=== PATIENT | male | born 1930 | race Caucasian/White ===

== ENCOUNTER 2018-10-10 15:16 | Inpatient (IN) | payer MEDICARE, OTHER ==
[~2018-10-10] VITALS: Ht 185.4 cm; Wt 83.7 kg
[~2018-10-10 15:16] MED LIST: ASPIRIN325 MG PO; BAYER CHEWABLE81 MG PO; CENTRUM COMPLE1 EACH PO; FLOMAX0.4 MG PO; GEMFIBROZIL600 MG PO; GLUCOPHAGE500 MG PO; LASIX20 MG PO; LOPRESSOR25 MG PO; METAMUCIL PACKE1 PKT PO; NORCO 5/325 TAB1 TA1 PO; PROAMATINE5 MG PO; VITAMIN B-121000 MC3 NG; VITAMIN D2000 UNIT PO
[2018-10-10 15:43] LABS: APPEARANCE CLEAR (CLEAR); BILIRUBIN NEGATIVE (NEGATIVE); COLOR YELLOW (YELLOW); GLUCOSE NEGATIVE (NEGATIVE); KETONE NEGATIVE (NEGATIVE); NITRITE NEGATIVE (NEGATIVE); PROTEIN NEGATIVE (NEGATIVE); SPECIFIC GRAVITY 1.015 (1.005-1.020); UROBILINOGEN NORMAL (NORMAL)
[2018-10-10 15:51] LABS: BASOPHILS 0.2 % (0-2); EOSINOPHILS 0.2 % (0-7); HEMATOCRIT 42.3 % (42.0-54.0); HEMOGLOBIN 14.4 g/dL (13.5-17.5); IMMATURE GRANULOCYTES 0.2 % (0-5); MCV 88.1 fL (80.0-100.0); MEAN PLATELET VOLUME 11.1 fL (7.4-10.4); MONOCYTES 7.7 % (2-11); NEUTROPHILS 86.7 % (40-80); PLATELET COUNT 318 10x3/uL (130-400); RDW 13.4 % (11.5-14.5); WBC 12.5 10x3/uL (4.8-10.8)
[2018-10-10 16:14] LABS: ALBUMIN 3.8 g/dL (3.4-5.0); ALKALINE PHOSPHATASE 59 U/L (46-116); ALT (SGPT) 25 U/L (10-68); BILIRUBIN - TOTAL 0.57 mg/dL (0.2-1.3); CALC OSMOLALITY 284 mosm/kg (275-300); CALCIUM 9.9 mg/dL (8.5-10.1); CARBON DIOXIDE 29.3 mmol/L (21.0-32.0); CHLORIDE - SERUM 101 mmol/L (98-107); CREATININE - SERUM 1.1 mg/dL (0.6-1.3); POTASSIUM - SERUM 4.8 mmol/L (3.5-5.1); PROTEIN - SERUM 7.2 g/dL (6.4-8.2); SODIUM 137 mmol/L (136-145); UREA NITROGEN 20 mg/dL (7-18); eGFR NON AFRICAN AMERICAN 67 mL/min (90-120)
[2018-10-10 16:16] LABS: GLUCOSE 247 mg/dL (74-106)
[2018-10-10 16:22] LABS: TROPONIN-I < 0.017 ng/mL (0.000-0.060)
[2018-10-10 16:30] LABS: AMYLASE - SERUM 1202 U/L (25-115); LIPASE 8647 U/L (73-393)
--- NOTE | 2018-10-10 18:25 | NUR ---
PER CT IV TO RIGHT WRIST POSSIBLE INFILTRATE DURING CT. SWELLING NOTED TO AREA. SWELLING NOTED AREA PRIOR TO CT DUE TO IV START ATTEMPT. PT NOT VOICING COMPLAINTS AT THIS TIME. IV RESITED DUE TO POSSIBLE INFILTRATE.
--- NOTE | 2018-10-10 18:38 | NUR ---
IV SALINE LOCK IN THE RIGHT WRIST WAS REMOVED DUE TO POSSIBLE INFILTRATE.
[2018-10-10 18:57] VITALS: BP 156/83
[2018-10-10 19:00] VITALS: BP 136/76
[2018-10-10 19:30] VITALS: BP 147/74
--- NOTE | 2018-10-10 19:42 | NUR ---
FSBS 137
--- NOTE | 2018-10-10 19:50 | NUR ---
ADVISED VIOLA WHITE OF FSBS 137. CANCELLED ORDER FOR INSULIN.
[2018-10-10 20:30] VITALS: BP 140/70
--- NOTE | 2018-10-10 21:28 | NUR ---
HPT TRANSPORTED TO THE FLOOR AT THIS TIME.
[2018-10-10 22:14] VITALS: BP 104/53; BMI 22.4
[2018-10-11] VITALS: BP 104/53
[2018-10-11 04:13] VITALS: BP 148/74
--- NOTE | 2018-10-11 07:07 | NUR ---
PT AWAKE AND ORIENTED, LYING IN BED ON BACK. PT STATES THAT THE MORPHINE REALLY ISN'T HELPING, PT HAS REACHED HIS MAX LIMIT ON HIS MORPHINE PUMP. NO OTHER COMPLAINTS/CONCERNS/COMMENTS AT THIS TIMIE, ALL QUESTIONS ANSWERED TOT HE BEST OF MY ABILITY. CL IN REACH, SRX2.
[2018-10-11 09:12] VITALS: BP 146/88
[2018-10-11 11:00] VITALS: BP 142/87
--- NOTE | 2018-10-11 11:06 | NUR ---
PT IS VERY FRUSTRATED HE HASN'T SEEN A DR YET. I EXPLAINED TO THE PT THAT DR. BORJAS SEE'S [facility] AND TYPICALLY ROUNDS LATER IN THE DAY, BUT THAT RICKI TERESA HAD ALREADY LOOKED AT HIS CHART AND PUT IN ORDERS, SO WE WERE DOING THINGS FOR HIM. D/C PTS RIVET TAPPING MACHINE OPERATOR PUMP, AND ADMINISTERED DILAUDID PER ORDER. PT HAS NO OTHER COMPLAINTS AT THIS TIME, BUT IS STILL MARKEDLY UNHAPPY AND FEELING IF NOTHING IS BEING DONE. CL IN REACH, SRX2.
--- NOTE | 2018-10-11 11:22 | NUR ---
WAISTED 5MG MORHPHINE FROM COIN MACHINE SUPERVISOR PUMP IN [place]. PT SAID THE DILAUDID FEELS LIKE IT WORKS A LITTLE BETTER, UNDERSTANDS HE CAN ONLY HAVE IT PRN. CL IN REACH, SRX2.
[2018-10-11 11:54] LABS: BASOPHILS 0.1 % (0-2); EOSINOPHILS 0 % (0-7); HEMATOCRIT 41.6 % (42.0-54.0); HEMOGLOBIN 14.3 g/dL (13.5-17.5); IMMATURE GRANULOCYTES 0.3 % (0-5); LYMPHOCYTES 2.8 % (15-50); MCH 30.3 pg (26.0-34.0); MCHC 34.4 g/dL (31.0-37.0); MCV 88.1 fL (80.0-100.0); MEAN PLATELET VOLUME 10.9 fL (7.4-10.4); MONOCYTES 10.1 % (2-11); NEUTROPHILS 86.7 % (40-80); PLATELET COUNT 330 10x3/uL (130-400); RBC 4.72 10x6/uL (4.20-6.10); RDW 13.7 % (11.5-14.5)
[2018-10-11 11:58] LABS: WBC 18.5 10x3/uL (4.8-10.8)
[2018-10-11 12:13] LABS: ALBUMIN 3.4 g/dL (3.4-5.0); BILIRUBIN - TOTAL 0.85 mg/dL (0.2-1.3); CARBON DIOXIDE 28.2 mmol/L (21.0-32.0); CREATININE - SERUM 1.1 mg/dL (0.6-1.3); POTASSIUM - SERUM 4.2 mmol/L (3.5-5.1); PROTEIN - SERUM 7.1 g/dL (6.4-8.2)
[2018-10-11 12:23] LABS: APTT 32.9 SECONDS (22.8-39.4); INR 1.11 (0.85-1.17); PROTIME 13.8 SECONDS (11.6-15.0)
[2018-10-11 14:21] VITALS: BMI 22.4
--- NOTE | 2018-10-11 14:50 | NUR ---
I have reviewed this patient and I concur with the Shift Assessment completed by the Licensed Practical Nurse today this shift.
[2018-10-11 15:00] VITALS: BP 139/86
--- NOTE | 2018-10-11 16:22 | NUR ---
PT AWAKE AND ORIENTED. NO COMPLAINTS, UNDERSTANDS PLAN OF CARE. AT BEDSIDE, THEY ARE BOTH CONCERNED BUT STATE UNDERSTANDING TO WHAT ALL IS GOING ON. PT IS WEARING SCDS FOR BLOOD CLOT PREVENTION .
[2018-10-11 16:43] VITALS: Ht 185.4 cm; Wt 83.7 kg
--- NOTE | 2018-10-11 16:54 | MORECARE ---
CASE MANAGEMENT DISCHARGE SUMMARY PATIENT: TYLER GIBBS UNIT: [id number] ADM DATE: 10/10/18 AGE: 88 : [birth year] SEX: M ROOM/BED: D.2102 AUTHOR: ROLLY,DOC PHYSICIAN: REFERRING PHYSICIAN: CÉSAR BORJAS MD DATE OF SERVICE: 10/11/18 Discharge Plan Patient Name: TYLER GIBBS Facility: [facility]:[place] : 1930 Planned Disposition: Home Anticipated Discharge Date: Discharge Date: Expected LOS: Initial Reviewer: [email or web address] Initial Review Date: 10/11/2018 Generated: 10/11/18 5:53 pm Comments DCP- Discharge Planning Updated by [email or web address]: Jose D Summers on 10/11/18 3:[address] Patient Name: TYLER GIBBS Admission Status: ER Accout number: [id number] Admission Date: 10-10-2018 : 1930 Admission Diagnosis: Attending: CÉSAR BORJAS Current LOS: 1 Anticipated DC Date: Planned Disposition: Home Primary Insurance: MEDICARE A & B Discharge Planning Comments: CM MET WITH PT AND SPOUSE IN ROOM TO DISCUSS DISCHARGE PLANNING AND NEEDS. TYLER GIBBS provided verbal consent to discuss current and ongoing needs with/in the presence of: SPOUSE, JYOTI. PT REPORTS LIVING AT HOME INDEPENDENTLY WITH HIS SPOUSE. PT HAS CPAP FROM [facility]. PT HAS NO OUTSIDE SERVICES ASSISTING IN THE HOME. CM DISCUSSED AVAILABILITY OF HOME HEALTH, REHAB SERVICES AND MEDICAL EQUIPMENT. PT DENIES DISCHARGE NEEDS, REPORTS HIS WILL PICK HIM UP FOR DISCHARGE HOME. PT PLANS TO DISCHARGE HOME WITH SPOUSE, HAS NO ANTICIPATED DISCHARGE NEEDS. SPOUSE TO TRANSPORT HOME AT DISCHARGE. CM TO FOLLOW AND ASSIST IF NEEDED. Pharmacovigilance Specialist: Jose D Summers DCPIA - Discharge Planning Initial Assessment Updated by [id number]: Jose D Summers on 10/11/18 4:51 pm * Is the patient Alert and Oriented? Yes * How many steps to enter\exit or inside your home? 0-O / 12-I * PCP [facility], [facility]NA[facility] [place] * Pharmacy [facility] * Preadmission Environment Home with Family * ADLs Independent * Equipment CPAP * Other Equipment [facility] - MEDICAL EQUIPMENT PROVIDER * List name and contact numbers for known caregivers / representatives who currently or will assist patient after discharge: JYOTI RIVER GIBBS, * Verbal permission to speak to the caregivers and representatives has been obtained from the patient. Yes * Community resources currently utilized None * Please name any agencies selected above. NONE * Additional services required to return to the preadmission environment? No * Can the patient safely return to the preadmission environment? Yes * Has this patient been hospitalized within the prior 30 days at any hospital? No Patient Name: TYLER GIBBS Page [id number] at 1654 All edits/amendments must be made on the electronic document DICTATION DATE: 10/11/181652 RIPRAP PLACING SUPERVISOR: FAMILIA 10/11/181652 RPT#: [id number] DC DATE: STATUS: ADM IN [facility] [address] [place] [address] END OF REPORT
--- NOTE | 2018-10-11 19:00 | NUR ---
PATIENT SITTING UP IN BED. NO COMPLAINTS AT THIS TIME. NO DISTRESS NOTED.. FAMILY AT BEDSIDE.
[2018-10-11 20:00] VITALS: BP 138/70
[2018-10-12 00:18] VITALS: BP 154/95
--- NOTE | 2018-10-12 02:00 | NUR ---
PATIENT LYAING IN BED. EYES CLOSED, CHEST RISING AND FALLING. NO DISTRESS NOTED.
[2018-10-12 04:00] VITALS: BP 185/99
[2018-10-12 06:04] LABS: BASOPHILS 0.1 % (0-2); EOSINOPHILS 0 % (0-7); HEMATOCRIT 42.2 % (42.0-54.0); HEMOGLOBIN 14.2 g/dL (13.5-17.5); IMMATURE GRANULOCYTES 0.4 % (0-5); LYMPHOCYTES 2.9 % (15-50); MCH 29.8 pg (26.0-34.0); MCHC 33.6 g/dL (31.0-37.0); MCV 88.7 fL (80.0-100.0); MEAN PLATELET VOLUME 11.6 fL (7.4-10.4); MONOCYTES 9.6 % (2-11); PLATELET COUNT 308 10x3/uL (130-400); RBC 4.76 10x6/uL (4.20-6.10); RDW 13.9 % (11.5-14.5); WBC 19.3 10x3/uL (4.8-10.8)
--- NOTE | 2018-10-12 06:11 | NUR ---
PATIENT LAYING IN BED. PATIENT HAS NO COMPLAINTS AT THIS TIME. NO DISTRESS NOTED.
[2018-10-12 06:45] LABS: ALBUMIN 3.1 g/dL (3.4-5.0); ANION GAP 13.7 mmol/L (8-16); BILIRUBIN - TOTAL 0.78 mg/dL (0.2-1.3); CALCIUM 8.6 mg/dL (8.5-10.1); CARBON DIOXIDE 27.5 mmol/L (21.0-32.0); CREATININE - SERUM 1.3 mg/dL (0.6-1.3); POTASSIUM - SERUM 4.2 mmol/L (3.5-5.1); PROTEIN - SERUM 6.2 g/dL (6.4-8.2)
--- NOTE | 2018-10-12 06:53 | NUR ---
INANA ROUNDING, WHITE BOARD UPDATED. PATIENT IS AWAKE AND RESTING IN THE BED. YELLOW GOWN ON, BED ALARM ON, CALL LIGHT IN REACH. PATIENT REPORTS PAIN AT 6/10 IN THE UPPER CHEST AREA. HE ALSO REPORTS LAST BM WAS THURSDAY MORNING.
--- NOTE | 2018-10-12 07:00 | NUR ---
PATIENT LAYING IN BED. NO COMPLAINTS AT THIS TIME. NO DISTRESS NOTED.
[2018-10-12 08:00] VITALS: BP 148/13
--- NOTE | 2018-10-12 09:10 | NUR ---
THE PATIENT HAS REMOVED THE IV TO THE RIGHT AC AREA WHILE HE WAS SLEEPING. CATH TIP INTACT.
[2018-10-12 12:00] VITALS: BP 144/84
[2018-10-12 15:45] VITALS: BP 154/78
[2018-10-12 20:00] VITALS: BP 163/80
[2018-10-13] VITALS (14 sets, daily range): BP systolic 131–175; BP diastolic 72–93
--- NOTE | 2018-10-13 02:00 | NUR ---
PATIENT GIVEN SHOWER. PATIENT BACK IN BED WITH BED ALARM ON. NO COMPLAINTS AT THIS TIME. NO DISTRESS NOTED.
--- NOTE | 2018-10-13 06:58 | NUR ---
INITIAL ROUNDING, BEDSIDE REPORT, PATIENT AWAKE AND RESTING IN BED, REPORTING PAIN OF 7/10 IN ABD. CONSENTS SIGNED AT THIS TIME. CALL LIGHT IN REACH
[2018-10-13 08:19] LABS: BASOPHILS 0.1 % (0-2); EOSINOPHILS 0.1 % (0-7); HEMATOCRIT 36.6 % (42.0-54.0); HEMOGLOBIN 12.3 g/dL (13.5-17.5); IMMATURE GRANULOCYTES 0.4 % (0-5); MCH 29.5 pg (26.0-34.0); MCHC 33.6 g/dL (31.0-37.0); MCV 87.8 fL (80.0-100.0); MONOCYTES 12.6 % (2-11); NEUTROPHILS 81.8 % (40-80); PLATELET COUNT 259 10x3/uL (130-400); RBC 4.17 10x6/uL (4.20-6.10); RDW 13.7 % (11.5-14.5); WBC 15.7 10x3/uL (4.8-10.8)
[2018-10-13 08:32] LABS: ALBUMIN 2.5 g/dL (3.4-5.0); ANION GAP 9.7 mmol/L (8-16); BILIRUBIN - TOTAL 0.7 mg/dL (0.2-1.3); CALCIUM 8.6 mg/dL (8.5-10.1); CARBON DIOXIDE 29.3 mmol/L (21.0-32.0); CREATININE - SERUM 1.1 mg/dL (0.6-1.3); PROTEIN - SERUM 6.3 g/dL (6.4-8.2)
--- NOTE | 2018-10-13 09:07 | NUR ---
GUSTAVO FROM SURG CALLED TO VERIFY THE CONSENTS BEING SIGNED AND ON THE CHART, ALL COMPLETE AND ON CHART. GUSTAVO CONFIRMED THERE IS NO PROP ORDERES AND STATED "ILL TAKE CARE OF THAT DOWN HERE, WE ARE ON THE WAY TO COME GET HIM" PATIENT INFORMED AND THE SPOUSE CALLED [phone] AND NOTIFIED. SHE WAS A BIT CONFUSED STATING "I JUST CALLED AND THEY SAID IT WOULD BED 1 PM"
--- NOTE | 2018-10-13 11:31 | NUR ---
RECVD REPORT FROM LORI IN [facility]. PATIENT DENIES PAIN AFTER .5 DILAUDID. ON O2 2LPM NC.
--- NOTE | 2018-10-13 15:07 | NUR ---
PATIENT COMPLAINING OF PAIN AND BELCHING. INSTRUCTED THE PATIENT AND SPOUSE THE BELCHING IS NORMAL AND A GOOD THING, INSTRUCTED ON POST PROCEDURE, BOTH STATE UNDERSTANDING.
--- NOTE | 2018-10-13 15:21 | NUR ---
CALLED DR BORJAS INQUIRING ABOUT DIET, CLEAR AND ADVANCE TOLERATED
--- NOTE | 2018-10-13 19:00 | NUR ---
PATIENT SITTING UP TO SIDE OF BED. AT BEDSIDE. PATIENT HAS NO COMPLAINTS AT THIS TIME. NO DISTRESS NOTED.
--- NOTE | 2018-10-14 02:18 | NUR ---
PATIENT'S IV PULLED OUT WHILE SLEEPING. IV TIP INTACT. NEW IV TO RIGHT FOREARM X1 ATTEMPT.
[2018-10-14 04:00] VITALS: BP 170/82
[2018-10-14 04:30] LABS: BASOPHILS 0 % (0-2); EOSINOPHILS 0.1 % (0-7); HEMATOCRIT 34.1 % (42.0-54.0); HEMOGLOBIN 11.5 g/dL (13.5-17.5); IMMATURE GRANULOCYTES 0.4 % (0-5); LYMPHOCYTES 3.9 % (15-50); MCH 29.3 pg (26.0-34.0); MCHC 33.7 g/dL (31.0-37.0); MCV 86.8 fL (80.0-100.0); MONOCYTES 15.2 % (2-11); NEUTROPHILS 80.4 % (40-80); RBC 3.93 10x6/uL (4.20-6.10); RDW 13.5 % (11.5-14.5); WBC 14.2 10x3/uL (4.8-10.8)
[2018-10-14 04:33] LABS: PLATELET COUNT 319 10x3/uL (130-400)
[2018-10-14 04:56] LABS: ALBUMIN 2.4 g/dL (3.4-5.0); ALKALINE PHOSPHATASE 48 U/L (46-116); ALT (SGPT) 31 U/L (10-68); BILIRUBIN - TOTAL 0.89 mg/dL (0.2-1.3); CALC OSMOLALITY 279 mosm/kg (275-300); CALCIUM 8.1 mg/dL (8.5-10.1); CARBON DIOXIDE 26.3 mmol/L (21.0-32.0); CHLORIDE - SERUM 102 mmol/L (98-107); CREATININE - SERUM 0.9 mg/dL (0.6-1.3); GLUCOSE 213 mg/dL (74-106); LIPASE 128 U/L (73-393); POTASSIUM - SERUM 3.9 mmol/L (3.5-5.1); PROTEIN - SERUM 6.3 g/dL (6.4-8.2); SODIUM 136 mmol/L (136-145); UREA NITROGEN 18 mg/dL (7-18); eGFR NON AFRICAN AMERICAN 84 mL/min (90-120)
--- NOTE | 2018-10-14 08:10 | NUR ---
INITIAL ROUNDING, BEDSIDE REPORT. WHITE BOARD UPDATED. PATIENTS IV TO THE RIGHT LOWER ARM IS INFILTRATED, ARM SWOLLEN/TIGHT. FLUIDS STOPPED AT THIS TIME. CALL LIGHT IN REACH. PATIENT DENIES BM LAST NIGHT. SPOUSE AT BEDSIDE.
[2018-10-14 08:22] VITALS: BP 185/92
[2018-10-14 13:22] VITALS: BP 168/94
--- NOTE | 2018-10-14 16:55 | MORECARE ---
CASE MANAGEMENT DISCHARGE SUMMARY PATIENT: TYLER GIBBS UNIT: [id number] ADM DATE: 10/10/18 AGE: 88 : [birth year] SEX: M ROOM/BED: D.2102 AUTHOR: ROLLY,DOC PHYSICIAN: REFERRING PHYSICIAN: CÉSAR BORJAS MD DATE OF SERVICE: 10/14/18 Discharge Plan Patient Name: TYLER GIBBS Facility: [facility]:[place] : 1930 Planned Disposition: Home with Home Health Anticipated Discharge Date: 10/14/18 Discharge Date: Expected LOS: 4 Initial Reviewer: [email or web address] Initial Review Date: 10/11/2018 Generated: 10/14/18 5:55 pm DCP- Discharge Planning Updated by [email or web address]: Jose D Summers on 10/11/18 3:[address] Patient Name: TYLER GIBBS Admission Status: ER Accout number: [id number] Admission Date: 10-10-2018 : 1930 Admission Diagnosis: Attending: CÉSAR BORJAS Current LOS: 1 Anticipated DC Date: Planned Disposition: Home Primary Insurance: MEDICARE A & B Discharge Planning Comments: CM MET WITH PT AND SPOUSE IN ROOM TO DISCUSS DISCHARGE PLANNING AND NEEDS. TYLER GIBBS provided verbal consent to discuss current and ongoing needs with/in the presence of: SPOUSE, JYOTI. PT REPORTS LIVING AT HOME INDEPENDENTLY WITH HIS SPOUSE. PT HAS CPAP FROM [facility]. PT HAS NO OUTSIDE SERVICES ASSISTING IN THE HOME. CM DISCUSSED AVAILABILITY OF HOME HEALTH, REHAB SERVICES AND MEDICAL EQUIPMENT. PT DENIES DISCHARGE NEEDS, REPORTS HIS WILL PICK HIM UP FOR DISCHARGE HOME. PT PLANS TO DISCHARGE HOME WITH SPOUSE, HAS NO ANTICIPATED DISCHARGE NEEDS. SPOUSE TO TRANSPORT HOME AT DISCHARGE. CM TO FOLLOW AND ASSIST IF NEEDED. Beauty Counselor: Jose D Summers DCPIA - Discharge Planning Initial Assessment Updated by [email or web address]: Jose D Summers on 10/11/18 4:51 pm * Is the patient Alert and Oriented? Yes * How many steps to enter\exit or inside your home? 0-O / 12-I * PCP [facility], [place] * [facility] * Preadmission Environment Home with Family * ADLs Independent * Equipment CPAP * Other Equipment [facility] - MEDICAL EQUIPMENT PROVIDER * List name and contact numbers for known caregivers / representatives who currently or will assist patient after discharge: JYOTI GIBBSRIVER, * Verbal permission to speak to the caregivers and representatives has been obtained from the patient. Yes * Community resources currently utilized None * Please name any agencies selected above. NONE * Additional services required to return to the preadmission environment? No * Can the patient safely return to the preadmission environment? Yes * Has this patient been hospitalized within the prior 30 days at any hospital? No External Providers External Provider: [facility] Next Contact Date: 10/15/2018 Service Request Date: Service Type: Resolution: Reviewer: Comments: Coverage Notice Reviewer: [email or web address] - Jose D Summers Notice Issued Date-Time: 10/14/2018 11:25 Notice Type: IM Discharge Notice Notice Delivered To: Patient Relationship to Patient: Chinese Teacher Name: Delivery Method: HAND - Hand Delivered Latesha Days: Prior Verbal Notification: Recipient Understood Notice: Yes Recipient Signature: Yes Med Rec Note Co-signed by Attending: Coverage Notice Comment: Last DP export: 10/11/18 3:54 p Patient Name: TYLER GIBBS Page 16756 at 1655 All edits/amendments must be made on the electronic document DICTATION DATE: 10/14/181654 AUDIO VISUAL COLLECTIONS COORDINATOR: FAMILIA 10/14/181654 RPT#: [id number] DC DATE: STATUS: ADM IN [facility] [address] [place] [address] END OF REPORT
--- NOTE | 2018-10-14 17:03 | MORECARE ---
CASE MANAGEMENT DISCHARGE SUMMARY PATIENT: TYLER GIBBS UNIT: [id number] ADM DATE: 10/10/18 AGE: 88 : [birth year] SEX: M ROOM/BED: D.2102 AUTHOR: ROLLY,DOC PHYSICIAN: REFERRING PHYSICIAN: CÉSAR BORJAS MD DATE OF SERVICE: 10/14/18 Discharge Plan Patient Name: TYLER GIBBS Facility: [facility]:[place] : 1930 Planned Disposition: Home with Home Health Anticipated Discharge Date: 10/14/18 Discharge Date: Expected LOS: 4 Initial Reviewer: [email or web address] Initial Review Date: 10/11/2018 Generated: 10/14/18 6:03 pm DCP- Discharge Planning Updated by [email or web address]: Jose D Summers on 10/11/18 3:[address] Patient Name: TYLER GIBBS Admission Status: ER Accout number: [id number] Admission Date: 10-10-2018 : 1930 Admission Diagnosis: Attending: CÉSAR BORJAS Current LOS: 1 Anticipated DC Date: Planned Disposition: Home Primary Insurance: MEDICARE A & B Discharge Planning Comments: CM MET WITH PT AND SPOUSE IN ROOM TO DISCUSS DISCHARGE PLANNING AND NEEDS. TYLER GIBBS provided verbal consent to discuss current and ongoing needs with/in the presence of: SPOUSE, JYOTI. PT REPORTS LIVING AT HOME INDEPENDENTLY WITH HIS SPOUSE. PT HAS CPAP FROM [facility]. PT HAS NO OUTSIDE SERVICES ASSISTING IN THE HOME. CM DISCUSSED AVAILABILITY OF HOME HEALTH, REHAB SERVICES AND MEDICAL EQUIPMENT. PT DENIES DISCHARGE NEEDS, REPORTS HIS WILL PICK HIM UP FOR DISCHARGE HOME. PT PLANS TO DISCHARGE HOME WITH SPOUSE, HAS NO ANTICIPATED DISCHARGE NEEDS. SPOUSE TO TRANSPORT HOME AT DISCHARGE. CM TO FOLLOW AND ASSIST IF NEEDED. Livestock Auctioneer: Jose D Summers DCPIA - Discharge Planning Initial Assessment Updated by [email or web address]: Jose D Summers on 10/11/18 4:51 pm * Is the patient Alert and Oriented? Yes * How many steps to enter\exit or inside your home? 0-O / 12-I * PCP [facility], [place] * [facility] * Preadmission Environment Home with Family * ADLs Independent * Equipment CPAP * Other Equipment [facility] - MEDICAL EQUIPMENT PROVIDER * List name and contact numbers for known caregivers / representatives who currently or will assist patient after discharge: RIVER MON[place], * Verbal permission to speak to the caregivers and representatives has been obtained from the patient. Yes * Community resources currently utilized None * Please name any agencies selected above. NONE * Additional services required to return to the preadmission environment? No * Can the patient safely return to the preadmission environment? Yes * Has this patient been hospitalized within the prior 30 days at any hospital? No Coverage Notice Reviewer: JULIET Summers Notice Issued Date-Time: 10/14/2018 11:25 Notice Type: IM Discharge Notice Notice Delivered To: Patient Relationship to Patient: Application Systems Administrator Name: Delivery Method: HAND - Hand Delivered Latesha Days: Prior Verbal Notification: Recipient Understood Notice: Yes Recipient Signature: Yes Med Rec Note Co-signed by Attending: Coverage Notice Comment: Reviewer: JULIET Summers Notice Issued Date-Time: 10/14/2018 11:25 Notice Type: IM Discharge Notice Notice Delivered To: Family Member Relationship to Patient: Spouse Application Systems Administrator Name: JYOTI Delivery Method: HAND - Hand Delivered Latesha Days: Prior Verbal Notification: Recipient Understood Notice: Yes Recipient Signature: Yes Med Rec Note Co-signed by Attending: Coverage Notice Comment: Reviewer: JULIET Summers Notice Issued Date-Time: 10/14/2018 11:25 Notice Type: Patient Choice Letter Notice Delivered To: Family Member Relationship to Patient: Spouse Application Systems Administrator Name: JYOTI Delivery Method: HAND - Hand Delivered Latesha Days: Prior Verbal Notification: Recipient Understood Notice: Yes Recipient Signature: Yes Med Rec Note Co-signed by Attending: Coverage Notice Comment: [facility] Last DP export: 10/14/18 3:55 p Patient Name: TYLER GIBBS Page [id number] at 1703 All edits/amendments must be made on the electronic document DICTATION DATE: 10/14/181702 SUPERVISOR FOOD CHECKERS AND CASHIERS: FAMILIA 10/14/181702 RPT#: [id number] DC DATE: STATUS: ADM IN [facility] [address] [place] [address] END OF REPORT
--- NOTE | 2018-10-14 17:13 | MORECARE ---
CASE MANAGEMENT DISCHARGE SUMMARY PATIENT: TYLER GIBBS UNIT: [id number] ADM DATE: 10/10/18 AGE: 88 : [birth year] SEX: M ROOM/BED: D.2102 AUTHOR: ROLLY,DOC PHYSICIAN: REFERRING PHYSICIAN: CÉSAR BORJAS MD DATE OF SERVICE: 10/14/18 Discharge Plan Patient Name: TYLER GIBBS Facility: [facility]:[place] : 1930 Planned Disposition: Home with Home Health Anticipated Discharge Date: 10/14/18 Discharge Date: Expected LOS: 4 Initial Reviewer: [email or web address] Initial Review Date: 10/11/2018 Generated: 10/14/18 6:12 pm Comments DCP- Discharge Planning Updated by [email or web address]: Jose D Summers on 10/14/18 4:[address] Patient Name: TYLER GIBBS Encounter No: [id number] : 1930 Primary Insurance: MEDICARE A & B Anticipated DC Date: 10-14-2018 Planned Disposition: Home with Home Health External Planned Provider: [facility] DCP follow-up note: CM RECEIVED REQUEST TO MEET WITH PT AND SPOUSE IN ROOM TO DISCUSS DISCHARGE PLANNING. PT'S SPOUSE IS CONCERNED THAT PT MAY DISCHARGE HOME TODAY AND SHE HAS THINGS TO DO TODAY AND WOULD LIKE PT TO STAY IN THE HOSPITAL ONE MORE NIGHT. CM DISCUSSED WHEN PT IS MEDICALLY STABLE FOR DISCHARGE PT WILL BE DISCHARGED. PT'S SPOUSE WANTS CM TO ENSURE THAT THE DOCTOR DOES NOT DISCHARGE PT TODAY. CM EXPLAINED CM'S ROLE. CM OFFERED TO ASSIST WITH REHAB PLACEMENT OR OTHER OUT OF HOME PLACMENT. PT AND SPOUSE DECLINED. PT STATES HE WILL BE GOING HOME. PT'S SPOUSE STATES SHE WILL BE HERE AT 5PM BUT WILL NOT BE READY TO TAKE PT HOME UNTIL TOMORROW. PT'S SPOUSE REQUESTED HOME HEALTH WITH [facility]. CHOICE LETTER SIGNED. IMPORTANT MESSAGE FROM MEDICARE PROVIDED AND EXPLAINED. CM OBTAINED HOME HEALTH ORDER. CM CALLED [facility] [phone],. SPOKE TO NISSA WHO ACCEPTED REFERRAL FOR ADMIT ON THURSDAY. CM FAXED REFERRAL TO [facility] AT [phone]. FOR DISCHARGE HOME WITH HOME HEALTH, NOTIFY [facility] AT [phone], FAX DISCHARGE INFORMATION TO [facility] AT [phone]. Jose D Summers,. CASE MANAGEMENT DCP- Discharge Planning Updated by [email or web address]: Jose D Summers on 10/11/18 3:[address] Patient Name: TYLER GIBBS Admission Status: ER Accout number: [id number] Admission Date: 10-10-2018 : 1930 Admission Diagnosis: Attending: CÉSAR BORJAS Current LOS: 1 Anticipated DC Date: Planned Disposition: Home Primary Insurance: MEDICARE A & B Discharge Planning Comments: CM MET WITH PT AND SPOUSE IN ROOM TO DISCUSS DISCHARGE PLANNING AND NEEDS. TYLER GIBBS provided verbal consent to discuss current and ongoing needs with/in the presence of: SPOUSE, JYOTI. PT REPORTS LIVING AT HOME INDEPENDENTLY WITH HIS SPOUSE. PT HAS CPAP FROM [facility]. PT HAS NO OUTSIDE SERVICES ASSISTING IN THE HOME. CM DISCUSSED AVAILABILITY OF HOME HEALTH, REHAB SERVICES AND MEDICAL EQUIPMENT. PT DENIES DISCHARGE NEEDS, REPORTS HIS WILL PICK HIM UP FOR DISCHARGE HOME. PT PLANS TO DISCHARGE HOME WITH SPOUSE, HAS NO ANTICIPATED DISCHARGE NEEDS. SPOUSE TO TRANSPORT HOME AT DISCHARGE. CM TO FOLLOW AND ASSIST IF NEEDED. Human Resources Services Specialist: Jose D Summers DCPIA - Discharge Planning Initial Assessment Updated by [email or web address]: Jose D Summers on 10/11/18 4:51 pm * Is the patient Alert and Oriented? Yes * How many steps to enter\exit or inside your home? 0-O / 12-I * PCP [facility], [place]I [place] * [facility] * Preadmission Environment Home with Family * ADLs Independent * Equipment CPAP * Other Equipment [facility] - MEDICAL EQUIPMENT PROVIDER * List name and contact numbers for known caregivers / representatives who currently or will assist patient after discharge: JYOTI WINKLERRIVER MCDONALD, * Verbal permission to speak to the caregivers and representatives has been obtained from the patient. Yes * Community resources currently utilized None * Please name any agencies selected above. NONE * Additional services required to return to the preadmission environment? No * Can the patient safely return to the preadmission environment? Yes * Has this patient been hospitalized within the prior 30 days at any hospital? No Coverage Notice Reviewer: [id number] - Jose D Summers Notice Issued Date-Time: 10/14/2018 11:25 Notice Type: IM Discharge Notice Notice Delivered To: Patient Relationship to Patient: Senior Group Manager Name: Delivery Method: HAND - Hand Delivered Latesha Days: Prior Verbal Notification: Recipient Understood Notice: Yes Recipient Signature: Yes Med Rec Note Co-signed by Attending: Coverage Notice Comment: Reviewer: JULIET Summers Notice Issued Date-Time: 10/14/2018 11:25 Notice Type: IM Discharge Notice Notice Delivered To: Family Member Relationship to Patient: Spouse Senior Group Manager Name: JYOTI Delivery Method: HAND - Hand Delivered Latesha Days: Prior Verbal Notification: Recipient Understood Notice: Yes Recipient Signature: Yes Med Rec Note Co-signed by Attending: Coverage Notice Comment: Reviewer: JULIET Summers Notice Issued Date-Time: 10/14/2018 11:25 Notice Type: Patient Choice Letter Notice Delivered To: Family Member Relationship to Patient: Spouse Senior Group Manager Name: JYOTI Delivery Method: HAND - Hand Delivered Latesha Days: Prior Verbal Notification: Recipient Understood Notice: Yes Recipient Signature: Yes Med Rec Note Co-signed by Attending: Coverage Notice Comment: [facility] Last DP export: 10/14/18 4:03 p Patient Name: TYLER GIBBS Page 14667 at 1713 All edits/amendments must be made on the electronic document DICTATION DATE: 10/14/181711 TREAD BOOKER: FAMILIA 10/14/181711 RPT#: [id number] DC DATE: STATUS: ADM IN [facility] [address] [place] [address] END OF REPORT
[2018-10-14 17:31] VITALS: BP 164/83
[2018-10-14 20:00] VITALS: BP 172/95
--- NOTE | 2018-10-14 20:17 | NUR ---
ASSISTED THE PATIENT WITH A SHOWER AND LINEN CHANGE. PATIENT HAD LARGE SOFT BM IN BED.
[2018-10-15] VITALS: BP 148/67
[2018-10-15 04:48] LABS: BASOPHILS 0.1 % (0-2); EOSINOPHILS 0.3 % (0-7); HEMATOCRIT 32.2 % (42.0-54.0); IMMATURE GRANULOCYTES 0.5 % (0-5); LYMPHOCYTES 5.3 % (15-50); MCH 29.5 pg (26.0-34.0); MCHC 34.2 g/dL (31.0-37.0); MCV 86.3 fL (80.0-100.0); MEAN PLATELET VOLUME 10.7 fL (7.4-10.4); MONOCYTES 15.9 % (2-11); NEUTROPHILS 77.9 % (40-80); PLATELET COUNT 282 10x3/uL (130-400); RBC 3.73 10x6/uL (4.20-6.10); RDW 13.3 % (11.5-14.5); WBC 15.2 10x3/uL (4.8-10.8)
[2018-10-15 04:57] LABS: CALC OSMOLALITY 282 mosm/kg (275-300); CALCIUM 8.2 mg/dL (8.5-10.1); CARBON DIOXIDE 26.9 mmol/L (21.0-32.0); CHLORIDE - SERUM 103 mmol/L (98-107); CREATININE - SERUM 0.9 mg/dL (0.6-1.3); POTASSIUM - SERUM 3.5 mmol/L (3.5-5.1); SODIUM 138 mmol/L (136-145); UREA NITROGEN 21 mg/dL (7-18); eGFR NON AFRICAN AMERICAN 84 mL/min (90-120)
[2018-10-15 04:59] LABS: GLUCOSE 162 mg/dL (74-106)
--- NOTE | 2018-10-15 05:41 | NUR ---
I have reviewed this patient and I concur with the Shift Assessment completed by the Licensed Practical Nurse today this shift.
--- NOTE | 2018-10-15 07:52 | NUR ---
PT LAYING ON LEFT SIDE RESTING WITH EYES CLOSED. RR EVEN AND UNLABORED. NO S/S OF DISTRESS. BED ALARM ON AND IN PLACE. BED LOW CALL LIGHT WITHIN REACH. WILL CONTINUE TO MONITOR.
[2018-10-15 09:49] VITALS: BP 145/67
--- NOTE | 2018-10-15 10:33 | MORECARE ---
CASE MANAGEMENT DISCHARGE SUMMARY PATIENT: TYLER GIBBS UNIT: [id number] ADM DATE: 10/10/18 AGE: 88 : [birth year] SEX: M ROOM/BED: D.2102 AUTHOR: ROLLY,DOC PHYSICIAN: REFERRING PHYSICIAN: CÉSAR BORJAS MD DATE OF SERVICE: 10/15/18 Discharge Plan Patient Name: TYLER GIBBS Facility: [facility]:[place] : 1930 Planned Disposition: Home with Home Health Anticipated Discharge Date: 10/14/18 Discharge Date: Expected LOS: 4 Initial Reviewer: [email or web address] Initial Review Date: 10/11/2018 Generated: 10/15/18 11:33 am Comments DCP- Discharge Planning Updated by [email or web address]: Lisa Ramírez on 10/15/18 9:[address] PATIENT IS SEEN IN [facility] WILL FORWARD DISCHARGE ORDERS FROM [facility] TO [place] WHEN RECEIVED. DCP- Discharge Planning Updated by [id number]: Lisa Ramírez on 10/15/18 9:[address] [facility] HAS RECEIVED A REFERRAL W/ ORDERS FROM [facility] PER [facility] TODAY. PATIENT IS ON THE LIST TO BE SEEN. POSSIBLE DISCHARGE TO HOME TODAY. AWAITI MD ROUNDS. SURGERY HAS CLEARED PATIENT FOR DISCHARGE PER THE 10/14/18 NOTE. DCP- Discharge Planning Updated by [id number]: Jose D Summers on 10/14/18 4:[address] Patient Name: TYLER GIBBS Encounter No: [id number] : 1930 Primary Insurance: MEDICARE A & B Anticipated DC Date: 10-14-2018 Planned Disposition: Home with Home Health External Planned Provider: [facility] DCP follow-up note: CM RECEIVED REQUEST TO MEET WITH PT AND SPOUSE IN ROOM TO DISCUSS DISCHARGE PLANNING. PT'S SPOUSE IS CONCERNED THAT PT MAY DISCHARGE HOME TODAY AND SHE HAS THINGS TO DO TODAY AND WOULD LIKE PT TO STAY IN THE HOSPITAL ONE MORE NIGHT. CM DISCUSSED WHEN PT IS MEDICALLY STABLE FOR DISCHARGE PT WILL BE DISCHARGED. PT'S SPOUSE WANTS CM TO ENSURE THAT THE DOCTOR DOES NOT DISCHARGE PT TODAY. CM EXPLAINED CM'S ROLE. CM OFFERED TO ASSIST WITH REHAB PLACEMENT OR OTHER OUT OF HOME PLACMENT. PT AND SPOUSE DECLINED. PT STATES HE WILL BE GOING HOME. PT'S SPOUSE STATES SHE WILL BE HERE AT 5PM BUT WILL NOT BE READY TO TAKE PT HOME UNTIL TOMORROW. PT'S SPOUSE REQUESTED HOME HEALTH WITH [facility]. CHOICE LETTER SIGNED. IMPORTANT MESSAGE FROM MEDICARE PROVIDED AND EXPLAINED. CM OBTAINED HOME HEALTH ORDER. CM CALLED [facility] [phone],. SPOKE TO NISSA WHO ACCEPTED REFERRAL FOR ADMIT ON THURSDAY. CM FAXED REFERRAL TO [place] AT [phone]. FOR DISCHARGE HOME WITH HOME HEALTH, NOTIFY MIST[facility] AT [phone], FAX DISCHARGE INFORMATION TO [place] AT [phone]. Jose D Summers,. CASE MANAGEMENT DCP- Discharge Planning Updated by [id number]: Jose D Summers on 10/11/18 3:[address] Patient Name: TYLER GIBBS Admission Status: ER Accout number: [id number] Admission Date: 10-10-2018 : 1930 Admission Diagnosis: Attending: CÉSAR BORJAS Current LOS: 1 Anticipated DC Date: Planned Disposition: Home Primary Insurance: MEDICARE A & B Discharge Planning Comments: CM MET WITH PT AND SPOUSE IN ROOM TO DISCUSS DISCHARGE PLANNING AND NEEDS. TYLER GIBBS provided verbal consent to discuss current and ongoing needs with/in the presence of: SPOUSE, JYOTI. PT REPORTS LIVING AT HOME INDEPENDENTLY WITH HIS SPOUSE. PT HAS CPAP FROM [facility]. PT HAS NO OUTSIDE SERVICES ASSISTING IN THE HOME. CM DISCUSSED AVAILABILITY OF HOME HEALTH, REHAB SERVICES AND MEDICAL EQUIPMENT. PT DENIES DISCHARGE NEEDS, REPORTS HIS WILL PICK HIM UP FOR DISCHARGE HOME. PT PLANS TO DISCHARGE HOME WITH SPOUSE, HAS NO ANTICIPATED DISCHARGE NEEDS. SPOUSE TO TRANSPORT HOME AT DISCHARGE. CM TO FOLLOW AND ASSIST IF NEEDED. Care Team Coordinator Scheduler: Jose D Summers DCPIA - Discharge Planning Initial Assessment Updated by [id number]: Jose D Summers on 10/11/18 4:51 pm * Is the patient Alert and Oriented? Yes * How many steps to enter\exit or inside your home? 0-O / 12-I * PCP [facility], RICKI SEVILLA * Pharmacy [facility] * Preadmission Environment Home with Family * ADLs Independent * Equipment CPAP * Other Equipment [facility] - MEDICAL EQUIPMENT PROVIDER * List name and contact numbers for known caregivers / representatives who currently or will assist patient after discharge: [facility] [place], * Verbal permission to speak to the caregivers and representatives has been obtained from the patient. Yes * Community resources currently utilized None * Please name any agencies selected above. NONE * Additional services required to return to the preadmission environment? No * Can the patient safely return to the preadmission environment? Yes * Has this patient been hospitalized within the prior 30 days at any hospital? No Coverage Notice Reviewer: JULIET Summers Notice Issued Date-Time: 10/14/2018 11:25 Notice Type: IM Discharge Notice Notice Delivered To: Patient Relationship to Patient: Manager International Name: Delivery Method: HAND - Hand Delivered Latesha Days: Prior Verbal Notification: Recipient Understood Notice: Yes Recipient Signature: Yes Med Rec Note Co-signed by Attending: Coverage Notice Comment: Reviewer: JULIET Summers Notice Issued Date-Time: 10/14/2018 11:25 Notice Type: IM Discharge Notice Notice Delivered To: Family Member Relationship to Patient: Spouse Manager International Name: JYOTI Delivery Method: HAND - Hand Delivered Latesha Days: Prior Verbal Notification: Recipient Understood Notice: Yes Recipient Signature: Yes Med Rec Note Co-signed by Attending: Coverage Notice Comment: Reviewer: JULIET Summers Notice Issued Date-Time: 10/14/2018 11:25 Notice Type: Patient Choice Letter Notice Delivered To: Family Member Relationship to Patient: Spouse Manager International Name: JYOTI Delivery Method: HAND - Hand Delivered Latesha Days: Prior Verbal Notification: Recipient Understood Notice: Yes Recipient Signature: Yes Med Rec Note Co-signed by Attending: Coverage Notice Comment: [facility] Last DP export: 10/14/18 4:13 p Patient Name: TYLER GIBBS Page [id number] at 1033 All edits/amendments must be made on the electronic document DICTATION DATE: 10/15/18 1033 ROOF MECHANIC: FAMILIA 10/15/18 1033 RPT#: [id number] DC DATE: STATUS: ADM IN [facility] [address] [place] [address] END OF REPORT
[2018-10-15 12:21] VITALS: BP 135/75
--- NOTE | 2018-10-15 14:58 | NUR ---
Nutrition follow-up: Diet: ADA consistent CHO PO intake has been poor; pt constipated and Dulcolax started Pt had BM; PO intake may improve now Labs reviewed RDN following.
--- NOTE | 2018-10-15 15:27 | NUR ---
UP TO BR WITH SAMPLE STEAMER ASSIST. AT BS. IV INFUSING. WILL CONT. TO MONITOR NEEDS.
--- NOTE | 2018-10-15 16:51 | NUR ---
I have reviewed this patient and I concur with the Shift Assessment completed by the Licensed Practical Nurse today this shift.
[2018-10-15 17:31] VITALS: BP 163/84
--- NOTE | 2018-10-15 19:30 | NUR ---
PT NOTED SITTING IN RECLINER IN HIS ROOM VISITING WITH HIS . HE IS ALERT AND ORIENTED X 3. PT STATES HE FEELS DISCOMFORT ALL OVER, BUT HAS NO SPECIFIC COMPLAINTS. PT ASSISTED INTO BED WITH MOD ASSIST PER HIS REQUEST. O2 IS ON @ 2LPM PER NC. NO SOB NOTED. INCISIONS TO ABD ARE CDI AND HEALING WELL. SR'S ARE UP X 2 IN BED. CALL LIGHT AND BEDSIDE TABLE ARE WITHIN EASY REACH.
[2018-10-15 20:00] VITALS: BP 177/90
--- NOTE | 2018-10-15 22:18 | NUR ---
PT IS RESTING QUIETLY IN BED WITH EYES CLOSED. RESPS ARE EVEN AND UNLABORED. NO ACUTE DISTRESS NOTED.
[2018-10-16] VITALS: BP 164/88
--- NOTE | 2018-10-16 01:56 | NUR ---
RESTING IN BED WITH EYES CLOSED.
--- NOTE | 2018-10-16 03:59 | NUR ---
I have reviewed this patient and I concur with the Shift Assessment completed by the Licensed Practical Nurse today this shift.
[2018-10-16 04:30] VITALS: BP 161/74
[2018-10-16 04:44] LABS: BASOPHILS 0.1 % (0-2); EOSINOPHILS 1.9 % (0-7); HEMATOCRIT 31.9 % (42.0-54.0); HEMOGLOBIN 10.9 g/dL (13.5-17.5); IMMATURE GRANULOCYTES 0.9 % (0-5); LYMPHOCYTES 6.8 % (15-50); MCH 29.4 pg (26.0-34.0); MCHC 34.2 g/dL (31.0-37.0); MEAN PLATELET VOLUME 10.9 fL (7.4-10.4); MONOCYTES 20.4 % (2-11); NEUTROPHILS 69.9 % (40-80); PLATELET COUNT 321 10x3/uL (130-400); RBC 3.71 10x6/uL (4.20-6.10); RDW 13.2 % (11.5-14.5); WBC 13.9 10x3/uL (4.8-10.8)
[2018-10-16 04:50] LABS: CARBON DIOXIDE 26.7 mmol/L (21.0-32.0)
[2018-10-16 04:54] LABS: CREATININE - SERUM 1.2 mg/dL (0.6-1.3); POTASSIUM - SERUM 4.7 mmol/L (3.5-5.1)
--- NOTE | 2018-10-16 07:17 | NUR ---
PT ASLEEP LYING ON LEFT SIDE. BREATHS EVEN/REGULAR/UNLABORED, DID NOT WAKE I ENTERED, DID NOT FURTHER DISTURB AT THIS TIME. CL IN REACH, SRX2.
[2018-10-16 08:06] VITALS: BP 183/88
[2018-10-16 12:26] VITALS: BP 118/67
--- NOTE | 2018-10-16 16:13 | NUR ---
PT AND REQUESTED THAT HE HAVE A WALK AROUND THE FLOOR. ASSISTED PT WITH WHEELCAHIR AND HOLDING THE I/V POLE. PT DID WELL, STOPPING FOR SHORT BREAKS FOR ONE [place] TRIBE AROUND MED2. PT IS NOW RESTIN COMFORTABLY IN BED. PT HAS HAD A SHOWER TODAY WITH MINIMAL ASSIST. NO CURRENT COMPLAINTS/CONCERNS/QUESTIONS FROM FAMILY OR PT. CL IN REACH, SRX2, WALKER IN ROOM, AT BEDSIDE.
[2018-10-16 20:00] VITALS: BP 178/86
--- NOTE | 2018-10-16 23:07 | NUR ---
INITIAL ROUNDS COMPLETED AT 191 HRS. PT RESTING WITH EYES CLOSED. RESP EVEN AND REGULAR. ASSESSMENT COMPLETED AT 194 HRS. ALERT AND ORIENTED TO PERSON, PLACE AND TIME. GOMEZ. IV TO LFA WITH D5LR WITH 20 KCLA T 75CC/HR. IV PATENT. LUNGS CTA. ABD DISTENDED WITH ACTIVE BS NOTED. INCISIONS X3 NOTED WITH STERI STRIPS CDI. PM FSBS 201. 4 UNITS REG INSULIN GIVEN SUB-Q TO UPPER L ARM. PM MEDS GIVEN. BP 178/86. APRESOLINE 10MG SIVP GIVEN AT 2130 HRS. AT 2215 H RS. PT STATED HE WAS FEELING SOB. O2 2LNC PLACE. O2 SAT 97% WITH SBP IN 150'S. ASSISTED PT TO CHAIR. PT STATED FELT BETTER AFTER SITTING IN CHAIR FOR A FEW MINUTES. ASSISTED PT BACK TO BED. PT CURRENTLY RESTING WITH EYES CLOSED. RESP EVEN AND REGULAR. SR UP X2, CALL LIGHT WITHIN REACH.
[2018-10-17] VITALS: BP 153/75
--- NOTE | 2018-10-17 00:12 | NUR ---
PT RESTING WITH EYES CLOSED. RESP EVEN AND REGULAR. SR UP X2, CALL LIGHT WITHIN REACH.
--- NOTE | 2018-10-17 02:16 | NUR ---
PT RESTING WITH EYES CLOSED. RESP EVEN AND REGULAR. SR UP X2, CALL LIGHT WITHIN REACH.
--- NOTE | 2018-10-17 04:02 | NUR ---
PT RESTING WITH EYES CLOSED. RESP EVEN AND REGULAR. SR UP X2, CALL LIGHT WITHIN REACH.
[2018-10-17 04:30] VITALS: BP 182/95
[2018-10-17 05:21] LABS: HEMATOCRIT 33.1 % (42.0-54.0); HEMOGLOBIN 11.3 g/dL (13.5-17.5); MCH 29.1 pg (26.0-34.0); MCHC 34.1 g/dL (31.0-37.0); MCV 85.3 fL (80.0-100.0); MEAN PLATELET VOLUME 10.9 fL (7.4-10.4); PLATELET COUNT 364 10x3/uL (130-400); RBC 3.88 10x6/uL (4.20-6.10); RDW 13.5 % (11.5-14.5); WBC 14.4 10x3/uL (4.8-10.8)
[2018-10-17 05:26] LABS: ANION GAP 11.2 mmol/L (8-16); CALCIUM 8.1 mg/dL (8.5-10.1); CARBON DIOXIDE 25.8 mmol/L (21.0-32.0); CREATININE - SERUM 1.3 mg/dL (0.6-1.3)
[2018-10-17 05:43] LABS: EOSINOPHILS 2 % (0-7); LYMPHOCYTES 11 % (15-50); MONOCYTES 6 % (2-11); NEUTROPHILS 71 % (40-80); PLATELET ESTIMATE NORMAL
--- NOTE | 2018-10-17 06:26 | NUR ---
AM BP 182/95. PT REFUSES IV APRESOLINE. AM FSBS 213. 4 UNITS REG INSULIN GIVEN SUB-Q TO UPPER R ARM. NEEDS MET; WILL CONTINUE TO MONITOR.
--- NOTE | 2018-10-17 07:08 | NUR ---
PATIENT LYING ON RIGHT SIDE, RESTING PEACEFULLY. DID NOT WAKE I ENTERED, DID NOT FURTHER DISTURB AT THIS TIME. BREATHS EVEN/REGULAR/UNLABORED. NO S/S OF DISTRESS NOTED AT THIS TIME. NO FAMILY PRESENT. CL IN REACH, SRX2.
--- NOTE | 2018-10-17 10:40 | NUR ---
PT WAS WALKING WITH PHYSTICAL THERAPY WHEN HE STARTED TO HAVE A B.M WHUILE MOVING. PT HAD LARGE AMOUNTS OF STOOL ALL OVER THE FLOOR. CLEANED UP, WALKED BACK TO ROOM, PT HAS HAD A SHOWER AND BEEN CLEANED UP FROM SMITHA ACCIDENT. HOLDING [id number] FOR NOW, PTS (K) IS 5.0. PT STATES HE ISN'T REALLY FEELING WELL, BUT IS NON-SPECIFIC WHEN I ASKED HIM EXACTLY HOW. IS NOT PRESENT AT THIS TIME. CL IN REACH, SRX2.
--- NOTE | 2018-10-17 12:36 | NUR ---
I have reviewed this patient and I concur with the Shift Assessment completed by the Licensed Practical Nurse today this shift.
--- NOTE | 2018-10-17 13:42 | NUR ---
SPOKE WITH PT AND HIS , EXPLAINED WHY HE WOULD LIKELY BE STAYING ANOTHER NIGHT PER MALICK DOMINGUEZ NOTES AT THIS TIME, AND WHY HE WAS GETTING A CHEST XRAY AMOUNG OTHER THINGS. STATED "NO ABSOLUTELY NOT" AND STATED THAT THEY WANTED TO LEAVE AND WOULD NOT BE STAYING ANOTHER NIGHT. SPOKE WITH RICKI TERESA AND SHE STATED TO LET THEM SPEAK WITH DR BORJAS WHEN HE ROUNDED IN A LITTLE BIT. INFORMED THE PT AND HIS , THEY ARE FRUSTRATED BECAUSE THEY BELIEVE DR. BORJAS WILL BE ROUNDING VERY LATE. I INFORMED THE PT THAT WHILE DR BORJAS DOES TYPICALLY ROUND A LITTLE LATER, HE DOES ALLWAYS MAKE TIME TO SEE HIS PATIENTS AND HE WOULD DEFFINITLEY BE SEEING THEM SOMETIME TODAY. PT/ ARE OK FOR NOW, BUT STILL VERY FRUSTRATED.
[2018-10-17 14:17] LABS: ALBUMIN 1.8 g/dL (3.4-5.0); BILIRUBIN - TOTAL 0.44 mg/dL (0.2-1.3); PROTEIN - SERUM 5.6 g/dL (6.4-8.2)
--- NOTE | 2018-10-17 17:46 | NUR ---
PT RESTING PEACEFULLY. AT BEDSIDE. STATED THEYRE TRYING TO CALL DR PIMENTEL, UNSURE WHY. NO COMPLAINTS/CONCERNS/QUESTIONS AT THIS TIME. CL IN REACH, SRX2.
[2018-10-17 18:31] VITALS: BP 172/82
[2018-10-17 20:00] VITALS: BP 151/91
--- NOTE | 2018-10-17 21:28 | NUR ---
INITIAL ROUNDS COMPLETED AT 1910 HRS. PT DENIED ANY DISCOMFORT OR SOB. AT BEDSIDE. ASSESMENT COMPLETED AT 1935HRS. VSS. PT ALERT AND ORIENTED TO PERSON, PLACE AND TIME. GOMEZ. LUNGS DIMINISHED IN BASES BILAT.HEART TONES S1 S2. ABD TENDER WITH ACTIVE BS NOTED. IV TO LFA SL. SPOKE WITH PT AND REGARDING MEANING OR LAB RESULTS AND CXR. BOTH STATED UNDERSTANDING. PM FSBS 168. 2 UNITS REG INSULIN GIVEN SUB-Q TO UPPER R ARM. PT DECLINED PM SNACK. PT CURRENTLY RESTING WITH EYES CLOSED. RESP EVEN AND REGULAR. SR UP X2,CALL LIGHT WITHIN REACH.
[2018-10-18] VITALS: BP 170/82
--- NOTE | 2018-10-18 00:20 | NUR ---
PT AWAKE; DENIES ANY DISCOMFORT. SR UP X2, CALL LIGHT WITHIN REACH.
[2018-10-18 01:43] LABS: APPEARANCE CLEAR (CLEAR); BILIRUBIN NEGATIVE (NEGATIVE); COLOR YELLOW (YELLOW); GLUCOSE 100 mg/dL (NEGATIVE); KETONE NEGATIVE (NEGATIVE); NITRITE NEGATIVE (NEGATIVE); PROTEIN 1+ mg/dL (NEGATIVE); UROBILINOGEN NORMAL (NORMAL)
[2018-10-18 01:46] LABS: BACTERIA FEW /hpf (NONE SEEN); EPITHELIAL CELLS 0-5 /hpf (0-5); RED CELLS - URINE 0-5 /hpf (0-5); WHITE CELLS - URINE 0-5 /hpf (0-5); YEAST <1+ /hpf (NONE SEEN)
--- NOTE | 2018-10-18 02:29 | NUR ---
PT RESTING WITH EYES CLOSED. RESP EVEN AND REGULAR. SR UP X2, CALL LIGHT WITHIN REACH.
--- NOTE | 2018-10-18 03:40 | NUR ---
PT RESTING WITH EYES CLOSED. RESP EVEN AND REGULAR. SR UP X2, CALL LIGHT WITHIN REACH.
[2018-10-18 04:30] VITALS: BP 154/87
--- NOTE | 2018-10-18 06:08 | NUR ---
VSS THROUGHOUT NIGHT. PT DENIED ANY DISCOMFORT. AM SHOWER DONE; BED LINENS CHANGED. AM FSBS 166. 2 UNITS REG INSULIN GIVEN SUB-Q TO UPPER R ARM. NEEDS MET; WILL CONTINUE TO MONITOR.
[2018-10-18 06:45] LABS: BASOPHILS 0.1 % (0-2); EOSINOPHILS 2.7 % (0-7); HEMATOCRIT 34.3 % (42.0-54.0); HEMOGLOBIN 11.6 g/dL (13.5-17.5); IMMATURE GRANULOCYTES 2.5 % (0-5); LYMPHOCYTES 6.9 % (15-50); MCHC 33.8 g/dL (31.0-37.0); MCV 85.8 fL (80.0-100.0); MEAN PLATELET VOLUME 10.8 fL (7.4-10.4); MONOCYTES 13.7 % (2-11); NEUTROPHILS 74.1 % (40-80); PLATELET COUNT 434 10x3/uL (130-400); RDW 13.6 % (11.5-14.5); WBC 15.3 10x3/uL (4.8-10.8)
[2018-10-18 06:50] LABS: ANION GAP 12.7 mmol/L (8-16); CALCIUM 8.3 mg/dL (8.5-10.1); CARBON DIOXIDE 26.8 mmol/L (21.0-32.0); CREATININE - SERUM 1.4 mg/dL (0.6-1.3)
[2018-10-18 06:51] LABS: POTASSIUM - SERUM 3.5 mmol/L (3.5-5.1)
--- NOTE | 2018-10-18 07:13 | NUR ---
REPORT RECIEVED. WILL CONTINUE WITH POC. PT CURRENTLY LYING SEMI FOWLERS. CALL LIGHT W/I REACH. PT IS AAO AND UP WITH ASSIST. AT BEDSIDE. RR EVEN AND UNLABORED ON 2L 02. L.FOR PIV IS SALINE LOCKED. NO S/S OF DISTRESS NOTED. PT DENIES ANY NEEDS AT THIS TIME. WILL CTM.
[2018-10-18 08:55] VITALS: BP 144/67
--- NOTE | 2018-10-18 09:53 | NUR ---
Nutrition follow-up: RDN visited with pt and during breakfast. Pt states he gets very tired will eating and prefers to drink supplements. Pt is trying to drink at least 3 supplements/day. Labs reivewed WT: 185# RDN advised pt to continue to eat as much as possible at meals and then drink a supplement. RDN will order Boost with meals due to pt likes if best. RDN following.
--- NOTE | 2018-10-18 13:44 | NUR ---
I have reviewed this patient and I concur with the Shift Assessment completed by the Licensed Practical Nurse today this shift.
[2018-10-18 18:15] VITALS: BP 142/64
[2018-10-18 20:00] VITALS: BP 155/74
--- NOTE | 2018-10-18 20:12 | NUR ---
EVENING ROUNDS COMPLETED. VSS, AAOX3, NO S/S OF DISTRESS. FOUND PT IN BATHROOM. PT HAD A BM ACCIDENT. PROVIDED PT WITH CLEAN LINEN AND CLEANED PT UP.NOTIFIED PT THAT I AND MY ORIENTEE WILL PERFORM A BLADDER SCAN ON HIM AND PUT IN A ADLER IF NEED BE. PT VOICED UNDERSTANDING.
--- NOTE | 2018-10-18 20:20 | NUR ---
PERFORMED BLADDER SCAN PT HAD 999+ RETENTION. RN, MENG PUT IN ADLER CATH, 16F, WITH LITTLE RESISTANCE. PT TOLERATE WELL. INITIAL OUTPUT IS 1350CCS. CLAMPED AT THIS TIME. RESIDUAL SCANNED AT 450. WATER PROVIDED PER PT REQUEST. WILL UNCLAMP ADLER IN 45MIN TO DRAIN THE REST OF THE URINE. URINE AT THIS TIME APPEARS CONC. PT DENIES ANY FURTHER NEEDS FOR COMFORT CARE. STATES HE FEELS A LOT BETTER IN HIS LOWER ABD. WILL CTM.
--- NOTE | 2018-10-18 22:45 | NUR ---
REASSES OUTPUT. PT HAS ALSO PUT OUT 400CC'S OF BLOODY DRAINAGE. WILL NOTYIFY AIRCRAFT POWERPLANT REPAIRER IF BLOODY DRAINAGE PERSIST. PT IN BED AT THIS TIME. DENIES ANY NEED FOR PAIN.
--- NOTE | 2018-10-19 02:45 | NUR ---
PT STILL HAVING A BLOODY DRAINAGE IN ADLER. CALLED AND NOTIFY RICKI VALENCIA. HE STATES HE STATES IT WAS EXPECTED. HE ALSO STATES TO LEAVE THE ADLER DRAINAING TO GRAVITY, AND PT WILL BE EVEALUATED BY DOCTOR IN AM. PT PAIN AT THIS MINIMAL AMOUNT OF BLOOD AROUND ADLER INSERTION SITE. WILL CTM.
[2018-10-19 04:00] VITALS: BP 140/63
[2018-10-19 05:18] LABS: BASOPHILS 0.2 % (0-2); EOSINOPHILS 4.3 % (0-7); HEMATOCRIT 30.4 % (42.0-54.0); HEMOGLOBIN 10.4 g/dL (13.5-17.5); IMMATURE GRANULOCYTES 1.3 % (0-5); LYMPHOCYTES 4.8 % (15-50); MCH 29.1 pg (26.0-34.0); MCHC 34.2 g/dL (31.0-37.0); MCV 84.9 fL (80.0-100.0); MEAN PLATELET VOLUME 10.3 fL (7.4-10.4); MONOCYTES 9.5 % (2-11); NEUTROPHILS 79.9 % (40-80); PLATELET COUNT 404 10x3/uL (130-400); RBC 3.58 10x6/uL (4.20-6.10); RDW 13.8 % (11.5-14.5); WBC 16.6 10x3/uL (4.8-10.8)
[2018-10-19 05:35] LABS: ANION GAP 12.4 mmol/L (8-16); CALCIUM 7.8 mg/dL (8.5-10.1); CARBON DIOXIDE 27.4 mmol/L (21.0-32.0); CREATININE - SERUM 1.4 mg/dL (0.6-1.3); PHOSPHOROUS 3.1 mg/dL (2.5-4.9); POTASSIUM - SERUM 3.8 mmol/L (3.5-5.1)
--- NOTE | 2018-10-19 07:10 | NUR ---
REPORT RECEIVED FROM DROP WIRE HANGER AND PATIENT CARE ASSUMED. PATIENT IS LAYING IN BED WITH EYES CLOSED AND BREATHING EVENLY.PATIENT AWAKENED EASILY TO VOICE. PATIENT DENIES ANY NEEDS OR PAIN. WILL CONTINUE TO MONITOR. SR UP X 2 BED IN LOW POSITION AND CALL LIGHT IN REACH.
[2018-10-19 08:52] VITALS: BP 144/70
--- NOTE | 2018-10-19 11:10 | NUR ---
ASSESSMENT COMPLETED. AT BS. PATIENT AND ASKING WHEN DR CHADWICK WILL BE IN ROOM. INFORMED THAT SHE WILL BE HERE AND I WILL BE SURE AND LET HER KNOW WHEN SHE ARRIVES. PATIENT AND DENIE ANY OTHER NEEDS. PATIENT IS STABLE AND UNCHANGED. SR UP X 2 BED IN LOW POSITION AND CALL LIGHT IN REACH.
[2018-10-19 13:56] VITALS: BP 136/70
--- NOTE | 2018-10-19 14:00 | NUR ---
PATIENT HAS HAD TWO LOSSE, LIQIUD STOOLS. PATIENT CLEANED, BUTTPASTE APPLIED . PATIENT IS STABLE AND DENIES ANY NEEDS OR PAIN. WILL CONTINUE TO MONTR.
--- NOTE | 2018-10-19 19:49 | NUR ---
EVENING ROUNDS COMPLETED. PT WAS LAYING IN BED. AAOX4. PT DENIES ANY PAIN AT THIS TIME. TEACHING ON I/S COMPLETE. ASSISTED PT TO CHAIR, CL IN REACH. NO FURTHER NEEDS VOICED AT THIS TIME. WILL CTM.
[2018-10-19 20:00] VITALS: BP 148/65
--- NOTE | 2018-10-20 00:30 | NUR ---
ENTERED PT ROOM. PT COMPLAINING OF INDIGESTION, AND BELCHING. PT WAS GRASPING AT CHEST. PERFORMED EKG, NORMAL SINUS. PT BEGAN COMPLAINING OF PHLEM AND BEGAN TO COUGH. HANDED PT TISSUE AND PT COUGHED UP BRIGHT RED COLORED PHLEM. BP 130/64, HR 74, O2 SAT 96%. CALLED RICKI VALENCIA, ORDERED A PRO BNP, AND CXR. WILL CTM.
[2018-10-20 04:00] VITALS: BP 110/53
[2018-10-20 05:20] LABS: BASOPHILS 0.1 % (0-2); EOSINOPHILS 2.2 % (0-7); HEMATOCRIT 29.5 % (42.0-54.0); HEMOGLOBIN 9.9 g/dL (13.5-17.5); IMMATURE GRANULOCYTES 1.4 % (0-5); LYMPHOCYTES 6.5 % (15-50); MCHC 33.6 g/dL (31.0-37.0); MCV 86.5 fL (80.0-100.0); MEAN PLATELET VOLUME 10.5 fL (7.4-10.4); MONOCYTES 8.1 % (2-11); NEUTROPHILS 81.7 % (40-80); PLATELET COUNT 446 10x3/uL (130-400); RBC 3.41 10x6/uL (4.20-6.10); WBC 17.4 10x3/uL (4.8-10.8)
[2018-10-20 05:38] LABS: ALBUMIN 1.6 g/dL (3.4-5.0); ALKALINE PHOSPHATASE 71 U/L (46-116); ALT (SGPT) 29 U/L (10-68); AMYLASE - SERUM 96 U/L (25-115); BILIRUBIN - INDIRECT 0.21 mg/dL (0.00-1.00); BILIRUBIN - TOTAL 0.31 mg/dL (0.2-1.3); CALC OSMOLALITY 286 mosm/kg (275-300); CALCIUM 7.8 mg/dL (8.5-10.1); CARBON DIOXIDE 29.8 mmol/L (21.0-32.0); CHLORIDE - SERUM 104 mmol/L (98-107); CREATININE - SERUM 0.9 mg/dL (0.6-1.3); GLUCOSE 175 mg/dL (74-106); LIPASE 469 U/L (73-393); MAGNESIUM - SERUM 1.7 mg/dL (1.8-2.4); PHOSPHOROUS 2.9 mg/dL (2.5-4.9); POTASSIUM - SERUM 3.5 mmol/L (3.5-5.1); PRO BNP 258 pg/mL (0-450); PROTEIN - SERUM 5.2 g/dL (6.4-8.2); SODIUM 140 mmol/L (136-145); UREA NITROGEN 23 mg/dL (7-18); eGFR NON AFRICAN AMERICAN 84 mL/min (90-120)
--- NOTE | 2018-10-20 06:41 | NUR ---
PT HAS A MAJOR DECREASE IN OUTPUT. BLADDER SCAN DONE AND IT SHOWED +999 PT ADLER HAS BLOODY URINE NOTED TOWARD PENIS. POSSIBLE CLOT. ATTEMPTED FLUSHING ADLER. NO FURTHER OUTPUT. LILO VALENCIA APN.
--- NOTE | 2018-10-20 06:49 | NUR ---
SPOKE WITH ANNIE ROBISON AND OBTAINED AN ORDER TO CONSULT DR TANG FOR URINARY RETENT AND HYDRONEPHROSIS
--- NOTE | 2018-10-20 07:32 | NUR ---
PAGED DR TANG REGARDING CONSULT. DR. TANG STATED TO TEXT HIM. PASSED TO JAMES DAY SHIFT NURSE. JAMES WILL TEXT INFO
[2018-10-20 08:40] VITALS: BP 153/72
--- NOTE | 2018-10-20 08:45 | NUR ---
TEXTED DR TANG WITH PATIENTS URGENT SITUATION. ADLER IS NOT DRAINING. AFTER USING A TOOMI SYRINGE, FLUSHED LINE WITH TWO SETS OF 20 ML NORMAL SALINE. PULLED BACK 30 ML BLOODY URINE AND TWO BLOOD CLOTS. FLOEY STILL IS NOT DRAINING. WILL CONTINUE TO MONITOR CLOESLY. HAVE GOTTEN 50 ML OUT AFTER ATTEMPTING TO FLUSH AND PULL BACK WITH TOOMI SYRINGE 3 TIMES SINCE ARRIVAL TO THE FLOOR AT 0730, 0800 AND 0835
--- NOTE | 2018-10-20 09:11 | NUR ---
PATIENT IS NOW NPO, DISCONTINUEING HIS ADLER ORDERED BY DR TANG. DR TANG WILL PLACE A FLOEY UNDER SEDATION THIS AFTERNOON. PATIENT DID NOT EAT BREAKFAST. HE IS ALSO NOW ON CONTACT ISOLATION.
--- NOTE | 2018-10-20 09:26 | NUR ---
Nutrition follow-up: Diet: ADA consistent CHO with po intake ~60% average of last 9 meals Pt is now NPO for gomez placement under anestheia Labs reviewed Wt: 184# +BM Pt in contact isolation RDN following.
--- NOTE | 2018-10-20 10:23 | NUR ---
REMOVED ADLER CATHETER PER DR TANG VERBAL ORDER. CONSENTS HAVE BEEN SIGNED FOR DR TANG. DEFLATED THE BALLOON AND REMOVED 9ML STERILE WATER AND ADLER CAME OUR EASILY AND AT NO DISCOMFORT TO THE PATIENT.
--- NOTE | 2018-10-20 10:58 | NUR ---
I WAS TOLD TO PREOP, HOWEVER THERE ARE NO PREOP MEDICATIONS. CALLED SURGERY AND THEY SAID THEY WOULD ADD SOME.
--- NOTE | 2018-10-20 11:23 | NUR ---
GIVING PREOP MEDICAIONS NOW. PATIENT IS NPO AND HAS NOT HAD ANYTHING TO EAT ON MY SHIFT OR LAST NIGHT AFTER MIDNIGHT TO MY KNOWLEDGE. EKG IS IN CHART. IV IN LEFT FOREARM IS FLUSHING WELL. ADLER CATHETER HAS BEEN REMOVED PER DR ORDERS. PATIENT IS RESTING QUIETLY AT THIS ITME.
[2018-10-20 12:27] VITALS: BP 154/68
--- NOTE | 2018-10-20 13:54 | NUR ---
STILL WAITING FOR SURGERY. PATIENT HAS BEEN PREOPED FOR OVER AN HOUR. HE IS NPO AND RESTING WITH HIS EYES CLOSED. AT BEDSIDE.
[2018-10-20 16:00] VITALS: BP 157/73
--- NOTE | 2018-10-20 16:27 | NUR ---
PATIENT IS GOING TO SURGERY AT THIS TIME.
--- NOTE | 2018-10-20 17:23 | NUR ---
PATIENT HAS RETURNED FROM SURGERY. HE IS MUCH MORE COMFORTABLE NOW THAT HIS BLADDER IS DRAINED. HE HAS A ADLER PLACED BY DR TANG. PATIENT IS ALERT AND ORIENTED.
--- NOTE | 2018-10-20 19:30 | NUR ---
EVENING ROUNDS MADE. PT SITTING UP IN BED RESTING. AT BEDSIDE. DENIES PAIN AT THIS TIME. DENIES FURTHER CONCERNS. CONTACT PRECAUTIONS TAKEN. NO FURTHER CONCERNS AT THIS TIME. BED LOWERED AND LOCKED. CL IN REACH. WILL CTM.
[2018-10-20 20:00] VITALS: BP 148/64
--- NOTE | 2018-10-20 21:18 | NUR ---
VITALS STABLE. PT TOOK MEDS WITHOUT DIFFICULTY. MAG 1.7, REPLACED PER ELECTROLYTE PROTOCOL. UA COLLECTED VIA ADLER, URINE BRIGHT RED, NO CLOTS NOTED. BS TREATED PER SLIDING SCALE. PT RESTING NOW COMFORTABLY WITH CPAP ON. BREATHING EVEN AND UNLABORED. DENIES PAIN AT THIS TIME. BED LOWERED AND LOCKED. CL IN REACH. WILL CTM.
--- NOTE | 2018-10-21 00:41 | NUR ---
I have reviewed this patient and I concur with the Shift Assessment completed by the Licensed Practical Nurse today this shift.
[2018-10-21 04:30] VITALS: BP 119/59
[2018-10-21 06:02] LABS: BASOPHILS 0.2 % (0-2); EOSINOPHILS 3.2 % (0-7); HEMOGLOBIN 8.9 g/dL (13.5-17.5); IMMATURE GRANULOCYTES 0.8 % (0-5); LYMPHOCYTES 10.4 % (15-50); MCH 28.3 pg (26.0-34.0); MEAN PLATELET VOLUME 10.1 fL (7.4-10.4); MONOCYTES 8.7 % (2-11); NEUTROPHILS 76.7 % (40-80); PLATELET COUNT 459 10x3/uL (130-400); RBC 3.14 10x6/uL (4.20-6.10); WBC 13.3 10x3/uL (4.8-10.8)
[2018-10-21 06:31] LABS: % SATURATION 13 % (15-55); IRON 15 ug/dl (35-150); TOTAL IRON BIND CAPACITY 115 ug/dl (260-445); UNSAT IRON BIND CAPACITY 100 ug/dl (150-375)
[2018-10-21 06:40] LABS: AMYLASE - SERUM 92 U/L (25-115); LIPASE 436 U/L (73-393)
[2018-10-21 06:57] LABS: CALC OSMOLALITY 285 mosm/kg (275-300); CALCIUM 7.7 mg/dL (8.5-10.1); CARBON DIOXIDE 30.2 mmol/L (21.0-32.0); CHLORIDE - SERUM 105 mmol/L (98-107); GLUCOSE 154 mg/dL (74-106); LDH 212 U/L (85-227); MAGNESIUM - SERUM 1.7 mg/dL (1.8-2.4); PHOSPHOROUS 3.1 mg/dL (2.5-4.9); POTASSIUM - SERUM 3.5 mmol/L (3.5-5.1); SODIUM 140 mmol/L (136-145); UREA NITROGEN 25 mg/dL (7-18); eGFR NON AFRICAN AMERICAN 75 mL/min (90-120)
[2018-10-21 07:32] LABS: FERRITIN 486 ng/mL (3-244)
--- NOTE | 2018-10-21 08:29 | OP ---
PATIENT NAME: TYLER GIBBS MEDICAL RECORD: [id number] :[birth year] LOCATION:D.M2 D.2102 ADMISSION DATE:10/10/18 SURGEON: EDUIN TANG MD DATE OF OPERATION: 10/20/2018 SURGEON: Eduin Tang MD ANESTHESIA: TIVA by Eduin Bruner MD DIAGNOSES: Urinary retention, obstructive, BPH, and prostatic urethral injury. PROCEDURES: Cystoscopy, bladder clot evacuation, and Santana catheter insertion over a guidewire. FINDINGS: Prostatic urethral injury and obstructive prostatic lateral lobes. Blood clots in the bladder with a heavily trabeculated bladder with cellules. SPECIMENS: Bladder urine for culture. BLOOD LOSS: None. CLINICAL HISTORY: This is an 88-year-old male who was admitted to hospital with gallstone pancreatitis. He is post-cholecystectomy. He also has developed diarrhea and his C. difficile antigen is positive. On CT scan, he was found to have pancreatic inflammation and bilateral hydronephrosis with a distended bladder. Attempts by the floor nurse to place a Santana catheter yesterday were unsuccessful. He has lot of urethral bleeding now and the Santana catheter is not draining. When the bladder was scanned, the postvoid residual is over one liter. He comes to have cystoscopy and insertion of a Santana catheter over a guidewire due to presumed urethral injury from having the Santana catheter balloon blown up in the prostatic or penile urethra. He is already on meropenem on the floor and no further antibiotics were given to him here. DESCRIPTION OF PROCEDURE: The patient was given IV sedation. He was then placed into lithotomy position and prepped and draped. A 21-Hebrew cystoscope with a 30-degree lens was used for visualization. The penile urethra shows no strictures. The prostatic urethra shows signs of injury and a false passage from the Santana catheter balloon having been blown up in the prostatic urethra. Going into the prostate, there were obstructive lateral lobes. He had large numbers of blood clots in the bladder. Through the cystoscope sheath and using an Seawind evacuator, I managed to get all the clots out. Then, through the cystoscope, we inserted a Sensor wire into the bladder. Once the wire was in place, the cystoscope was removed, leaving the wire in place. Over the wire, we inserted a 16-Hebrew hopland tip Santana catheter. Once the catheter was in the bladder fully, then the balloon was inflated with 10 cc of sterile water. The wire was then removed and the catheter was put to bag drainage. TRANSINT:[id number] Voice Confirmation ID: [id number] DOCUMENT ID: [id number] OPERATIVE REPORT [id number] TYLER GIBBS, EDUIN Moya MD at 0829 CC: [id number] DICTATION DATE: 10/20/181711 SALES APPOINTMENT COORDINATOR: 10/20/182032 ADM IN [facility] [address] [id number]
[2018-10-21 08:32] VITALS: BP 120/67
[2018-10-21 11:50] VITALS: BP 125/70
[2018-10-21 15:26] VITALS: BP 130/61
--- NOTE | 2018-10-21 19:19 | NUR ---
EVENING ROUNDS MADE. PT SITTING UP IN BED RESTING. AT BEDSIDE. DENIES PAIN AT THIS TIME. BREATHING EVEN AND UNLABORED. DENIES FURTHER NEEDS AT THIS TIME. ENTERIC PRECAUTIONS TAKEN. FALL PRECAUTIONS IN PLACE. BED LOWERED AND LOCKED. CL IN REACH. WILL CTM.
[2018-10-21 20:00] VITALS: BP 149/66
--- NOTE | 2018-10-21 21:19 | NUR ---
VITALS STABLE. PT TOOK MEDS WITHOUT DIFFICULTY. DENIES PAIN AT THIS TIME. BS 150, NO TREATMENT NEEDED. ADLER DRAINING BY GRAVITY, BRIGHT RED URINE NOTED, STAT LOCK IN PLACE. BREATHING EVEN AND UNLABORED. DENIES FURTHER NEEDS AT THIS TIME. ENTERIC PRECAUTIONS TAKEN. BED LOWERED AND LOCKED. CL IN REACH. WILL CTM.
[2018-10-22] VITALS (28 sets, daily range): BP systolic 78–145; BP diastolic 47–73
[2018-10-22 04:30] LABS: BASOPHILS 0.1 % (0-2); EOSINOPHILS 2.2 % (0-7); HEMATOCRIT 21.6 % (42.0-54.0); IMMATURE GRANULOCYTES 0.9 % (0-5); LYMPHOCYTES 9.9 % (15-50); MCHC 33.3 g/dL (31.0-37.0); MCV 87.1 fL (80.0-100.0); MEAN PLATELET VOLUME 9.9 fL (7.4-10.4); MONOCYTES 9.3 % (2-11); NEUTROPHILS 77.6 % (40-80); RDW 14.2 % (11.5-14.5); WBC 11.8 10x3/uL (4.8-10.8)
[2018-10-22 04:35] LABS: CALC OSMOLALITY 287 mosm/kg (275-300); CALCIUM 7.2 mg/dL (8.5-10.1); CARBON DIOXIDE 28.8 mmol/L (21.0-32.0); CHLORIDE - SERUM 107 mmol/L (98-107); CREATININE - SERUM 0.9 mg/dL (0.6-1.3); GLUCOSE 199 mg/dL (74-106); MAGNESIUM - SERUM 1.5 mg/dL (1.8-2.4); PHOSPHOROUS 2.8 mg/dL (2.5-4.9); POTASSIUM - SERUM 3.4 mmol/L (3.5-5.1); RBC 2.48 10x6/uL (4.20-6.10); SODIUM 140 mmol/L (136-145); UREA NITROGEN 21 mg/dL (7-18); eGFR NON AFRICAN AMERICAN 84 mL/min (90-120)
[2018-10-22 04:36] LABS: HEMOGLOBIN 7.2 g/dL (13.5-17.5); PLATELET COUNT 356 10x3/uL (130-400)
--- NOTE | 2018-10-22 05:01 | NUR ---
PT HGB THIS AM 7.2, PAGED ANNIE ROBISON, ORDERS GIVEN TO TRANSFUSE 1 UNIT PRBC, CHECK H&H Q6HR, AND CHECK OCCULT STOOL. NO FURTHER ORDERS GIVEN.
--- NOTE | 2018-10-22 05:03 | NUR ---
PAGED VOISE TO INFORM HIM THAT PT WILL BE RECEIVING 1 UNIT PRBC FOR HGB 7.2 BEFORE EGD, AWAITING CALL BACK.
--- NOTE | 2018-10-22 05:28 | NUR ---
NEW EKG ON CHART, NORMAL SINUS,
--- NOTE | 2018-10-22 06:08 | NUR ---
I have reviewed this patient and I concur with the Shift Assessment completed by the Licensed Practical Nurse today this shift.
--- NOTE | 2018-10-22 07:47 | NUR ---
JUST CALLED GI LAB TO CHECK ON PATIENTS PROGRESS BECAUSE HE HAS 2 UNITS OF BLOOD ORDERED AND I WANTED TO SEE IF THEY WANTED TO GIVE THE BLOOD IN THE GI LAB. HE WAS BROUGHT TO OR, AND THEN HE SHOULD RETURN TO GI LAB. I WILL BE WAITING FOR AN UPDATE. GI LAB INFORMED ME THAT HE WILL MOST LIKELY RECIEVE BLOOD WHEN HE RETURNS.
--- NOTE | 2018-10-22 07:51 | NUR ---
PATIENT IS IN SURGERY AT THIS TIME.
--- NOTE | 2018-10-22 08:01 | NUR ---
PATIENT IS GOING TO BE TRANSFERED TO ICU AFTER SURGERY.
--- NOTE | 2018-10-22 09:07 | NUR ---
0725 DUE TO EXTENSIVE BLOOD CLOTS AND BLEEDING, TRANSFERRED PATIENT TO OR4 FOR INTUBATION FOR AIRWAY CONTROL.
--- NOTE | 2018-10-22 09:15 | NUR ---
0830 PATIENT RECIEVED 3 UNITS PRBC'S IN OR AND THE 4TH WILL BE GIVEN IN PACU. REPORT GIVEN TO JOSELINE BUCHANAN RN.
--- NOTE | 2018-10-22 09:44 | NUR ---
PT TO 2305 VSS HR 73 BP 146/78 O2 SAT 95% ON 2L NC NO FAMILY AT BEDSIDE OR WAITING AREA NOT ANSWERING PHONE WILL ATTEMPT AGAIN
--- NOTE | 2018-10-22 10:06 | NUR ---
COMPLETE BB LINEN CHANGE ADM. LARGE BM NOTED.
[2018-10-22 14:15] LABS: HEMATOCRIT 25.8 % (42.0-54.0)
[2018-10-22 14:17] LABS: HEMOGLOBIN 8.8 g/dL (13.5-17.5)
--- NOTE | 2018-10-22 15:00 | NUR ---
REPORT RECEIVED. ASSESSMENT COMPLETE PER FLOW SHEET. VSS. NO NEW CHANGES WILL CONTINUE TO MONITOR
[2018-10-22 17:41] LABS: HEMATOCRIT 24.3 % (42.0-54.0); HEMOGLOBIN 8.3 g/dL (13.5-17.5)
--- NOTE | 2018-10-22 17:58 | NUR ---
H&H REVIEWED. DR ROCK PAGED AWAITING CALL BACK.
--- NOTE | 2018-10-22 18:20 | NUR ---
DR ROCK PAGED WITH NO ANSWER
--- NOTE | 2018-10-22 18:44 | NUR ---
DR ALEJANDRA PAGED R/T NO ANSWER FROM DR ROCK
--- NOTE | 2018-10-22 18:53 | NUR ---
NO ANSWER PAGED THROUGH DR ALEJANDRA OFFICE AGAIN. AWAITING CALL BACK
--- NOTE | 2018-10-22 19:03 | NUR ---
DR LOREN BARNETT
--- NOTE | 2018-10-22 19:14 | NUR ---
DR PIMENTEL PAGED WITH NO ANSWER
--- NOTE | 2018-10-22 19:17 | NUR ---
DR ALEJANDRA CALLED BACK STATED I NEEDED TO GET IN TOUCH WITH GI AT THIS TIME, I STATED I HAVE PAGED VOISE TWICE WITH NO ANSWER AND I DO NOT HAVE HIS CELL PHONE, I ASKED IF HE HAD HIS CELL PHONE NUMBER HE STATED NO AT THIS TIME I ASKED WHAT I COULD DO FOR HIS BP 79/48 DR ALEJANDRA ORDERED 2 U PRBC
--- NOTE | 2018-10-22 19:18 | NUR ---
KEVIN SALEEM PAGED GIVEN UDPATE NO RETURN PHONE CALLS FROM PHYSICIANS. STATED OKAY.
--- NOTE | 2018-10-22 19:27 | NUR ---
DARBY GARCIA RN DAY SHIFT DID REACH DR ALEJANDRA AND RECEIVED ORDERS FOR TRANSFUSE 2 UNITS AND STILL REACH OUT TO DR ROCK
--- NOTE | 2018-10-22 19:29 | NUR ---
DR PIMENTEL CALLED BACK. STATED WAS NOT ON CASE ANY MORE. STATED TO REACH GI OR PCP OVER THE PHONE. HE SIGNED OFF OF PT CARE. IF PT NEEDED GI HE NEEDED TO BE TRANSFERED TO A DIFFERENT FACILITY
--- NOTE | 2018-10-22 19:30 | NUR ---
REPORT RECEIVED INITIAL ASSESSMENT COMPLETE. PER REPORT PTS B/P HAS BEEN TRENDING DOWN NOW IN 70'S WITH HEART RATE INCREASED AND HAS HAD MULTIPLE BLOODY STOOLS. ATTEMPTS TO REACH CODY ROBISON FOR PRIMARY CARE UNSUCCESSFUL AND UNABLE TO REACH DR ROCK GI PHYSICIAN. PT IS ORIENTED ALERT C/O LIGHTHEADED DIZZY FEELING AND BELCHING WITH DISCOMFORT IN UPPER GI AREA THAT HAS BEEN CONSTANT ALL DAY. PTS SON AT BEDSIDE VOICING CONCERNS OF PTS STATUS. INFORMED WILL CONTINUE TO PAGE AND GET SWITCH TENDER ON BOARD TO REACH OUT TO PHYSICANS.
--- NOTE | 2018-10-22 20:12 | NUR ---
CODY WITH PRIMARY CARE PAGED AGAIN
--- NOTE | 2018-10-22 20:13 | NUR ---
ATTEMPTS TO REACH DR ROCK CONTINUE TO BE UNSUCCESSFUL. PAGED VOISE OFFICE EXCHANGE AT [phone]
--- NOTE | 2018-10-22 20:14 | NUR ---
ATTEMPT VOISE VIA CELL NUMBER [id number]
--- NOTE | 2018-10-22 20:15 | NUR ---
.ATTEMPT TO REACH VOISE ON PERSONAL PAGER [phone]
--- NOTE | 2018-10-22 20:18 | NUR ---
STILL NO CONTACT WITH VOISE. 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 ATTEMPT TO PAGE VOISE THROUGH EXCHANGE AGAIN [phone]
--- NOTE | 2018-10-22 20:31 | NUR ---
ATTEMPTS TO REACH VOISE GI PHYSICIAN UNSUCCESSFUL PAGED THROUGH GI EXCHANGE AGAIN AT [phone]
--- NOTE | 2018-10-22 20:33 | NUR ---
VOICEMAIL LEFT PER Marilee CEDENO CHARGE NURSE TO DR ROCK CELL NUMBER [phone]
--- NOTE | 2018-10-22 20:34 | NUR ---
PTS SON WANTS PT TO BE TRANSFERRED TO FACILITY WITH GI WHO IS AVAILABLE
--- NOTE | 2018-10-22 21:00 | NUR ---
DR ALEJANDRA AT BEDSIDE SPEAKING WITH SON ABOUT TRANSFER
--- NOTE | 2018-10-22 21:14 | NUR ---
DR ALEJANDRA SPEAKING WITH DR ROCK VIA PHONE
--- NOTE | 2018-10-22 21:30 | NUR ---
AFTER SPEAKING WITH DR ROCK VIA PHONE DR ALEJANDRA AND SON DECIDED TO CANCEL TRANSFER AT THIS TIME
[2018-10-23] VITALS (24 sets, daily range): BP systolic 102–177; BP diastolic 59–92
[2018-10-23 04:36] LABS: BASOPHILS 0.1 % (0-2); EOSINOPHILS 0.4 % (0-7); HEMOGLOBIN 9.9 g/dL (13.5-17.5); IMMATURE GRANULOCYTES 0.9 % (0-5); LYMPHOCYTES 7.9 % (15-50); MCH 29.1 pg (26.0-34.0); MCHC 33.6 g/dL (31.0-37.0); MCV 86.8 fL (80.0-100.0); MEAN PLATELET VOLUME 10.6 fL (7.4-10.4); NEUTROPHILS 83.7 % (40-80); PLATELET COUNT 312 10x3/uL (130-400); RDW 14.5 % (11.5-14.5)
[2018-10-23 04:40] LABS: HEMATOCRIT 29.5 % (42.0-54.0); WBC 16.5 10x3/uL (4.8-10.8)
[2018-10-23 04:52] LABS: CALC OSMOLALITY 292 mosm/kg (275-300); CARBON DIOXIDE 27.5 mmol/L (21.0-32.0); CHLORIDE - SERUM 111 mmol/L (98-107); GLUCOSE 187 mg/dL (74-106); MAGNESIUM - SERUM 1.5 mg/dL (1.8-2.4); PHOSPHOROUS 3.2 mg/dL (2.5-4.9); SODIUM 143 mmol/L (136-145); UREA NITROGEN 22 mg/dL (7-18); eGFR NON AFRICAN AMERICAN 75 mL/min (90-120)
[2018-10-23 04:53] LABS: POTASSIUM - SERUM 4.2 mmol/L (3.5-5.1)
--- NOTE | 2018-10-23 07:00 | NUR ---
RECEIVED BEDSIDE REPORT ON PATIENT AND ASSUMED CARE OF PATIENT. PATIENT ALERT AND ORIENTED X 4, STATES FEELING MUCH BETTER THIS MORNING. IVS INFUSING NS AT 75 CC/HR AND PROTONIX AT 10 CC/HR TO RT WRIST WITH NO S/S OF INFILTRATION. VSS. HEAD TO TOE ASSESSMENT COMPLETED.
--- NOTE | 2018-10-23 07:30 | NUR ---
PATIENTS SON JACOB AT ROOM UPDATED AND QUESTIONS ANSWERED.
--- NOTE | 2018-10-23 07:45 | NUR ---
PATIENT GIVEN CLEAR LIQUID BREAKFAST TRAY.
--- NOTE | 2018-10-23 08:13 | NUR ---
DR. ALEJANDRA AT ROOM UPDATED AND SPEAKS WITH PATIENT AND FAMILY. EXPLAINS PLAN OF CARE AND ANSWERS QUESTIONS.
--- NOTE | 2018-10-23 09:50 | NUR ---
PATIENT RESTING QUIELTY WITH EYES CLOSED. VSS.
--- NOTE | 2018-10-23 10:11 | NUR ---
SCDS PLACED ON PATIENT. VSS.
--- NOTE | 2018-10-23 11:00 | NUR ---
REASSESSMENT COMPLETED. VSS. GIVEN INSULIN PER SLIDING SCALE.
--- NOTE | 2018-10-23 12:59 | NUR ---
PATIENT UP TO BEDSIDE CHAIR WITH STANDBY ASSIST ONLY. VSS.
--- NOTE | 2018-10-23 13:13 | NUR ---
PATIENT GIVEN ICENTIVE SPIROMETER AND INSTRUCTED ON USE. ABLE TO PULL 1500 ML.
--- NOTE | 2018-10-23 13:39 | NUR ---
PATIENT UP TO BEDSIDE COMMODE, HAS LARGE DARK STOOL LOOSE WITH BLOOD CLOTS NOTED.
--- NOTE | 2018-10-23 15:08 | NUR ---
REASSESSMENT COMPLETED. PATIENT UP IN BEDSIDE CHAIR. VSS.
--- NOTE | 2018-10-23 16:46 | NUR ---
PATIENT UP TO BEDSIDE COMMODE.
--- NOTE | 2018-10-23 17:02 | NUR ---
PATIENT BACK TO BED FROM BEDSIDE COMMODE. BM WITH BLOOD CLOTS DARK RED.
--- NOTE | 2018-10-23 18:12 | NUR ---
PATIENT PLACES SELF ON HOME CPAP MACHINE FOR SLEEP. VSS.
--- NOTE | 2018-10-23 19:00 | NUR ---
REPORT RECEIVED. INITIAL ASSESSMENT COMPLETED. PT RESTING QUIETLY WITH EYES CLOSED AWAKENS UPON ENTERING ROOM. ORIENTED FOLLOWS COMMANDS. STATES "I FEEL SO MUCH BETTER TONIGHT THEN LAST NIGHT" PT DENIES THE BELCHING PAIN STATES "IM NOT HURTING AT ALL NOW". RESP EVEN NONLABORED PT IS ON HIS HOME CPAP MACHINE BREATH SOUNDS CLEAR TO AUSCULTATE ENCOURAGED TO TCDB AND USE IS. O2 SAT 94% AT THIS TIME. PT ON CM READING SR WITHOUT ECTOPY AT THIS TIME ALARMS ON AND AUDIBLE. ABD SOFT NONTENDER WITH ACTIVE BS LAP INCISIONS FROM LAP CHOLEY CLEAN NO REDNESS OR DRAINAGE. ADLER PATENT DRAINING YELLOW URINE MUCH CLEARER THAN LAST PM. BED LOW POSITION SIDE RAILS UP TIMES 3 FOR SAFETY AND BED MOBILITY CALL LIGHT IN REACH
--- NOTE | 2018-10-23 20:00 | NUR ---
ANSWERED PTS CALL LIGHT HE STATED HE NEEDED BED TUCKER, BUT THEN STATES HE DIDNT MAKE IT COULD NOT HOLD IT. LARGE LIQUID MELENA STOOL COMPLETE CHG BED BATH AND COMPLETE LINEN CHANGE PT ABLE TO TURN SELF FOR LINEN CHANGE.
--- NOTE | 2018-10-23 23:00 | NUR ---
REASSESSMENT COMPLETE NO CHANGES PT RESTING COMFORTABLY WITH HOME CPAP. PTS O2 SAT DOES DECREASE TO MID 80'S WHEN SLEEPING SOUNDLY. O2 SAT 92% AT THIS TIME. DENIES PAIN VSS AT THIS TIME CPOC
[2018-10-24] VITALS (24 sets, daily range): BP systolic 119–170; BP diastolic 66–84
--- NOTE | 2018-10-24 03:00 | NUR ---
REASSESSMENT MADE NO CHANGES CPOC
[2018-10-24 03:54] LABS: BASOPHILS 0.2 % (0-2); EOSINOPHILS 2.8 % (0-7); HEMATOCRIT 25.4 % (42.0-54.0); HEMOGLOBIN 8.5 g/dL (13.5-17.5); IMMATURE GRANULOCYTES 0.8 % (0-5); LYMPHOCYTES 11.5 % (15-50); MCH 29.2 pg (26.0-34.0); MCHC 33.5 g/dL (31.0-37.0); MCV 87.3 fL (80.0-100.0); MONOCYTES 10.2 % (2-11); NEUTROPHILS 74.5 % (40-80); PLATELET COUNT 341 10x3/uL (130-400); RBC 2.91 10x6/uL (4.20-6.10); RDW 14.9 % (11.5-14.5)
[2018-10-24 03:55] LABS: WBC 10.3 10x3/uL (4.8-10.8)
[2018-10-24 03:56] LABS: CALC OSMOLALITY 281 mosm/kg (275-300); CALCIUM 7.1 mg/dL (8.5-10.1); CARBON DIOXIDE 27.8 mmol/L (21.0-32.0); CHLORIDE - SERUM 110 mmol/L (98-107); CREATININE - SERUM 0.8 mg/dL (0.6-1.3); GLUCOSE 77 mg/dL (74-106); SODIUM 141 mmol/L (136-145); UREA NITROGEN 19 mg/dL (7-18); eGFR NON AFRICAN AMERICAN > 90 mL/min (90-120)
[2018-10-24 03:57] LABS: POTASSIUM - SERUM 3.5 mmol/L (3.5-5.1)
--- NOTE | 2018-10-24 06:00 | NUR ---
ANSWERED PTS CALL LIGHT HE IS COLD WARM BLANKET GIVEN. VSS STILL NO PAIN AND STATES HE SLEPT WHICH HELPED
--- NOTE | 2018-10-24 07:00 | NUR ---
SHIFT ASSESSMENT COMPLETED. PT CARE ASSUMED. MONITORS ON AND WORKING. VITALS STABLE. PT AWAKE AND ALERT, CALL LIGHT WITHIN REACH, WILL CONTINUE TO OBSERVE. SEE FLOW SHEET FOR FURTHER DETAILS.
--- NOTE | 2018-10-24 09:00 | NUR ---
PT CLEANED FROM LARGE DARK BLOODY STOOL. PT ASSISTED INTO CHAIR AT BEDSIDE, EATING BREAKFAST, FAMILY AT BEDSIDE, UPDATE PROVIDED. CALL LIGHT WITHIN REACH, WILL CONTINUE TO OBSERVE.
--- NOTE | 2018-10-24 11:00 | NUR ---
NO CHANGES, MONITORS ON AND WORKING, VITALS STABLE. PT SITTING UP IN CHAIR EATING LUNCH, FAMILY AT BEDSIDE. UPDATE PROVIDED. SEE FLOW SHEET FOR FURTHER DETAILS. WILL CONTINUE TO OBSERVE.
--- NOTE | 2018-10-24 13:00 | NUR ---
PT LYING IN BED RESTING. MONITORS ON AND WORKING, VITALS STABLE. PT AWAKE AND ALERT, PT CLEANED FROM LARGE BLOODY STOOL. COMPLETE LINEN CHANGE DONE AT THIS TIME, CALL LIGHT WITHIN REACH, WILL CONTINUE TO OBSERVE.
--- NOTE | 2018-10-24 15:00 | NUR ---
NO CHANGES, MONITORS ON AND WORKING, VITALS STABLE. SEE FLOW SHEET FOR FURTHER DETAILS. WILL CONTINUE TO OBSERVE.
--- NOTE | 2018-10-24 17:00 | NUR ---
PT ASSISTED BACK INTO BED, MONITORS ON AND WORKING, VITALS STABLE. CALL LIGHT KARLA MARTIN, WILL CONTINUE TO OBSERVE.
[2018-10-24 17:42] LABS: HEMATOCRIT 32.3 % (42.0-54.0); HEMOGLOBIN 10.6 g/dL (13.5-17.5)
--- NOTE | 2018-10-24 19:30 | NUR ---
PT RECEIVED WITH EYES OPEN. FAMILY AT BEDSIDE. NO S/S OF DISTRESS. NO NEEDS MADE KNOWN. DENIES PAIN. CALL LIGHT IN REACH. WILL CONTINUE TO OBSERVE.
--- NOTE | 2018-10-24 21:45 | NUR ---
RECEIVED MEDICATIONS PER MAR, TOLERATED WELL. GLUCERNA GIVEN PER REQUEST, TOLERATED WELL. CALL [facility] IN REACH. WILL CONTINUE TO OBSERVE.
[2018-10-25] VITALS (14 sets, daily range): BP systolic 126–156; BP diastolic 66–85
--- NOTE | 2018-10-25 00:01 | NUR ---
REASSESSMENT COMPLETED, SEE FLOW SHEET. CALL LIGHT IN REACH. WILL CONTINUE TO OBSERVE.
--- NOTE | 2018-10-25 00:23 | NUR ---
PT ON BEDSIDE COMMODE, CALL LIGHT IN REACH. REASSESSMENT COMPLETED, SEE FLOW SHEET. WILL CONTINUE TO OBSERVE.
--- NOTE | 2018-10-25 01:16 | NUR ---
PT RESTING WITH EYES CLOSED AND CHEST RISING. USING HOME CPAP. NO S/S OF DISTRESS. CALL LIGHT IN REACH. WILL CONTINUE TO OBSERVE.
--- NOTE | 2018-10-25 03:45 | NUR ---
REASSESSMENT COMPLETED, SEE FLOW SHEET. WILL CONTINUE TO OBSERVE. CALL LIGHT IN REACH.
[2018-10-25 04:58] LABS: CALC OSMOLALITY 279 mosm/kg (275-300); CALCIUM 7.1 mg/dL (8.5-10.1); CARBON DIOXIDE 31.8 mmol/L (21.0-32.0); CHLORIDE - SERUM 103 mmol/L (98-107); CREATININE - SERUM 0.9 mg/dL (0.6-1.3); GLUCOSE 83 mg/dL (74-106); SODIUM 141 mmol/L (136-145); eGFR NON AFRICAN AMERICAN 84 mL/min (90-120)
[2018-10-25 05:17] LABS: BASOPHILS 0.3 % (0-2); EOSINOPHILS 2.9 % (0-7); HEMATOCRIT 30.3 % (42.0-54.0); HEMOGLOBIN 10.2 g/dL (13.5-17.5); IMMATURE GRANULOCYTES 0.7 % (0-5); MCH 29.4 pg (26.0-34.0); MCHC 33.7 g/dL (31.0-37.0); MCV 87.3 fL (80.0-100.0); MEAN PLATELET VOLUME 10.1 fL (7.4-10.4); MONOCYTES 9.6 % (2-11); NEUTROPHILS 78.5 % (40-80); RBC 3.47 10x6/uL (4.20-6.10); RDW 14.8 % (11.5-14.5); UREA NITROGEN 13 mg/dL (7-18); WBC 10.8 10x3/uL (4.8-10.8)
[2018-10-25 05:26] LABS: PLATELET COUNT 411 10x3/uL (130-400)
--- NOTE | 2018-10-25 06:47 | NUR ---
BATH GIVEN WITH COMPLETE LINEN CHANGE. POTASSIUM 3.0 AND TREATED PER ELECTOLYTE PROTCOL. NO OTHER NEEDS CONCERNS. CALL LIGHT IN REACH.
--- NOTE | 2018-10-25 08:27 | NUR ---
0700 PT RECIEVED ALERT AND OREINTED ON ROOM AIR VSS DENIES PAIN LHAND PIV WITH NS AND PROTONIX INFUSING, ABD LAP SITES WITH STERISTRIPS CDI, ADLER DRAINING YELLOW URINE, IN ISOLATION FOR CDT, 0830 AWAITING [facility] FROM PHARMACY, SPOKE WITH [place]
--- NOTE | 2018-10-25 10:03 | NUR ---
Nutrition follow-up: Diet: Regular PO intake ~50% average of last 6 meals Labs reviewed Wt: 184# RDN following.
--- NOTE | 2018-10-25 11:41 | NUR ---
CALLED AND SPOKE TO PHARMACY FOR INSULIN
--- NOTE | 2018-10-25 11:52 | NUR ---
1000 D[address]AN [address] AND ASSISTED TO CHAIR 1130 DR BORJAS STATED TO TRANSFER TO FLOOR, PAGED DR ROCK TO CONFIRM THIS IS OK [address] ROCK FOR H&H AND IF NO CHANGE OK TO TRANSFER
[2018-10-25 12:27] LABS: HEMATOCRIT 30.1 % (42.0-54.0); HEMOGLOBIN 10.2 g/dL (13.5-17.5)
--- NOTE | 2018-10-25 13:02 | NUR ---
H&H shows no change, ok to transfer, REPORT CALLED TO JAKOB, GOING TO ROOM 2226, FAMILY AT BEDSIDE AND AWARE
--- NOTE | 2018-10-25 13:31 | NUR ---
PATIENT ADMITTED TO ROOM 2226. ALERT AND ORIENTED. LUNGS CLEAR BILATERALLY IN ALL ERNANDEZ. HEART SOUNDS S1 AND S2 HEARD IN ALL ERNANDEZ. BOWEL SOUNDS ACTIVE X 4. SKIN INTACT WITHOUT REDNESS. DENIE PAIN. DENIES NEEDS. BED LOW. CALL RANGEL ANDP ERSONAL ITEMS IN REACH. FAMILY AT BEDSIDE. WILL CONTINUE TO MONITOR.
--- NOTE | 2018-10-25 14:07 | NUR ---
IV LEAKING TO RIGHT WRIST. RESITED TO LFA.
--- NOTE | 2018-10-25 14:35 | NUR ---
PATIENT RESTING IN BED. FAMILY AT BEDSIDE. DENIES PAIN. DENIES NEEDS. WILL CONTINUE TO MONITOR.
--- NOTE | 2018-10-25 17:26 | NUR ---
RESTING IN BED. DENIES PAIN. DENIES NEEDS. FAMILY AT BEDSIDE. BED LOW. CALL RANGEL AND PERSONAL ITEMS IN REACH. WILL CONTINUE TO MONITOR.
--- NOTE | 2018-10-25 20:18 | NUR ---
REC'D. IN BED SUPINE POSITION. FAMILY AT BED SIDE. DENIES ANY PAIN OR DISCOMFORT AT PRESENT TIME. ADLER PATENT AND DRAINING YELLOW URINE .WILL CONTINUE TO MONITOR FOR ANY CHGES AND FOLLOW CURRENT PLAN OF CARE.
[2018-10-26 01:11] VITALS: BP 149/80
[2018-10-26 06:23] VITALS: BP 148/75
--- NOTE | 2018-10-26 07:13 | NUR ---
ALERT AND ORIENTED. LUNGS CLEAR BILATERALLY IN ALL ERNANDEZ. HEART SOUNDS S1 AND S2 HEARD IN ALL ERNANDEZ. BOWEL SOUNDS ACTIVE X 4. SKIN INTACT WITHOUT REDNESS. IV PATENT TO LFA WITHOUT REDNESS. ADLER PATENT DRAINING YELLOW URINE. DENIES PAIN. DENIES NEEDS. BED LOW. CALL RANGEL AND PERSONAL ITEMS IN REACH. WILL CONTINUE TO MONITOR.
[2018-10-26 08:56] VITALS: BP 142/82
--- NOTE | 2018-10-26 09:00 | NUR ---
EDUCATION PROVIDED ON NEED TO SPUTUM SAMPLE. STATES HAS NOT BEEN COUGHING ANYTHING UP.
[2018-10-26 09:02] LABS: BASOPHILS 0.3 % (0-2); EOSINOPHILS 5.2 % (0-7); HEMATOCRIT 31.9 % (42.0-54.0); HEMOGLOBIN 10.7 g/dL (13.5-17.5); IMMATURE GRANULOCYTES 0.7 % (0-5); LYMPHOCYTES 11.3 % (15-50); MCH 29.6 pg (26.0-34.0); MCHC 33.5 g/dL (31.0-37.0); MCV 88.1 fL (80.0-100.0); MEAN PLATELET VOLUME 9.7 fL (7.4-10.4); MONOCYTES 11.9 % (2-11); NEUTROPHILS 70.6 % (40-80); PLATELET COUNT 464 10x3/uL (130-400); RBC 3.62 10x6/uL (4.20-6.10); RDW 14.8 % (11.5-14.5)
[2018-10-26 09:03] LABS: WBC 7.6 10x3/uL (4.8-10.8)
[2018-10-26 09:28] LABS: CARBON DIOXIDE 32.7 mmol/L (21.0-32.0); CHLORIDE - SERUM 103 mmol/L (98-107); SODIUM 140 mmol/L (136-145); eGFR NON AFRICAN AMERICAN 75 mL/min (90-120)
--- NOTE | 2018-10-26 09:35 | NUR ---
RESTING IN BED. SON AT BEDSIDE. DENIES PAIN. DENIES NEEDS.
[2018-10-26 09:42] LABS: CALC OSMOLALITY 279 mosm/kg (275-300); CALCIUM 6.9 mg/dL (8.5-10.1); GLUCOSE 152 mg/dL (74-106); UREA NITROGEN 7 mg/dL (7-18)
[2018-10-26 09:43] LABS: POTASSIUM - SERUM 2.9 mmol/L (3.5-5.1)
--- NOTE | 2018-10-26 09:44 | NUR ---
POTASSIUM 2.9 CALLED BY LAB AND RELAYED TO [facility] CELAYA BY NURSE.
--- NOTE | 2018-10-26 10:02 | NUR ---
PROTONIX DRIP DISCONTINUED PER ORDER. POTASSIUM 10MEQ BAGS HUNG AND FIRST BAG STARTED INFUSING. EDUCATION PROVIDED ON NEED FOR POTASSIUM. VERBALIZED UNDERSTANDING. DENIES FURTHER QUESTIONS.
[2018-10-26] MEDS ORDERED: NORVASC2.5 MG PO (11:18)
[2018-10-26] MEDS ORDERED: FLAGYL500 MG PO (11:19)
[2018-10-26] MEDS ORDERED: PROTONIX40 MG PO (11:19)
[2018-10-26] MEDS ORDERED: CARAFATE1 G PO (11:21)
--- NOTE | 2018-10-26 11:55 | NUR ---
SPOKE WITH DR TANG WHO STATED HERB ADLER IN D/T RETENTION AT DISCHARGE
--- NOTE | 2018-10-26 12:12 | NUR ---
NEW ADLER BAG AND LEG BAG PROVIDED TO FAMILY FOR DISCHARGE. EDUCATION PROVIDED THAT PATIENT WILL NEED TO RECEIVE POTASSIUM RIDERS X4 MORE AND GET LAB REDRAW PRIOR TO QUESTIONS. DENY FURTHER QUESTIONS.
--- NOTE | 2018-10-26 12:24 | MORECARE ---
CASE MANAGEMENT DISCHARGE SUMMARY PATIENT: TYLER GIBBS UNIT: [id number] ADM DATE: 10/10/18 AGE: 88 : [birth year] SEX: M ROOM/BED: D.2226 AUTHOR: ROLLY,DOC PHYSICIAN: REFERRING PHYSICIAN: CÉSAR BORJAS MD DATE OF SERVICE: 10/26/18 Discharge Plan Patient Name: TYLER GIBBS Facility: [facility]:[place] : 1930 Planned Disposition: Home with Home Health Anticipated Discharge Date: 10/14/18 Discharge Date: Expected LOS: 4 Initial Reviewer: [email or web address] Initial Review Date: 10/11/2018 Generated: 10/26/18 1:24 pm Comments DCP- Discharge Planning Updated by [id number]: Deidre Paul on 10/26/18 11:[address] Met with patient and son, Jose Antonio, to discuss discharge planning. I had PT reassess patient and he ambulated 250 feet. Patient would like to go home with [facility]. I called Trace Pierre and she is aware that he is receiving IV potassium, his primary nurse will call results of repeat potassium level this evening. the son is aware. [facility] notified of discharge and clinical faxed. CM will continue to follow and assist with discharge planning/needs. DCP- Discharge Planning Updated by [id number]: Lisa Ramírez on 10/15/18 9:[address] PATIENT IS SEEN IN [facility]. WILL FORWARD DISCHARGE ORDERS FROM [facility] TO [facility] WHEN RECEIVED. DCP- Discharge Planning Updated by [id number]: Lisa Ramírez on 10/15/18 9:[address] [facility] HAS RECEIVED A REFERRAL W/ ORDERS FROM [facility] PER MAU TODAY. PATIENT IS ON THE LIST TO BE SEEN. POSSIBLE DISCHARGE TO HOME TODAY. [facility] [place]. SURGERY HAS CLEARED PATIENT FOR DISCHARGE PER THE 10/14/18 NOTE. DCP- Discharge Planning Updated by [id number]: Jose D Summers on 10/14/18 4:[address] Patient Name: TYLER GIBBS Encounter No: [id number] : 1930 Primary Insurance: MEDICARE A & B Anticipated DC Date: 10-14-2018 Planned Disposition: Home with Home Health External Planned Provider: [facility] DCP follow-up note: CM RECEIVED REQUEST TO MEET WITH PT AND SPOUSE IN ROOM TO DISCUSS DISCHARGE PLANNING. PT'S SPOUSE IS CONCERNED THAT PT MAY DISCHARGE HOME TODAY AND SHE HAS THINGS TO DO TODAY AND WOULD LIKE PT TO STAY IN THE HOSPITAL ONE MORE NIGHT. CM DISCUSSED WHEN PT IS MEDICALLY STABLE FOR DISCHARGE PT WILL BE DISCHARGED. PT'S SPOUSE WANTS CM TO ENSURE THAT THE DOCTOR DOES NOT DISCHARGE PT TODAY. CM EXPLAINED CM'S ROLE. CM OFFERED TO ASSIST WITH REHAB PLACEMENT OR OTHER OUT OF HOME PLACMENT. PT AND SPOUSE DECLINED. PT STATES HE WILL BE GOING HOME. PT'S SPOUSE STATES SHE WILL BE HERE AT 5PM BUT WILL NOT BE READY TO TAKE PT HOME UNTIL TOMORROW. PT'S SPOUSE REQUESTED HOME HEALTH WITH [facility]. CHOICE LETTER SIGNED. IMPORTANT MESSAGE FROM MEDICARE PROVIDED AND EXPLAINED. CM OBTAINED HOME HEALTH ORDER. CM CALLED [facility] [phone],. SPOKE TO NISSA WHO ACCEPTED REFERRAL FOR ADMIT ON THURSDAY. CM FAXED REFERRAL TO [facility] AT [phone]. FOR DISCHARGE HOME WITH HOME HEALTH, NOTIFY [facility] AT [phone], FAX DISCHARGE INFORMATION TO [facility] AT [phone]. Jose D Summers,. CASE MANAGEMENT DCP- Discharge Planning Updated by [id number]: Jose D Summers on 10/11/18 3:[address] Patient Name: TYLER GIBBS Admission Status: ER Accout number: [id number] Admission Date: 10-10-2018 : 1930 Admission Diagnosis: Attending: CÉSAR BORJAS Current LOS: 1 Anticipated DC Date: Planned Disposition: Home Primary Insurance: MEDICARE A & B Discharge Planning Comments: CM MET WITH PT AND SPOUSE IN ROOM TO DISCUSS DISCHARGE PLANNING AND NEEDS. TYLER GIBBS provided verbal consent to discuss current and ongoing needs with/in the presence of: SPOUSE, JYOTI. PT REPORTS LIVING AT HOME INDEPENDENTLY WITH HIS SPOUSE. PT HAS CPAP FROM [facility]. PT HAS NO OUTSIDE SERVICES ASSISTING IN THE HOME. CM DISCUSSED AVAILABILITY OF HOME HEALTH, REHAB SERVICES AND MEDICAL EQUIPMENT. PT DENIES DISCHARGE NEEDS, REPORTS HIS WILL PICK HIM UP FOR DISCHARGE HOME. PT PLANS TO DISCHARGE HOME WITH SPOUSE, HAS NO ANTICIPATED DISCHARGE NEEDS. SPOUSE TO TRANSPORT HOME AT DISCHARGE. CM TO FOLLOW AND ASSIST IF NEEDED. Comfort Filler: Jose D Summers DCPIA - Discharge Planning Initial Assessment Updated by [id number]: Jose D Summers on 10/11/18 4:51 pm * Is the patient Alert and Oriented? Yes * How many steps to enter\exit or inside your home? 0-O / 12-I * PCP [facility], [facility] * Pharmacy [facility] * Preadmission Environment Home with Family * ADLs Independent * Equipment CPAP * Other Equipment [facility] - MEDICAL EQUIPMENT PROVIDER * List name and contact numbers for known caregivers / representatives who currently or will assist patient after discharge: [facility], * Verbal permission to speak to the caregivers and representatives has been obtained from the patient. Yes * Community resources currently utilized None * Please name any agencies selected above. NONE * Additional services required to return to the preadmission environment? No * Can the patient safely return to the preadmission environment? Yes * Has this patient been hospitalized within the prior 30 days at any hospital? No Coverage Notice Reviewer: JULIET Summers Notice Issued Date-Time: 10/14/2018 11:25 Notice Type: IM Discharge Notice Notice Delivered To: Patient Relationship to Patient: Prepress Manager Name: Delivery Method: HAND - Hand Delivered Latesha Days: Prior Verbal Notification: Recipient Understood Notice: Yes Recipient Signature: Yes Med Rec Note Co-signed by Attending: Coverage Notice Comment: Reviewer: JULIET Summers Notice Issued Date-Time: 10/14/2018 11:25 Notice Type: IM Discharge Notice Notice Delivered To: Family Member Relationship to Patient: Spouse Prepress Manager Name: JYOTI Delivery Method: HAND - Hand Delivered Latesha Days: Prior Verbal Notification: Recipient Understood Notice: Yes Recipient Signature: Yes Med Rec Note Co-signed by Attending: Coverage Notice Comment: Reviewer: JULIET Summers Notice Issued Date-Time: 10/14/2018 11:25 Notice Type: Patient Choice Letter Notice Delivered To: Family Member Relationship to Patient: Spouse Prepress Manager Name: JYOTI Delivery Method: HAND - Hand Delivered Latesha Days: Prior Verbal Notification: Recipient Understood Notice: Yes Recipient Signature: Yes Med Rec Note Co-signed by Attending: Coverage Notice Comment: [facility] Reviewer: [id number] Torres Paul Notice Issued Date-Time: 10/26/2018 12:09 Notice Type: IM Discharge Notice Notice Delivered To: Patient Relationship to Patient: Self Prepress Manager Name: Delivery Method: HAND - Hand Delivered Latesha Days: Prior Verbal Notification: Recipient Understood Notice: Yes Recipient Signature: Yes Med Rec Note Co-signed by Attending: Coverage Notice Comment: IMM explained, signed, given, copy placed in MR Last DP export: 10/15/18 9:33 a Patient Name: TYLER GIBBS Page [id number] at 1224 All edits/amendments must be made on the electronic document DICTATION DATE: 10/26/18 1224 ALLOPATHIC DOCTOR: FAMILIA 10/26/18 1224 RPT#: [id number] DC DATE: STATUS: ADM IN [facility] [address] [place] [address] END OF REPORT
--- NOTE | 2018-10-26 12:32 | MORECARE ---
CASE MANAGEMENT DISCHARGE SUMMARY PATIENT: TYLER GIBBS UNIT: [id number] ADM DATE: 10/10/18 AGE: 88 : [birth year] SEX: M ROOM/BED: D.2226 AUTHOR: ROLLY,DOC PHYSICIAN: REFERRING PHYSICIAN: CÉSAR BORJAS MD DATE OF SERVICE: 10/26/18 Discharge Plan Patient Name: TYLER GIBBS Facility: [facility]:[place] : 1930 Planned Disposition: Home with Home Health Anticipated Discharge Date: 10/14/18 Discharge Date: Expected LOS: 4 Initial Reviewer: [id number] Initial Review Date: 10/11/2018 Generated: 10/26/18 1:32 pm Comments DCP- Discharge Planning Updated by [email or web address]: Deidre Paul on 10/26/18 11:[address] I spoke with Lupe at [facility] and she will call house calls to coordinate their visits with house calls. I questioned him on DME and he states he has a 2 wheeled walker and denies other needs for DME. Home today with [facility]. DCP- Discharge Planning Updated by [id number]: Deidre Paul on 10/26/18 11:[address] Met with patient and son, Jose Antonio, to discuss discharge planning. I had PT reassess patient and he ambulated 250 feet. Patient would like to go home with [facility]. I called Trace Pierre and she is aware that he is receiving IV potassium, his primary nurse will call results of repeat potassium level this evening. the son is aware. [facility] notified of discharge and clinical faxed. CM will continue to follow and assist with discharge planning/needs. DCP- Discharge Planning Updated by [id number]: Lisa Ramírez on 10/15/18 9:[address] PATIENT IS SEEN IN [facility]. WILL FORWARD DISCHARGE ORDERS FROM [facility] TO [facility] WHEN RECEIVED. DCP- Discharge Planning Updated by [email or web address]: Lisa Ramírez on 10/15/18 9:[address] [facility] HAS RECEIVED A REFERRAL W/ ORDERS FROM [facility] PER MAU TODAY. PATIENT IS ON THE LIST TO BE SEEN. POSSIBLE DISCHARGE TO HOME TODAY. AWAITI MD ROUNDS. SURGERY HAS CLEARED PATIENT FOR DISCHARGE PER THE 10/14/18 NOTE. DCP- Discharge Planning Updated by [id number]: Jose D Summers on 10/14/18 4:[address] Patient Name: TYLER GIBBS Encounter No: [id number] : 1930 Primary Insurance: MEDICARE A & B Anticipated DC Date: 10-14-2018 Planned Disposition: Home with Home Health External Planned Provider: [facility] DCP follow-up note: CM RECEIVED REQUEST TO MEET WITH PT AND SPOUSE IN ROOM TO DISCUSS DISCHARGE PLANNING. PT'S SPOUSE IS CONCERNED THAT PT MAY DISCHARGE HOME TODAY AND SHE HAS THINGS TO DO TODAY AND WOULD LIKE PT TO STAY IN THE HOSPITAL ONE MORE NIGHT. CM DISCUSSED WHEN PT IS MEDICALLY STABLE FOR DISCHARGE PT WILL BE DISCHARGED. PT'S SPOUSE WANTS CM TO ENSURE THAT THE DOCTOR DOES NOT DISCHARGE PT TODAY. CM EXPLAINED CM'S ROLE. CM OFFERED TO ASSIST WITH REHAB PLACEMENT OR OTHER OUT OF HOME PLACMENT. PT AND SPOUSE DECLINED. PT STATES HE WILL BE GOING HOME. PT'S SPOUSE STATES SHE WILL BE HERE AT 5PM BUT WILL NOT BE READY TO TAKE PT HOME UNTIL TOMORROW. PT'S SPOUSE REQUESTED HOME HEALTH WITH [facility]. CHOICE LETTER SIGNED. IMPORTANT MESSAGE FROM MEDICARE PROVIDED AND EXPLAINED. CM OBTAINED HOME HEALTH ORDER. CM CALLED [facility] [phone],. SPOKE TO LUPE WHO ACCEPTED REFERRAL FOR ADMIT ON THURSDAY. CM FAXED REFERRAL TO [facility] AT [phone]. FOR DISCHARGE HOME WITH HOME HEALTH, NOTIFY [facility] AT [phone], FAX DISCHARGE INFORMATION TO [facility] AT [phone]. Jose D Summers,. CASE MANAGEMENT DCP- Discharge Planning Updated by [email or web address]: Jose D Summers on 10/11/18 3:[address] Patient Name: TYLER GIBBS Admission Status: ER Accout number: [id number] Admission Date: 10-10-2018 : 1930 Admission Diagnosis: Attending: CÉSAR BORJAS Current LOS: 1 Anticipated DC Date: Planned Disposition: Home Primary Insurance: MEDICARE A & B Discharge Planning Comments: CM MET WITH PT AND SPOUSE IN ROOM TO DISCUSS DISCHARGE PLANNING AND NEEDS. TYLER GIBBS provided verbal consent to discuss current and ongoing needs with/in the presence of: SPOUSEJYOTI. PT REPORTS LIVING AT HOME INDEPENDENTLY WITH HIS SPOUSE. PT HAS CPAP FROM [facility]. PT HAS NO OUTSIDE SERVICES ASSISTING IN THE HOME. CM DISCUSSED AVAILABILITY OF HOME HEALTH, REHAB SERVICES AND MEDICAL EQUIPMENT. PT DENIES DISCHARGE NEEDS, REPORTS HIS WILL PICK HIM UP FOR DISCHARGE HOME. PT PLANS TO DISCHARGE HOME WITH SPOUSE, HAS NO ANTICIPATED DISCHARGE NEEDS. SPOUSE TO TRANSPORT HOME AT DISCHARGE. CM TO FOLLOW AND ASSIST IF NEEDED. Application Integrator: Jose D Summers DCPIA - Discharge Planning Initial Assessment Updated by [id number]: Jose D Summers on 10/11/18 4:51 pm * Is the patient Alert and Oriented? Yes * How many steps to enter\exit or inside your home? 0-O / 12-I * PCP [facility], [facility] * Pharmacy [facility] * Preadmission Environment Home with Family * ADLs Independent * Equipment CPAP * Other Equipment [facility] - MEDICAL EQUIPMENT PROVIDER * List name and contact numbers for known caregivers / representatives who currently or will assist patient after discharge: RIVER [place], * Verbal permission to speak to the caregivers and representatives has been obtained from the patient. Yes * Community resources currently utilized None * Please name any agencies selected above. NONE * Additional services required to return to the preadmission environment? No * Can the patient safely return to the preadmission environment? Yes * Has this patient been hospitalized within the prior 30 days at any hospital? No Coverage Notice Reviewer: [email or web address] Torres Paul Notice Issued Date-Time: 10/26/2018 12:09 Notice Type: IM Discharge Notice Notice Delivered To: Patient Relationship to Patient: Self Publications Manager Name: Delivery Method: HAND - Hand Delivered Latesha Days: Prior Verbal Notification: Recipient Understood Notice: Yes Recipient Signature: Yes Med Rec Note Co-signed by Attending: Coverage Notice Comment: IMM explained, signed, given, copy placed in MR Reviewer: [email or web address] Torres Summers Notice Issued Date-Time: 10/14/2018 11:25 Notice Type: IM Discharge Notice Notice Delivered To: Patient Relationship to Patient: Publications Manager Name: Delivery Method: HAND - Hand Delivered Latesha Days: Prior Verbal Notification: Recipient Understood Notice: Yes Recipient Signature: Yes Med Rec Note Co-signed by Attending: Coverage Notice Comment: Reviewer: [id number] Torres Summers Notice Issued Date-Time: 10/14/2018 11:25 Notice Type: IM Discharge Notice Notice Delivered To: Family Member Relationship to Patient: Spouse Publications Manager Name: JYTOI Delivery Method: HAND - Hand Delivered Latesha Days: Prior Verbal Notification: Recipient Understood Notice: Yes Recipient Signature: Yes Med Rec Note Co-signed by Attending: Coverage Notice Comment: Reviewer: [id number] Torres Summers Notice Issued Date-Time: 10/14/2018 11:25 Notice Type: Patient Choice Letter Notice Delivered To: Family Member Relationship to Patient: Spouse Publications Manager Name: JYOTI Delivery Method: HAND - Hand Delivered Latesha Days: Prior Verbal Notification: Recipient Understood Notice: Yes Recipient Signature: Yes Med Rec Note Co-signed by Attending: Coverage Notice Comment: [facility] Last DP export: 10/26/18 11:24 a Patient Name: TYLER GIBBS Page [id number] at 1232 All edits/amendments must be made on the electronic document DICTATION DATE: 10/26/18 1232 HEALTH CARE ASSISTANT: FAMILIA 10/26/18 1232 RPT#: [id number] DC DATE: STATUS: ADM IN [facility] [address] [place] [address] END OF REPORT
[2018-10-26] MEDS ORDERED: BAYER CHEWABLE81 MG PO (13:20)
[2018-10-26] MEDS ORDERED: ZINC-220220 MG PO (13:21)
--- NOTE | 2018-10-26 14:19 | NUR ---
PATIENT RESTING IN BED. DENIES PAIN. DENIES NEEDS. WILL CONTINUE TO MONITOR.
--- NOTE | 2018-10-26 19:59 | NUR ---
DISCAHRGE INSTRUCTIONS COVERED WITH PT AND PT FAMILY MEMBERS. ALL QUESTIONS ANSWERED. PT AND PT FAMILY MEMBERS EDUCATED ON ADLER CATHETER CARE AND SHOWED HOW TO PROPERLY CHANGE LEG BAG/LARGE COLLECTION BAG. PT AND PT FAMILY MEMBERS VERBALIZE UNDERSTANDING AND DENY FURTHER QUESTIONS/CONCERNS. PIV TO LEFT FOREARM REMOVED WITH CATHETER TIP INTACT. DRESSING APPLIED. ALL DISCHARGE PAPERS SIGNED.
--- NOTE | 2018-10-26 20:06 | NUR ---
PT NOTIFIED CONSTRUCTION PROJECT ASSISTANT STAFF WHEN READY FOR TRANSPORT OUT OF ROOM
--- NOTE | 2018-10-26 20:23 | NUR ---
ALREADY HAS DISCHARGE INSTRUCTIONS,RX. IV OUT.DISCHARGED HOME VIA WC WITH SPOUSE AND SON IN ATTENDANCE.
--- NOTE | 2018-11-02 06:46 | MORECARE ---
CASE MANAGEMENT DISCHARGE SUMMARY PATIENT: TYLER GIBBS UNIT: [id number] ADM DATE: 10/10/18 AGE: 88 : [birth year] SEX: M ROOM/BED: D.2226 AUTHOR: ROLLY,DOC PHYSICIAN: REFERRING PHYSICIAN: CÉSAR BORJAS MD DATE OF SERVICE: 11/02/18 Discharge Plan Patient Name: TYLER GIBBS Facility: [facility]:[place] : 1930 Planned Disposition: Home with Home Health Anticipated Discharge Date: 10/14/18 Discharge Date: 10/26/2018 Expected LOS: 4 Initial Reviewer: [email or web address] Initial Review Date: 10/11/2018 Generated: 11/02/18 7:46 am Comments DCP- Discharge Planning Updated by [id number]: Deidre Paul on 10/26/18 11:[address] I spoke with Lupe at [place] and she will call house calls to coordinate their visits with house calls. I questioned him on DME and he states he has a 2 wheeled walker and denies other needs for DME. Home today with [facility]. DCP- Discharge Planning Updated by [email or web address]: Deidre Paul on 10/26/18 11:[address] Met with patient and son, Jose Atnonio, to discuss discharge planning. I had PT reassess patient and he ambulated 250 feet. Patient would like to go home with [facility]. I called Trace Pierre and she is aware that he is receiving IV potassium, his primary nurse will call results of repeat potassium level this evening. the son is aware. [facility] notified of discharge and clinical faxed. CM will continue to follow and assist with discharge planning/needs. DCP- Discharge Planning Updated by [id number]: Lisa Ramírez on 10/15/18 9:[address] PATIENT IS SEEN IN [facility]. WILL FORWARD DISCHARGE ORDERS FROM [facility] TO [place] [facility] WHEN RECEIVED. DCP- Discharge Planning Updated by [id number]: Lisa Ramírez on 10/15/18 9:[address] [facility] HAS RECEIVED A REFERRAL W/ ORDERS FROM [facility] PER MAU TODAY. PATIENT IS ON THE LIST TO BE SEEN. POSSIBLE DISCHARGE TO HOME TODAY. AWABELL ROUNDS. SURGERY HAS CLEARED PATIENT FOR DISCHARGE PER THE 10/14/18 NOTE. DCP- Discharge Planning Updated by [id number]: Jose D Summers on 10/14/18 4:[address] Patient Name: TYLER GIBBS Encounter No: [id number] : 1930 Primary Insurance: MEDICARE A & B Anticipated DC Date: 10-14-2018 Planned Disposition: Home with Home Health External Planned Provider: [facility] DCP follow-up note: CM RECEIVED REQUEST TO MEET WITH PT AND SPOUSE IN ROOM TO DISCUSS DISCHARGE PLANNING. PT'S SPOUSE IS CONCERNED THAT PT MAY DISCHARGE HOME TODAY AND SHE HAS THINGS TO DO TODAY AND WOULD LIKE PT TO STAY IN THE HOSPITAL ONE MORE NIGHT. CM DISCUSSED WHEN PT IS MEDICALLY STABLE FOR DISCHARGE PT WILL BE DISCHARGED. PT'S SPOUSE WANTS CM TO ENSURE THAT THE DOCTOR DOES NOT DISCHARGE PT TODAY. CM EXPLAINED CM'S ROLE. CM OFFERED TO ASSIST WITH REHAB PLACEMENT OR OTHER OUT OF HOME PLACMENT. PT AND SPOUSE DECLINED. PT STATES HE WILL BE GOING HOME. PT'S SPOUSE STATES SHE WILL BE HERE AT 5PM BUT WILL NOT BE READY TO TAKE PT HOME UNTIL TOMORROW. PT'S SPOUSE REQUESTED HOME HEALTH WITH [facility]. CHOICE LETTER SIGNED. IMPORTANT MESSAGE FROM MEDICARE PROVIDED AND EXPLAINED. CM OBTAINED HOME HEALTH ORDER. CM CALLED [facility] [phone],. SPOKE TO LU[facility] WHO ACCEPTED REFERRAL FOR ADMIT ON THURSDAY. CM FAXED REFERRAL TO [place] AT [phone]. FOR DISCHARGE HOME WITH HOME HEALTH, NOTIFY [facility] AT [phone], FAX DISCHARGE INFORMATION TO [facility] [facility] AT [phone]. Jose D Summers,. CASE MANAGEMENT DCP- Discharge Planning Updated by [id number]: Jose D Summers on 10/11/18 3:[address] Patient Name: TYLER GIBBS Admission Status: ER Accout number: [id number] Admission Date: 10-10-2018 : 1930 Admission Diagnosis: Attending: CÉSAR BORJAS Current LOS: 1 Anticipated DC Date: Planned Disposition: Home Primary Insurance: MEDICARE A & B Discharge Planning Comments: CM MET WITH PT AND SPOUSE IN ROOM TO DISCUSS DISCHARGE PLANNING AND NEEDS. TYLER GIBBS provided verbal consent to discuss current and ongoing needs with/in the presence of: SPOUSEJYOTI. PT REPORTS LIVING AT HOME INDEPENDENTLY WITH HIS SPOUSE. PT HAS CPAP FROM [facility]. PT HAS NO OUTSIDE SERVICES ASSISTING IN THE HOME. CM DISCUSSED AVAILABILITY OF HOME HEALTH, REHAB SERVICES AND MEDICAL EQUIPMENT. PT DENIES DISCHARGE NEEDS, REPORTS HIS WILL PICK HIM UP FOR DISCHARGE HOME. PT PLANS TO DISCHARGE HOME WITH SPOUSE, HAS NO ANTICIPATED DISCHARGE NEEDS. SPOUSE TO TRANSPORT HOME AT DISCHARGE. CM TO FOLLOW AND ASSIST IF NEEDED. Jewel Sawyer: Jose D Summers DCPIA - Discharge Planning Initial Assessment Updated by [id number]: Jose D Summers on 10/11/18 4:51 pm * Is the patient Alert and Oriented? Yes * How many steps to enter\exit or inside your home? 0-O / 12-I * PCP [facility], [facility] * [facility] * Preadmission Environment Home with Family * ADLs Independent * Equipment CPAP * Other Equipment [facility] - MEDICAL EQUIPMENT PROVIDER * List name and contact numbers for known caregivers / representatives who currently or will assist patient after discharge: JYOTIRIVER DOBBINS, * Verbal permission to speak to the caregivers and representatives has been obtained from the patient. Yes * Community resources currently utilized None * Please name any agencies selected above. NONE * Additional services required to return to the preadmission environment? No * Can the patient safely return to the preadmission environment? Yes * Has this patient been hospitalized within the prior 30 days at any hospital? No Coverage Notice Reviewer: JULIET Summers Notice Issued Date-Time: 10/14/2018 11:25 Notice Type: IM Discharge Notice Notice Delivered To: Patient Relationship to Patient: Carpet Cleaning Technician Name: Delivery Method: HAND - Hand Delivered Latesha Days: Prior Verbal Notification: Recipient Understood Notice: Yes Recipient Signature: Yes Med Rec Note Co-signed by Attending: Coverage Notice Comment: Reviewer: JULIET Summers Notice Issued Date-Time: 10/14/2018 11:25 Notice Type: IM Discharge Notice Notice Delivered To: Family Member Relationship to Patient: Spouse Carpet Cleaning Technician Name: JYOTI Delivery Method: HAND - Hand Delivered Latesha Days: Prior Verbal Notification: Recipient Understood Notice: Yes Recipient Signature: Yes Med Rec Note Co-signed by Attending: Coverage Notice Comment: Reviewer: JULIET Summers Notice Issued Date-Time: 10/14/2018 11:25 Notice Type: Patient Choice Letter Notice Delivered To: Family Member Relationship to Patient: Spouse Carpet Cleaning Technician Name: JYOTI Delivery Method: HAND - Hand Delivered Latesha Days: Prior Verbal Notification: Recipient Understood Notice: Yes Recipient Signature: Yes Med Rec Note Co-signed by Attending: Coverage Notice Comment: [facility] Reviewer: [id number] Torres Paul Notice Issued Date-Time: 10/26/2018 12:09 Notice Type: IM Discharge Notice Notice Delivered To: Patient Relationship to Patient: Self Carpet Cleaning Technician Name: Delivery Method: HAND - Hand Delivered Latesha Days: Prior Verbal Notification: Recipient Understood Notice: Yes Recipient Signature: Yes Med Rec Note Co-signed by Attending: Coverage Notice Comment: IMM explained, signed, given, copy placed in MR Last DP export: 10/26/18 11:32 a Patient Name: TYLER GIBBS Page [id number] at 0646 All edits/amendments must be made on the electronic document DICTATION DATE: 11/02/18644 SUPERVISOR COMPONENT ASSEMBLER: FAMILIA 11/02/1845 RPT#: [id number] DC DATE:10/26/18 STATUS: DIS IN [facility] [address] [place] [address] END OF REPORT
== END 2018-10-26 20:27 | disposition home health service (06) | DRG 853 ==
LOC: D.ER 15:16 → D.M2 19:30 → D.ICU 10-22 09:00 → D.MS 10-25 13:02
PROVIDERS: Emergency Medicine; Family Medicine; Internal Medicine Gastroenterology; Surgery; Urology; ADMIT Internal Medicine Nephrology; ATTEND Internal Medicine Nephrology
PROC: 0FT44ZZ Resection of Gallbladder, Percutaneous Endoscopic Approach (ICD-10-PCS; principal; 2018-10-13 13:00)
PROC: 0T9B80Z Drainage of Bladder with Drainage Device, Via Natural or Artificial Opening Endoscopic (ICD-10-PCS; 2018-10-20)
PROC: 0TCB8ZZ Extirpation of Matter from Bladder, Via Natural or Artificial Opening Endoscopic (ICD-10-PCS; 2018-10-20 12:00)
PROC: 0DJ08ZZ Inspection of Upper Intestinal Tract, Via Natural or Artificial Opening Endoscopic (ICD-10-PCS; 2018-10-22)
DX: A41.9 Sepsis, unspecified organism (principal); K85.10 Biliary acute pancreatitis without necrosis or infection; K22.11 Ulcer of esophagus with bleeding; J18.9 Pneumonia, unspecified organism; N17.9 Acute kidney failure, unspecified; J98.11 Atelectasis; A04.72 Enterocolitis due to Clostridium difficile, not specified as recurrent; N13.30 Unspecified hydronephrosis; N13.8 Other obstructive and reflux uropathy; K80.20 Calculus of gallbladder without cholecystitis without obstruction; E11.9 Type 2 diabetes mellitus without complications; I10 Essential (primary) hypertension; I25.10 Atherosclerotic heart disease of native coronary artery without angina pectoris; Z87.891 Personal history of nicotine dependence; N40.1 Benign prostatic hyperplasia with lower urinary tract symptoms; D50.0 Iron deficiency anemia secondary to blood loss (chronic)

== ENCOUNTER 2018-10-28 20:03 | Emergency (ER) | payer MEDICARE, OTHER ==
[~2018-10-28] VITALS: Ht 185.4 cm; Wt 77.3 kg
[~2018-10-28 20:03] MED LIST changes: +CARAFATE1 G PO; +FLAGYL500 MG PO; +NORVASC2.5 MG PO; +PROTONIX40 MG PO; +ZINC-220220 MG PO
[2018-10-28 20:19] VITALS: Ht 185.4 cm; Wt 77.3 kg
[2018-10-28 23:38] LABS: BASOPHILS 0.2 % (0-2); EOSINOPHILS 0.3 % (0-7); HEMATOCRIT 32.7 % (42.0-54.0); HEMOGLOBIN 11.1 g/dL (13.5-17.5); IMMATURE GRANULOCYTES 0.4 % (0-5); LYMPHOCYTES 8.1 % (15-50); MCH 29.8 pg (26.0-34.0); MCHC 33.9 g/dL (31.0-37.0); MCV 87.7 fL (80.0-100.0); MEAN PLATELET VOLUME 9.7 fL (7.4-10.4); MONOCYTES 8.6 % (2-11); NEUTROPHILS 82.4 % (40-80); PLATELET COUNT 478 10x3/uL (130-400); RBC 3.73 10x6/uL (4.20-6.10); RDW 14.8 % (11.5-14.5); WBC 11.8 10x3/uL (4.8-10.8)
[2018-10-28 23:49] LABS: ALBUMIN 2.4 g/dL (3.4-5.0); ANION GAP 13.1 mmol/L (8-16); BILIRUBIN - TOTAL 0.37 mg/dL (0.2-1.3); CALCIUM 8.3 mg/dL (8.5-10.1); CARBON DIOXIDE 27.4 mmol/L (21.0-32.0); CREATININE - SERUM 1.3 mg/dL (0.6-1.3); POTASSIUM - SERUM 3.5 mmol/L (3.5-5.1); PROTEIN - SERUM 6.1 g/dL (6.4-8.2)
[2018-10-29 01:35] VITALS: BP 138/76
== END 2018-10-29 01:35 | disposition home or self-care (01) ==
LOC: D.ER 20:03
PROVIDERS: Family Medicine
DX: R33.9 Retention of urine, unspecified (principal); R31.9 Hematuria, unspecified

== ENCOUNTER 2018-11-04 08:01 | Day surgery (SDC) | payer MEDICARE, OTHER ==
[~2018-11-04] VITALS: Ht 185.4 cm; Wt 79.4 kg
[2018-11-04 08:20] LABS: BASOPHILS 0.9 % (0-2); EOSINOPHILS 4.9 % (0-7); HEMOGLOBIN 11.1 g/dL (13.5-17.5); IMMATURE GRANULOCYTES 0.2 % (0-5); LYMPHOCYTES 24.2 % (15-50); MCH 29.5 pg (26.0-34.0); MCHC 33.6 g/dL (31.0-37.0); MCV 87.8 fL (80.0-100.0); MEAN PLATELET VOLUME 9.5 fL (7.4-10.4); MONOCYTES 12.5 % (2-11); NEUTROPHILS 57.3 % (40-80); PLATELET COUNT 394 10x3/uL (130-400); RBC 3.76 10x6/uL (4.20-6.10); RDW 15.1 % (11.5-14.5); WBC 6.5 10x3/uL (4.8-10.8)
[2018-11-04 08:31] LABS: CALC OSMOLALITY 279 mosm/kg (275-300); CALCIUM 8.9 mg/dL (8.5-10.1); CARBON DIOXIDE 31.2 mmol/L (21.0-32.0); CHLORIDE - SERUM 103 mmol/L (98-107); GLUCOSE 178 mg/dL (74-106); POTASSIUM - SERUM 3.4 mmol/L (3.5-5.1); SODIUM 139 mmol/L (136-145); UREA NITROGEN 8 mg/dL (7-18); eGFR NON AFRICAN AMERICAN 75 mL/min (90-120)
[2018-11-04 12:40] VITALS: BP 164/80; Ht 185.4 cm; Wt 79.4 kg
--- NOTE | 2018-11-04 15:24 | NUR ---
1510-RECD TO ROOM. ALERT. IV PATENT. ADLER CATH DRAINING BLOODY URINE. RESP WITH EASE. 1525-DR TANG IN TO REPORT AND ANSWER QUESTIONS. FULL LIQUIDS SERVED.
--- NOTE | 2018-11-04 15:36 | NUR ---
1530-FULL LIQUIDS SERVED.
--- NOTE | 2018-11-04 16:48 | NUR ---
1148-FIRST UNIT OF BLOOD STARTED AT 50CC/HOUR PER PUMP. 1230-REGULAR LUNCH TRAY SERVED. 1410-FIRST UNIT COMPLETE AND LINE FLUSHING. 1420-SECOND UNIT OF BLOOD STARTED AT 75CC/HR 1540-BLOOD COMPLETED AND LINE FLUSHED 1550-IV D/C AND DISCHARGE INSTRUCTIONS REVIEWED. PT REMINDED TO KEEP BLOOD BAND ON X 72 HOURS. 1610-D/C HOME AMBULATORY.
== END 2018-11-04 16:35 | disposition home or self-care (01) ==
LOC: D.OPS 08:01 → D.PAN 12:00 → D.OPS 12:00
PROVIDERS: Anesthesiology; ATTEND Urology
DX: N40.1 Benign prostatic hyperplasia with lower urinary tract symptoms (principal); N13.8 Other obstructive and reflux uropathy

== ENCOUNTER 2018-11-04 21:02 | Emergency (ER) | payer MEDICARE, OTHER ==
[~2018-11-04] VITALS: Ht 185.4 cm; Wt 79.1 kg
[2018-11-04 21:07] VITALS: Ht 185.4 cm; Wt 79.1 kg
[2018-11-04 23:28] VITALS: BP 109/58
== END 2018-11-04 23:28 | disposition home or self-care (01) ==
LOC: D.ER 21:02
DX: T83.098A Other mechanical complication of other urinary catheter, initial encounter (principal); Y83.9 Surgical procedure, unspecified as the cause of abnormal reaction of the patient, or of later complication, without mention of misadventure at the time of the procedure; E11.9 Type 2 diabetes mellitus without complications

== ENCOUNTER 2018-11-05 06:24 | Inpatient (IN) | payer MEDICARE, OTHER ==
[~2018-11-05] VITALS: Ht 185.4 cm; Wt 78.9 kg
--- NOTE | 2018-11-05 07:04 | NUR ---
IRRIGATED ADLER CATHETER WITH 250 ML OF NS WITH 400 ML OF BLOODY URINE RETURN, MANY CLOTS NOTED AT THE BEGINNING WITH NO OBSTRUCTION AFTER FINAL IRRIGATION. PT TOLERATED WELL. CATHETER RESECURED TO THIGH.
--- NOTE | 2018-11-05 07:06 | NUR ---
REPORT GIVEN TO JANET FELIPE.
[2018-11-05 07:13] LABS: ALBUMIN 2.3 g/dL (3.4-5.0); ALKALINE PHOSPHATASE 64 U/L (46-116); ALT (SGPT) 13 U/L (10-68); BILIRUBIN - TOTAL 0.24 mg/dL (0.2-1.3); CALC OSMOLALITY 279 mosm/kg (275-300); CALCIUM 8.2 mg/dL (8.5-10.1); CARBON DIOXIDE 26.7 mmol/L (21.0-32.0); CHLORIDE - SERUM 103 mmol/L (98-107); GLUCOSE 184 mg/dL (74-106); POTASSIUM - SERUM 3.9 mmol/L (3.5-5.1); PROTEIN - SERUM 5.3 g/dL (6.4-8.2); SODIUM 138 mmol/L (136-145); eGFR NON AFRICAN AMERICAN 75 mL/min (90-120)
[2018-11-05 07:17] LABS: UREA NITROGEN 11 mg/dL (7-18)
--- NOTE | 2018-11-05 07:55 | NUR ---
RECEIVED FROM ED VIA STRETCHER WITH ADLER CATH SHOWING BLOODY URINE IN BAG. SALINE LOCK PIV SEEN TO RIGHT AC. WILL ADMIT.
[2018-11-05 08:00] LABS: APPEARANCE TURBID (CLEAR); COLOR RED (YELLOW)
[2018-11-05 08:02] LABS: RED CELLS - URINE >50 /hpf (0-5); WHITE CELLS - URINE OCC /hpf (0-5)
[2018-11-05 08:03] LABS: BACTERIA MODERATE /hpf (NONE SEEN); EPITHELIAL CELLS OCC /hpf (0-5); MUCUS <1+ /lpf (NONE SEEN)
[2018-11-05 08:23] VITALS: BP 135/68; BMI 23.0
[2018-11-05 08:46] LABS: BASOPHILS 0.4 % (0-2); EOSINOPHILS 0.9 % (0-7); IMMATURE GRANULOCYTES 0.4 % (0-5); LYMPHOCYTES 21.4 % (15-50); MCH 29.3 pg (26.0-34.0); MCHC 33.5 g/dL (31.0-37.0); MCV 87.5 fL (80.0-100.0); MEAN PLATELET VOLUME 9.9 fL (7.4-10.4); MONOCYTES 11.8 % (2-11); NEUTROPHILS 65.1 % (40-80); PLATELET COUNT 392 10x3/uL (130-400); RDW 15.5 % (11.5-14.5); WBC 7.1 10x3/uL (4.8-10.8)
[2018-11-05 08:47] LABS: HEMATOCRIT 23.9 % (42.0-54.0); RBC 2.73 10x6/uL (4.20-6.10)
[2018-11-05 08:59] VITALS: BP 135/72
--- NOTE | 2018-11-05 09:50 | NUR ---
DR TANG IN TO SEE PATIENT. NEW ORDERS RECEIVED. I CALLED [facility] IN [facility]IES.
--- NOTE | 2018-11-05 11:23 | NUR ---
USING STERILE TECHNIQUE, DOLEY CATH REMOVED AND NEW [address] WAY PLACED WITH 30 CC BULB. HOOKED TO CONTINIOUS IRRIGATION. TOLERATED WELL.
--- NOTE | 2018-11-05 13:14 | NUR ---
1312-/2 UNITS STARTED TO TRANSFUSE AT 125 CC/HR. WILL MONITOR. CONTINIOUS IRRIGATION IS STILL GOING, URINE IS GETTING EMBOSSOGRAPH OPERATOR IN COLOR. NO CLOTS. DENIES NEEDS.
[2018-11-05 16:17] VITALS: BP 162/81
--- NOTE | 2018-11-05 17:05 | NUR ---
FIRST UNIT DONE. 2/2 BLOOD STARTED SLOWLY AT 125 CC/HR.
[2018-11-05 20:00] VITALS: BP 175/85
--- NOTE | 2018-11-05 20:20 | NUR ---
INITIAL ROUNDS COMPLETED AT 1900 HRS. PT DENIED ANY DISCOMFORT. AT BEDSIDE. ASSESSMENT COMPLETED AT 1945 HRS. 2ND UNIT OF BLOOD COMPLETED AT 1940 HRS. NO REACTION NOTED. ALERT AND ORIENTED TO PERSON, PLACE AND TIME. GOMEZ. IV TO RAC WITH NS AT 100CC/HR. IV PATENT. LUNGS ESSENTIALLY CTA. ABD SOFT WITH ACTIVE BS NOTED. STERI STIPS NOTED TO SMALL INCISION TO MID UPPER ABD. 3WAY ADLER IN USE IRRIGATING WITH NS. PINK URINE RETURN. CM DENOTES SR HR 78. SR UP X2, CALL LIGHT WITHIN REACH.
--- NOTE | 2018-11-05 22:40 | NUR ---
PT RESTING WITH EYES CLOSED. RESP EVEN AND REGULAR. SR UP X2, CALL LIGHT WIHTIN REACH.
--- NOTE | 2018-11-06 00:25 | NUR ---
PT RESTING WITH EYES CLOSED. RESP EVEN AND REGULAR. SR UP X2, CALL LIGHT WITHIN REACH.
[2018-11-06 00:30] VITALS: BP 149/72
--- NOTE | 2018-11-06 01:59 | NUR ---
PT RESTING WITH EYES CLOSED. RESP EVEN AND REGULAR. SR UP X2, CALL LIGHT WITHIN REACH.
--- NOTE | 2018-11-06 04:22 | NUR ---
PT AWAKE; DENIES ANY DISCOMFORT. ADLER DRAINING BLOODY URINE. CONTINUOUS NS IRRIGATION IN PROGRESS. SR UP X2, CALL LIGHT WITHIN REACH.
[2018-11-06 04:30] VITALS: BP 144/58
[2018-11-06 05:50] LABS: BASOPHILS 0.6 % (0-2); EOSINOPHILS 7.1 % (0-7); HEMATOCRIT 27.8 % (42.0-54.0); HEMOGLOBIN 9.6 g/dL (13.5-17.5); IMMATURE GRANULOCYTES 0.3 % (0-5); LYMPHOCYTES 22.5 % (15-50); MCH 29.7 pg (26.0-34.0); MCHC 34.5 g/dL (31.0-37.0); MCV 86.1 fL (80.0-100.0); MEAN PLATELET VOLUME 9.9 fL (7.4-10.4); MONOCYTES 16.7 % (2-11); NEUTROPHILS 52.8 % (40-80); RBC 3.23 10x6/uL (4.20-6.10); RDW 15.3 % (11.5-14.5); WBC 6.2 10x3/uL (4.8-10.8)
[2018-11-06 06:04] LABS: ALBUMIN 2.1 g/dL (3.4-5.0); ALKALINE PHOSPHATASE 65 U/L (46-116); CALCIUM 8.1 mg/dL (8.5-10.1); CARBON DIOXIDE 27.4 mmol/L (21.0-32.0); CHLORIDE - SERUM 107 mmol/L (98-107); CREATININE - SERUM 0.9 mg/dL (0.6-1.3); PROTEIN - SERUM 5.3 g/dL (6.4-8.2); SODIUM 142 mmol/L (136-145); UREA NITROGEN 10 mg/dL (7-18); eGFR NON AFRICAN AMERICAN 84 mL/min (90-120)
[2018-11-06 06:07] LABS: PLATELET COUNT 285 10x3/uL (130-400)
[2018-11-06 06:08] LABS: ALT (SGPT) 8 U/L (10-68); CALC OSMOLALITY 283 mosm/kg (275-300); GLUCOSE 135 mg/dL (74-106); POTASSIUM - SERUM 3.2 mmol/L (3.5-5.1)
--- NOTE | 2018-11-06 06:44 | NUR ---
VSS THROUGHOUT NIGHT. SR PER CM. PT DENIED ANY DISCOMFORT. NEEDS MET; WILL CONTINUE TO MONITOR.
--- NOTE | 2018-11-06 07:30 | NUR ---
ASSESSMENT COMPLETED. ALERT AND ORIENTED. TELEMERTY SHOWS SR 70. RIGHT AC IV WITH NS AT 100. ADLER CATH WITH CONTINOUS IRRIGATION. DENIES ANY NEEDS. SR UP WITH CALL LIGHT IN REACH. WILL MONITOR
--- NOTE | 2018-11-06 08:24 | NUR ---
ASSESSMENT COMPLETED. ALERT AND ORIENTED. TELELEMERTY SHOWS SR 70. RIGHT AC IV WITH NS AT 100. PT HAS A 3 WAY CATH WITH NS IRRAGATION. URINE BLOODY. DENIES ANY NEEDS. WILL MONITOR
[2018-11-06 08:43] VITALS: BP 155/81
[2018-11-06 12:13] VITALS: BP 155/73
--- NOTE | 2018-11-06 18:38 | NUR ---
HOB UP VISITING WITH . ADLER CATH WITH CONTINOUS DRAINAGE DRAING GOOD, TELEMERTY SHOWS SR. WILL MONITOR
--- NOTE | 2018-11-06 19:14 | NUR ---
INITIAL ROUNDS COMPLETED. PT DENIED ANY DISCOMFORT. AT BEDSIDE. SR UP X2, CALL LIGHT WITHIN REACH.
[2018-11-06 20:00] VITALS: BP 172/85
--- NOTE | 2018-11-06 20:00 | NUR ---
ASSESSMENT COMPLETED AT 1935 HRS. VSS. SR PER CM HR 75. ALERT AND ORIENTED TO PERSON, PLACE AND TIME. GOMEZ. LUNGS DIMINISHED IN BASES BILAT. IV TO RAC WITH NS AT 100CC/HR. IV PATENT. STERI STRIPS NOTED TO UPPER MED ABD. ABD SOFT, WITH ACTIVE BS NOTED. 3WAY FOLEYWITH CONTINUOUS NS IRRIGATION DRAINING PINK URINE. DENIES ANY DISCOMFORT. AT BEDSIDE. SR UP X2, CALL LIGHT WITHIN REACH.
--- NOTE | 2018-11-06 21:28 | NUR ---
FSBS 189. 2 UNITS REG INSULIN GIVEN SUB-Q TO UPPER R ARM. ORANGE JUICE GIVEN PER REQUEST. SR UP X2, CALL LIGHT WITHIN REACH.
--- NOTE | 2018-11-06 22:52 | NUR ---
PT INCONTINENT OF LARGE AMOUNT OF BROWN STOOL. INCONTINENT CARE DONE. SR UP X2,CALL LIGHT WITHIN REACH AND HIME CPAP IN USE.
[2018-11-07] VITALS: BP 174/89
--- NOTE | 2018-11-07 00:18 | NUR ---
PT RESTING WITH EYES CLOSED. RESP EVEN AND REGULAR. SR UP X2, CALL LIGHT WITHIN REACH.
--- NOTE | 2018-11-07 02:17 | NUR ---
PT AWAKE;DENIES ANY DISCOMFORT. SR UP X2, CALL LIGHT WITHIN REACH.
[2018-11-07 04:00] VITALS: BP 153/78
--- NOTE | 2018-11-07 04:04 | NUR ---
PT AWAKE; DENIES ANY DISCOMFORT. SR UP X2, CALL LIGHT WITHIN REACH.
[2018-11-07 06:02] LABS: HEMOGLOBIN 10.2 g/dL (13.5-17.5); LYMPHOCYTES 22.5 % (15-50); MCH 30.1 pg (26.0-34.0); MEAN PLATELET VOLUME 9.8 fL (7.4-10.4); NEUTROPHILS 53.4 % (40-80); PLATELET COUNT 263 10x3/uL (130-400); RBC 3.39 10x6/uL (4.20-6.10); RDW 15.7 % (11.5-14.5); WBC 5.9 10x3/uL (4.8-10.8)
[2018-11-07 06:03] LABS: MCV 88.5 fL (80.0-100.0)
--- NOTE | 2018-11-07 06:15 | NUR ---
VSS THROUGHTOUT NIGHT. SR PER CM. PT DNEID ANY DISCOMFORT. NEEDS MET; WILL CONTINUE TO MONITOR.
[2018-11-07 06:38] LABS: ALBUMIN 2.3 g/dL (3.4-5.0); ALKALINE PHOSPHATASE 69 U/L (46-116); ALT (SGPT) 10 U/L (10-68); BILIRUBIN - TOTAL 0.39 mg/dL (0.2-1.3); CALCIUM 8.2 mg/dL (8.5-10.1); CARBON DIOXIDE 28.3 mmol/L (21.0-32.0); CHLORIDE - SERUM 105 mmol/L (98-107); CREATININE - SERUM 0.8 mg/dL (0.6-1.3); GLUCOSE 127 mg/dL (74-106); PROTEIN - SERUM 5.4 g/dL (6.4-8.2); SODIUM 140 mmol/L (136-145); eGFR NON AFRICAN AMERICAN > 90 mL/min (90-120)
[2018-11-07 06:42] LABS: CALC OSMOLALITY 278 mosm/kg (275-300); POTASSIUM - SERUM 3.7 mmol/L (3.5-5.1); UREA NITROGEN 7 mg/dL (7-18)
--- NOTE | 2018-11-07 07:43 | NUR ---
ASSESSMENT COMPLETED. ALERT AND ORIENTED. TELEMERTY SHOWS SR 83. RIGHT AC IV WITH NS AT 100. ADLER CATH WITH CONTINOUS IRRIGATION. URIN IS NOW PINKISH. VANII STRIPS TO NURA. SOLANGEITSANDRA AT BEDSIDE
[2018-11-07 09:06] VITALS: BP 141/68
[2018-11-07 11:43] VITALS: BP 162/78
--- NOTE | 2018-11-07 14:40 | NUR ---
I have reviewed this patient and I concur with the Shift Assessment completed by the Licensed Practical Nurse today this shift.
[2018-11-07 20:00] VITALS: BP 166/89
--- NOTE | 2018-11-07 20:07 | NUR ---
INITAIL ROUNDS COMPLETED AT 1910 HRS. PT DENIED ANY DISCOMFORT. ASSESSMENT COMPLETED AT 1945 HRS. VSS. SR PER CM HR 76. ALERT AND ORIENTED TO PERSON,PLACE AND TIME. GOMEZ. PALPABLE PERIPHERAL PULSES. LUNGS CTA. ABD SOFT WITH ACTIVE BS NOTED. STERI STRIPS NOTED TO UPPER MID ABD CLEAN, DRY AND INTACT. [address] ADLER WITH CONTINUOUS NS IRRIGATION IN PROGRSS. ADLER DRAINING PINK COLORED URINE. SR UP X2, CALL LIGHT WITHIN REACH.
--- NOTE | 2018-11-07 21:22 | NUR ---
PM MEDS GIVEN. SFSBS 174. 2 UNITS HUMALOG GIVEN SUB-Q TO UPPER R ARM. ORANGE JUICE GIVEN PER REQUEST. SR UP X2, CALL LIGHT WITHIN REACH.
--- NOTE | 2018-11-07 22:09 | NUR ---
PT RESTING WITH EYES CLOSED. RESP EVEN AND REGULAR. SR UP X2, CALL LIGHT WITHIN REACH.
--- NOTE | 2018-11-07 23:51 | NUR ---
PT RESTING WITH EYES CLOSED. RESP EVEN AND REGULAR. SR UP X2, CALL LIGHT WITHIN REACH.
[2018-11-08 00:14] VITALS: BP 161/78
--- NOTE | 2018-11-08 02:08 | NUR ---
PT RESTING WITH EYES CLOSED. RESP EVEN AND REGULAR. SR UP X2, CALL LIGHT WITHIN REACH.
--- NOTE | 2018-11-08 04:07 | NUR ---
PT RESTING WITH EYES CLOSED. RESP EVEN AND REGULAR. SR UP X2, CALL LIGHT WITHIN REACH.
[2018-11-08 04:15] VITALS: BP 131/79
[2018-11-08 05:41] LABS: HEMATOCRIT 29.5 % (42.0-54.0); HEMOGLOBIN 9.8 g/dL (13.5-17.5); MCH 28.9 pg (26.0-34.0); MCHC 33.2 g/dL (31.0-37.0); MEAN PLATELET VOLUME 9.6 fL (7.4-10.4); PLATELET COUNT 269 10x3/uL (130-400); RBC 3.39 10x6/uL (4.20-6.10); RDW 15.5 % (11.5-14.5); WBC 6.1 10x3/uL (4.8-10.8)
[2018-11-08 06:11] LABS: ALBUMIN 2.1 g/dL (3.4-5.0); ALKALINE PHOSPHATASE 76 U/L (46-116); ALT (SGPT) 11 U/L (10-68); BILIRUBIN - TOTAL 0.33 mg/dL (0.2-1.3); CALC OSMOLALITY 278 mosm/kg (275-300); CALCIUM 8.1 mg/dL (8.5-10.1); CARBON DIOXIDE 27.8 mmol/L (21.0-32.0); CHLORIDE - SERUM 105 mmol/L (98-107); CREATININE - SERUM 0.8 mg/dL (0.6-1.3); GLUCOSE 145 mg/dL (74-106); POTASSIUM - SERUM 3.4 mmol/L (3.5-5.1); PROTEIN - SERUM 5.6 g/dL (6.4-8.2); SODIUM 139 mmol/L (136-145); UREA NITROGEN 7 mg/dL (7-18); eGFR NON AFRICAN AMERICAN > 90 mL/min (90-120)
--- NOTE | 2018-11-08 06:39 | NUR ---
VSS THROUGHOUT NIGHT. PT DENIED ANY DISCOMFORT. AM K+ 3.4. KCL 40 MEQ PO GIVEN PER ELECTROLYTE PROTOCOL. NEEDS MET; WILL CONTINUE TO MONTIOR.
[2018-11-08 07:57] LABS: BASOPHILS 1 % (0-2); EOSINOPHILS 7 % (0-7); HYPOCHROMASIA 1+; LYMPHOCYTES 28 % (15-50); MONOCYTES 6 % (2-11); NEUTROPHILS 58 % (40-80); PLATELET ESTIMATE NORMAL; ROULEAUX 2+
[2018-11-08 08:25] VITALS: BP 144/80
--- NOTE | 2018-11-08 08:29 | NUR ---
ASSESSMENT DONE. DENIES NEEDS.
[2018-11-08 11:43] VITALS: BP 145/74
--- NOTE | 2018-11-08 15:00 | NUR ---
ADLER CATH DCD PER ORDER
[2018-11-08 16:45] VITALS: BP 173/94
--- NOTE | 2018-11-08 19:30 | NUR ---
REPORT RECIEVD AND ROUNDING COMPLETE. IN ROOM WITH THAD RITCHIE WHILE DOING BLADDER SCANNER. BLADDER SCANNER SHOWING 0000ML IN BLADDER AT THIS TIME. PATIENT IS COMPLAINING OF ABD PAIN. PATIENTS ABD IS DISTENDED AND FIRM, PATIENT STATES IT IS TENDER WHEN PALPATED. DR. BORJAS IN THE ROOM AND STATES IF HE DOESNOT URINATED IN THE NEXT TWO HOURS WE WILL HAVE TO INSERT ANOTHER ADLER. PATIENT HAS A RIGHT AC WITH NS RUNNING AT 100 ML/HR. PATIENT AND STATE THEY HAVE NO OTHER NEEDS AT THIS TIME, CALL LIGHT WITHIN REACH AND BED IN LOWEST POSITION.
--- NOTE | 2018-11-08 19:45 | NUR ---
COMES OUT AND ASKS IF WE CAN JUST PUT THE ADLER CATH IN THAT HER IS GETTING REALLY UNCOMFORTABLE AT THIS TIME. I PAGED DR. TANG.
--- NOTE | 2018-11-08 19:55 | NUR ---
DR. TANG CALLS BACK AND GIVE ME AN ORDER TO PUT IN A 16 SOUTH AFRICAN ADLER.
[2018-11-08 20:00] VITALS: BP 172/92
--- NOTE | 2018-11-08 21:10 | NUR ---
CALLED DR. TANG TO INFORM HIM THAT WHEN PUTTING IN 16 NAURUAN ADLER THERE WASNO RESISTANCE AND NO URINE RETURN, THERE WAS WHAT APPEARED TO BE A BLOOD CLOT AT THE END OF THE ADLER CATH. DR. TANG THEN STATED THAT I NEEDED TO PUT IN A 20 NAURUAN ADLER CATH AND PERFORM MANNUAL IRRAGATION. CALLED [facility] TO GET ME A 20 NAURUAN.
--- NOTE | 2018-11-08 21:40 | NUR ---
ADMINISTER PAIN MEDS PER MAR AND CHARGE NURSE JANET MONTALVO IN ROOM TO ASSIST. WHEN INSERTING THE 20 UKRAINIAN THERE WAS NO RESISTANCE AND THERE WAS URINE RETURN, NOT MUCH BUT YELLOW URINE, THEN THE URINE JUST STOPPED. ELECTRIC SWITCH REPAIRER JANE THEN IRRAGATED THE BLADDER AND WHEN DRAWING BACK THE RETURN WAS RED IN COLOR BUT NO CLOTS. SELVIN GONZALES ADVISED TO CALL DR. TANG BACK ASK WHAT TO DO.
--- NOTE | 2018-11-08 21:50 | NUR ---
ASSISTED MAGGIE RITCHIE WITH INSERTION OF 20 FR ADLER CATHETER. DURING THE INSERTION THERE WAS NO RESISTANCE. MAGGIE INFLATED BALLOON. I THEN ATEMPTED TO MANUALLY IRRIGATED BLADDER WHEN DRAWING BACK SYRINGE WAS RED TINGED BUT NOT CLOTS I PERFORMED X 2 AND ADVISED MAGGIE RITCHIE TO CALL AND INFORM UROLOGIST.
--- NOTE | 2018-11-08 22:00 | NUR ---
CAME TO NURSES STATION EXTREMELY COMCERNED ASKING IF THE UROLOGIST. JIMENEZ SPOKE WITH ALL QUESTIONS ANSWERED. WENT BACK TO ROOM.
--- NOTE | 2018-11-08 22:15 | NUR ---
CAME TO NURSES STATION STATING THAT HE WAS IN ALOT OF PAIN AND DEMAND THAT A DOCTOR "GET THERE ASS HERE. BECAUSE IF ANYTHING HAPPENED TO HER THERE WOULD BE A LAWSUIT." WENT TO BACK TO ROOM. I CALLED SERVICE CREW SUPERVISOR AND DISCUSSED SITUATION. WHILE ON PHONE WITH SERVICE CREW SUPERVISOR CAME BACK TO NURSES STATION WANTING TO KNOW WHO WAS IN CHARGE. I EXPLAINED THAT I WAS THE CHARGE NURSE AND THAT I WAS TALKING TO THE SERVICE CREW SUPERVISOR. WENT BACK TO ROOM.
--- NOTE | 2018-11-08 22:50 | NUR ---
DR. TANG STATED TO MAKE THE PATIENT NPO AT MIDNIGHT AND HAVE CONSENT SIGNED FOR SURGERY.
--- NOTE | 2018-11-08 22:55 | NUR ---
CAME TO NURSES STATION AND DEMANDED THAT HER BE TRANSFERED TO [facility]. STATED THAT SHE DIDN'T BELIEVE THAT HER WAS NOT BEING THE MEDICAL CARE THAT HE NEEDED HERE. SHE WANTED HIM TRANSFERED IMMEDIATELY. I EXPLAINED TO THE PATIENT THAT I WOULD CALL THE RISK COMPLIANCE ANALYST. I CALLED RISK COMPLIANCE ANALYST. MADY TOOK OVER
--- NOTE | 2018-11-08 22:55 | NUR ---
PATIENT'S STATES SHE WANTS HIM TRANSFERED TO [facility]. ANALILIA STATES SHE WILL TAKE OVER FROM HERE.
[2018-11-09 00:02] VITALS: BP 122/93
[2018-11-09 00:31] LABS: HEMATOCRIT 32.5 % (42.0-54.0); HEMOGLOBIN 11.1 g/dL (13.5-17.5); MCH 30.3 pg (26.0-34.0); MCV 88.8 fL (80.0-100.0); RBC 3.66 10x6/uL (4.20-6.10); WBC 9.3 10x3/uL (4.8-10.8)
[2018-11-09 00:32] LABS: LYMPHOCYTES 12.7 % (15-50); MCHC 34.2 g/dL (31.0-37.0); MEAN PLATELET VOLUME 9.8 fL (7.4-10.4); PLATELET COUNT 300 10x3/uL (130-400); RDW 15.6 % (11.5-14.5)
[2018-11-09 04:08] VITALS: BP 152/90
--- NOTE | 2018-11-09 04:15 | NUR ---
I have reviewed this patient and I concur with the Shift Assessment completed by the Licensed Practical Nurse today this shift.
[2018-11-09 06:36] LABS: ANION GAP 11.7 mmol/L (8-16); CARBON DIOXIDE 27.6 mmol/L (21.0-32.0); CREATININE - SERUM 1.2 mg/dL (0.6-1.3); POTASSIUM - SERUM 4.3 mmol/L (3.5-5.1)
[2018-11-09 06:37] LABS: ALBUMIN 2.3 g/dL (3.4-5.0); BILIRUBIN - TOTAL 0.25 mg/dL (0.2-1.3); CALCIUM 8.9 mg/dL (8.5-10.1); PROTEIN - SERUM 6.1 g/dL (6.4-8.2)
--- NOTE | 2018-11-09 06:45 | NUR ---
ASSESSMENT DONE. DENIES NEEDS
[2018-11-09 07:05] LABS: BASOPHILS 0.2 % (0-2); EOSINOPHILS 0.1 % (0-7); HEMOGLOBIN 10.4 g/dL (13.5-17.5); IMMATURE GRANULOCYTES 0.4 % (0-5); LYMPHOCYTES 13.8 % (15-50); MCH 29.3 pg (26.0-34.0); MCHC 33.5 g/dL (31.0-37.0); MCV 87.3 fL (80.0-100.0); MEAN PLATELET VOLUME 10.2 fL (7.4-10.4); MONOCYTES 10.3 % (2-11); NEUTROPHILS 75.2 % (40-80); PLATELET COUNT 299 10x3/uL (130-400); RBC 3.55 10x6/uL (4.20-6.10); RDW 15.5 % (11.5-14.5)
[2018-11-09 07:55] VITALS: BP 134/77
--- NOTE | 2018-11-09 09:16 | OP ---
PATIENT NAME: TYLER GIBBS MEDICAL RECORD: [id number] :[birth year] LOCATION:D.M2 D.2124 ADMISSION DATE:11/05/18 SURGEON: EDUIN TANG MD DATE OF OPERATION: 11/09/2018 SURGEON: Eduin Tang MD ANESTHESIA: General anesthesia by Gayathri Spivey CRNA. DIAGNOSIS: Clot urinary retention. PROCEDURE: Cystoscopy, bladder clot evacuation, fulguration of bleeders, Santana catheter insertion over a guidewire. BLOOD LOSS: Minimal. SPECIMENS: None. CLINICAL HISTORY: This is an 88-year-old male, who has a history of gallstone pancreatitis as well as C. difficile colitis. He was also found to be in urinary retention with acute bilateral hydroureteronephrosis causing acute renal failure. He had the UroLift procedure times 6 implants about a week ago. He had issues with postoperative bleeding and he had an indwelling Santana catheter placed. This catheter plugged up and he was converted to continuous bladder irrigation. Earlier this morning, it appeared to me that the irrigation was looking very clear and I decided to pull the Santana catheter out for a voiding trial. He was unable to void and later this evening, the floor nurse attempted to put a Santana catheter in and the catheter she put in did not get any urine out. He is very uncomfortable at this point and we are going to go in with the scope to determine the cause of the catheter not functioning. He was given Ancef 2 grams IV correspondence dictator to the OR. He is not allergic to any medications. DESCRIPTION OF PROCEDURE: The patient was given induction of general anesthesia. He was placed into lithotomy position and prepped and draped. A 21-Telugu cystoscope with 30-degree lens was used for visualization. Going into the penile urethra, there was some irritation in the bulbar urethra from where the Santana catheter balloon had been inflated. However, there was no injury to the bulbar urethra. Going farther in to the prostate, blood clots were seen. Within the bladder, large quantities of blood clots were seen. The Ellik evacuator was used to completely remove all of the blood clots. Looking with the scope, we could see some venous bleeding coming from the anterior fibromuscular stroma of the prostatic urethra. We introduced the Bugbee electrode and all bleeding areas were coagulated. Finally, a Sensor wire was placed into the bladder through the cystoscope. The scope was then removed, leaving the wire in place. Over the wire, a noatak tip 22-Telugu 3-way Santana catheter was introduced. Once the catheter was fully in the bladder, the balloon was inflated with 20 cc of sterile water. The wire was removed entirely. Continuous bladder irrigation with normal saline was started. TRANSINT:[id number] Voice Confirmation ID: [id number] DOCUMENT ID: [id number] OPERATIVE REPORT [id number] TYLER GIBBS, EDUIN Moya MD at 0916 CC: [id number] DICTATION DATE: 11/09/18216 HOTEL RECREATIONAL FACILITIES MANAGER: 11/09/18 0301 ADM IN [facility] [address] [place] [address]
--- NOTE | 2018-11-09 12:23 | MORECARE ---
CASE MANAGEMENT DISCHARGE SUMMARY PATIENT: YTLER GIBBS UNIT: [id number] ADM DATE: 11/05/18 AGE: 88 : [birth year] SEX: M ROOM/BED: D.2124 AUTHOR: FIDE LOFTON PHYSICIAN: REFERRING PHYSICIAN: GISEL GREENFIELD MD DATE OF SERVICE: 11/09/18 Discharge Plan Patient Name: TYLER GIBBS [facility] [facility] 1930 Planned Disposition: Acute Care Hospital Anticipated Discharge Date: 11/09/18 Discharge Date: Expected LOS: 4 Initial Reviewer: [id number] Initial Review Date: 11/05/2018 Generated: 11/09/18 1:23 pm Coverage Notice Reviewer: [id number] - Jose D Summers Notice Issued Date-Time: 11/09/2018 12:05 Notice Type: IM Discharge Notice Notice Delivered To: Patient Relationship to Patient: Staff Trainer Name: Delivery Method: HAND - Hand Delivered Latesha Days: Prior Verbal Notification: Recipient Understood Notice: Yes Recipient Signature: Yes Med Rec Note Co-signed by Attending: Coverage Notice Comment: Patient Name: TYLER GIBBS Page [id number] at 1223 All edits/amendments must be made on the electronic document DICTATION DATE: 11/09/18 1223 CAN STRIPER: FAMILIA 11/09/18 1223 RPT#: [id number] DC DATE: STATUS: ADM IN [place] [address] [place] [address] END OF REPORT
[2018-11-09 12:25] VITALS: BP 147/70
--- NOTE | 2018-11-09 12:30 | MORECARE ---
CASE MANAGEMENT DISCHARGE SUMMARY PATIENT: TYLER GIBBS UNIT: [id number] ADM DATE: 11/05/18 AGE: 88 : [birth year] SEX: M ROOM/BED: D.2124 AUTHOR: ROLLYDOC PHYSICIAN: REFERRING PHYSICIAN: GISEL GREENFIELD MD DATE OF SERVICE: 11/09/18 Discharge Plan Patient Name: TYLER GIBBS Facility: [facility]:[place] : 1930 Planned Disposition: Acute Care Hospital Anticipated Discharge Date: 11/09/18 Discharge Date: Expected LOS: 4 Initial Reviewer: [email or web address] Initial Review Date: 11/05/2018 Generated: 11/09/18 1:30 pm DCPIA - Discharge Planning Initial Assessment Updated by [id number]: Jose D Summers on 11/09/18 12:26 pm * Is the patient Alert and Oriented? Yes * How many steps to enter\exit or inside your home? 0-O / 12-I * PCP [facility], RICKI SEVILLA REPORTS HAVING APPOINTMENT FOR NEW PRIMARY CARE, DR. ALEJANDRA, IN DECEMBER * [facility] #[facility] * Preadmission Environment Home with Family * ADLs Independent * Equipment CPAP Walker * Other Equipment [facility] - MEDICAL EQUIPMENT PROVIDER * List name and contact numbers for known caregivers / representatives who currently or will assist patient after discharge: JYOTI GIBBS, SPOUSE, * Verbal permission to speak to the caregivers and representatives has been obtained from the patient. Yes * Community resources currently utilized Home Health * Please name any agencies selected above. [facility] * Additional services required to return to the preadmission environment? Yes * Can the patient safely return to the preadmission environment? Yes * Has this patient been hospitalized within the prior 30 days at any hospital? Yes Coverage Notice Reviewer: [id number] - Jose D Summers Notice Issued Date-Time: 11/09/2018 12:05 Notice Type: IM Discharge Notice Notice Delivered To: Patient Relationship to Patient: Welder Oxyhydrogen Name: Delivery Method: HAND - Hand Delivered Latesha Days: Prior Verbal Notification: Recipient Understood Notice: Yes Recipient Signature: Yes Med Rec Note Co-signed by Attending: Coverage Notice Comment: Last DP export: 11/09/18 11:23 a Patient Name: TYLER GIBBS Page [id number] at 1230 All edits/amendments must be made on the electronic document DICTATION DATE: 11/09/18 1230 BUMPER MACHINE OPERATOR: FAMILIA 11/09/18 1230 RPT#: [id number] DC DATE: STATUS: ADM IN [facility] [address] [place] [address] END OF REPORT
--- NOTE | 2018-11-09 12:39 | MORECARE ---
CASE MANAGEMENT DISCHARGE SUMMARY PATIENT: TYLER GIBBS UNIT: [id number] ADM DATE: 11/05/18 AGE: 88 : [birth year] SEX: M ROOM/BED: D.9006 AUTHOR: ROLLYDOC PHYSICIAN: REFERRING PHYSICIAN: GISEL GREENFIELD MD DATE OF SERVICE: 11/09/18 Discharge Plan Patient Name: TYLER GIBBS Facility: [facility]:[place] : 1930 Planned Disposition: Acute Care Hospital Anticipated Discharge Date: 11/09/18 Discharge Date: Expected LOS: 4 Initial Reviewer: [email or web address] Initial Review Date: 11/05/2018 Generated: 11/09/18 1:39 pm Comments DCP- Discharge Planning Updated by [email or web address]: Jose D Summers on 11/09/18 11:[address] Patient Name: TYLER GIBBS Admission Status: ER Accout number: [id number] Admission Date: 11-05-2018 : 1930 Admission Diagnosis: Attending: GISEL GREENFIELD Current LOS: 4 Anticipated DC Date: 11-09-2018 Planned Disposition: Acute Care Hospital Primary Insurance: MEDICARE A & B PLANNED EXTERNAL PROVIDER: [facility] Discharge Planning Comments: CM INFORMED THAT PT WANTS TRASFER TO [facility] IN [place]. CM MET WITH PT AND SPOUSE IN ROOM TO DISCUSS DISCHARGE PLANNING AND NEEDS. TYLER GIBBS provided verbal consent to discuss current and ongoing needs with/in the presence of: SPOUSE, JYOTI. PT REPORTS LIVING AT HOME INDEPENDENTLY WITH HIS . PT HAS CPAP AND WALKER FROM [facility]. PT HAS HOME HEALTH WITH [facility]. CM DISCUSSED AVAILABILITY OF HOME HEALTH, REHAB SERVICES AND MEDICAL EQUIPMENT. PT REPORTS WANTING TRANSFER TO [facility] TO SEE ANOTHER UROLOGIST, PT'S SPOUSE REPORTS THEY WILL FEEL MORE COMFORTABLE WITH HAVING MORE UROLOGISTS TO CARE FOR PT'S NEEDS. CM DISCUSSED THIS REQUEST FOR TRANSFER BEING A "LATERAL" TRANSFER, BOTH REPORT UNDERSTANDING AND ALSO AGREE THAT THEY WILL PAY FOR THE AMBULANCE TRANSPORT TO [facility] IN [place]. PT'S SPOUSE REPORTS THEY HAVE A [employer] MEMBERSHIP THAT MAY ASSIST WITH THE BILL, BUT IF, THEY WILL TAKE CARE OF PAYMENT. IMPORTANT MESSAGE FROM MEDICARE PROVIDED AND EXPLAINED. CM EXPLAINED PROCESS OF TRANSFER TO ANOTHER HOSPITAL. PT AND SPOUSE REPORT THEY HAVE ALREADY TALKED TO DR. BORJAS AND REQUESTED THE TRANSFER. CM WAITING ON PHYSICIAN ORDERS FOR TRANSFER TO CONTINUE WORKING ON THE PROCESS. Credit Controller: Jose D Summers DCPIA - Discharge Planning Initial Assessment Updated by [email or web address]: Jose D Summers on 11/09/18 12:26 pm * Is the patient Alert and Oriented? Yes * How many steps to enter\\exit or inside your home? 0-O / 12-I * PCP [facility], [place]I SE[place]A REPORTS HAVING APPOINTMENT FOR NEW PRIMARY CARE, DR. ALEJANDRA, IN DECEMBER * Pharmacy [facility] #2 * Preadmission Environment Home with Family * ADLs Independent * Equipment CPAP Walker * Other Equipment [facility] - MEDICAL EQUIPMENT PROVIDER * List name and contact numbers for known caregivers / representatives who currently or will assist patient after discharge: JYOTI GIBBS, SPOUSE, * Verbal permission to speak to the caregivers and representatives has been obtained from the patient. Yes * Community resources currently utilized Home Health * Please name any agencies selected above. [facility] * Additional services required to return to the preadmission environment? Yes * Can the patient safely return to the preadmission environment? Yes * Has this patient been hospitalized within the prior 30 days at any hospital? Yes Coverage Notice Reviewer: [id number] - Jose D Summers Notice Issued Date-Time: 11/09/2018 12:05 Notice Type: IM Discharge Notice Notice Delivered To: Patient Relationship to Patient: Digital Media Designer Name: Delivery Method: HAND - Hand Delivered Latesha Days: Prior Verbal Notification: Recipient Understood Notice: Yes Recipient Signature: Yes Med Rec Note Co-signed by Attending: Coverage Notice Comment: Last DP export: 11/09/18 11:30 a Patient Name: TYLER GIBBS Page [phone] at 1239 All edits/amendments must be made on the electronic document DICTATION DATE: 11/09/18 1239 MANAGER CREDIT RISK: FAMILIA 11/09/18 1239 RPT#: [id number] DC DATE: STATUS: ADM IN [facility] [address] [place] [address] END OF REPORT
--- NOTE | 2018-11-09 14:35 | NUR ---
I have reviewed this patient and I concur with the Shift Assessment completed by the Licensed Practical Nurse today this shift.
[2018-11-09 14:46] VITALS: BP 133/74
--- NOTE | 2018-11-09 15:24 | MORECARE ---
CASE MANAGEMENT DISCHARGE SUMMARY PATIENT: TYLER GIBBS UNIT: [id number] ADM DATE: 11/05/18 AGE: 88 : [birth year] SEX: M ROOM/BED: D.5304 AUTHOR: ROLLY,DOC PHYSICIAN: REFERRING PHYSICIAN: GISEL GREENFIELD MD DATE OF SERVICE: 11/09/18 Discharge Plan Patient Name: TYLER GIBBS Facility: [facility]:[place] : 1930 Planned Disposition: Acute Care Hospital Anticipated Discharge Date: 11/09/18 Discharge Date: Expected LOS: 4 Initial Reviewer: [id number] Initial Review Date: 11/05/2018 Generated: 11/09/18 4:24 pm Comments DCP- Discharge Planning Updated by [email or web address]: Jose D Summers on 11/09/18 2:[address] Patient Name: TYLER GIBBS Encounter No: [id number] : 1930 Primary Insurance: MEDICARE A & B Anticipated DC Date: 11-09-2018 Planned Disposition: Acute Care Hospital External Planned Provider: [facility] DCP follow-up note: CM RECEIVED CALL FROM JACOB GIBBS, PT'S SON, , WHO REPORTED BEING UNHAPPY WITH DR. TANG AND THE CARE PT HAS RECEIVED FROM THE DOCTOR. JOVITA SPOKE TO PT AND PT'S SPOUSE IN ROOM, ASKED IF IT IS OK TO SHARE INFORMATION REGARDING PT'S CARE AND TREATMENT WITH JACOB, PT REPORTS TO TELL JACOB ANYTHING HE WANTS TO KNOW. JACOB PLANS TO COMPLAIN TO HOSPITAL ADMINISTRATION. JACOB ASKED ABOUT WHAT THE TREATMENT PLAN IS, JOVITA EXPLANED THAT PT HAS REQUESTED TRANSFER TO [facility] IN [place]. JACOB ASKED CM TO CALL WHEN STATUS OF TRANSFER IS KNOWN. CM RECEIVED ORDER FOR TRANSFER SPOKE TO MICROBIOLOGY TECHNICIAN KARAN WHO INFORMED CM THAT THE DOCTOR WILL NEED TO SPEAK TO [facility] FOR APPROVAL OF TRANSFER. JOVITA LATER RECEIVED MESSAGE FROM MICROBIOLOGY TECHNICIAN KARAN FOR CM TO PROCEED WITH TRANSFER REQUEST. CM CALLED [facility] EAS[facility] ADMIT LINE, , SPOKE TO MIGUEL WHO TOOK INFORMATION FOR TRANSFER REQUEST AND WILL CONTACT [facility]. JOVITA FAXED FACE SHEET AT REQUESTED TO [facility]AS[facility] ADMIT AT [phone]. CM WAITING TRANSFER CENTER TO DETERMINE IF A PHYSICIAN WILL ACCEPT AND IF BED IS AVAILABLE FOR TRANSFER TO [facility]. CM TO CONTINUE TO FOLLOW AND ASSIST NEEDED. Jose D Summers, CASE MANAGEMENT DCP- Discharge Planning Updated by [id number]: Jose D Summers on 11/09/18 11:[address] Patient Name: TYLER GIBBS Admission Status: ER Accout number: [id number] Admission Date: 11-05-2018 : 1930 Admission Diagnosis: Attending: GISEL GREENFIELD Current LOS: 4 Anticipated DC Date: 11-09-2018 Planned Disposition: Acute Care Hospital Primary Insurance: MEDICARE A & B PLANNED EXTERNAL PROVIDER: [facility] Discharge Planning Comments: CM INFORMED THAT PT WANTS TRASFER TO [facility] IN [place]. CM MET WITH PT AND SPOUSE IN ROOM TO DISCUSS DISCHARGE PLANNING AND NEEDS. TYLER GIBBS provided verbal consent to discuss current and ongoing needs with/in the presence of: SPOUSE, JYOTI. PT REPORTS LIVING AT HOME INDEPENDENTLY WITH HIS . PT HAS CPAP AND WALKER FROM [employer] [facility]. PT HAS HOME HEALTH WITH [facility]. CM DISCUSSED AVAILABILITY OF HOME HEALTH, REHAB SERVICES AND MEDICAL EQUIPMENT. PT REPORTS WANTING TRANSFER TO [facility] TO SEE ANOTHER UROLOGIST, PT'S SPOUSE REPORTS THEY WILL FEEL MORE COMFORTABLE WITH HAVING MORE UROLOGISTS TO CARE FOR PT'S NEEDS. CM DISCUSSED THIS REQUEST FOR TRANSFER BEING A "LATERAL" TRANSFER, BOTH REPORT UNDERSTANDING AND ALSO AGREE THAT THEY WILL PAY FOR THE AMBULANCE TRANSPORT TO [facility]. PT'S SPOUSE REPORTS THEY HAVE A [employer] MEMBERSHIP THAT MAY ASSIST WITH THE BILL, BUT IF, THEY WILL TAKE CARE OF PAYMENT. IMPORTANT MESSAGE FROM MEDICARE PROVIDED AND EXPLAINED. CM EXPLAINED PROCESS OF TRANSFER TO ANOTHER HOSPITAL. PT AND SPOUSE REPORT THEY HAVE ALREADY TALKED TO DR. BORJAS AND REQUESTED THE TRANSFER. CM WAITING ON PHYSICIAN ORDERS FOR TRANSFER TO CONTINUE WORKING ON THE PROCESS. Information Technology Assistant: Jose D Summers DCPIA - Discharge Planning Initial Assessment Updated by [id number]: Jose D Summers on 11/09/18 12:26 pm * Is the patient Alert and Oriented? Yes * How many steps to enter\\exit or inside your home? 0-O / 12-I * PCP [facility], RICKI SEVILLA REPORTS HAVING APPOINTMENT FOR NEW PRIMARY CARE, DR. ALEJANDRA, IN [place] * Pharmacy [facility] * Preadmission Environment Home with Family * ADLs Independent * Equipment CPAP Walker * Other Equipment [facility] - MEDICAL EQUIPMENT PROVIDER * List name and contact numbers for known caregivers / representatives who currently or will assist patient after discharge: JYOTI GIBBS, SPOUSE, * Verbal permission to speak to the caregivers and representatives has been obtained from the patient. Yes * Community resources currently utilized Home Health * Please name any agencies selected above. [facility] * Additional services required to return to the preadmission environment? Yes * Can the patient safely return to the preadmission environment? Yes * Has this patient been hospitalized within the prior 30 days at any hospital? Yes Coverage Notice Reviewer: [id number] Torres uSmmers Notice Issued Date-Time: 11/09/2018 12:05 Notice Type: IM Discharge Notice Notice Delivered To: Patient Relationship to Patient: Heel Stiffener Name: Delivery Method: HAND - Hand Delivered Latesha Days: Prior Verbal Notification: Recipient Understood Notice: Yes Recipient Signature: Yes Med Rec Note Co-signed by Attending: Coverage Notice Comment: Last DP export: 11/09/18 11:39 a Patient Name: TYLER GIBBS Page [id number] at 1524 All edits/amendments must be made on the electronic document DICTATION DATE: 11/09/181523 HOME SERVICE ADVISOR: FAMILIA 11/09/181523 RPT#: [id number] DC DATE: STATUS: ADM IN [facility] [address] [place] [address] END OF REPORT
--- NOTE | 2018-11-09 16:40 | MORECARE ---
CASE MANAGEMENT DISCHARGE SUMMARY PATIENT: TYLER GIBBS UNIT: [id number] ADM DATE: 11/05/18 AGE: 88 : [birth year] SEX: M ROOM/BED: D.8494 AUTHOR: ROLLY,DOC PHYSICIAN: REFERRING PHYSICIAN: GISEL GREENFIELD MD DATE OF SERVICE: 11/09/18 Discharge Plan Patient Name: TYLER GIBBS Facility: [facility]:[place] : 1930 Planned Disposition: Acute Care Hospital Anticipated Discharge Date: 11/09/18 Discharge Date: Expected LOS: 4 Initial Reviewer: [id number] Initial Review Date: 11/05/2018 Generated: 11/09/18 5:39 pm Comments DCP- Discharge Planning Updated by [id number]: Jose D Summers on 11/09/18 2:[address] Patient Name: TYLER GIBBS Encounter No: [id number] : 1930 Primary Insurance: MEDICARE A & B Anticipated DC Date: 11-09-2018 Planned Disposition: Acute Care Hospital External Planned Provider: [facility] DCP follow-up note: CM RECEIVED CALL FROM JACOB GIBBS, PT'S SON, , WHO REPORTED BEING UNHAPPY WITH DR. TANG AND THE CARE PT HAS RECEIVED FROM THE DOCTOR. JOVITA SPOKE TO PT AND PT'S SPOUSE IN ROOM, ASKED IF IT IS OK TO SHARE INFORMATION REGARDING PT'S CARE AND TREATMENT WITH JACOB, PT REPORTS TO TELL JACOB ANYTHING HE WANTS TO KNOW. JACOB PLANS TO COMPLAIN TO HOSPITAL ADMINISTRATION. JACOB ASKED ABOUT WHAT THE TREATMENT PLAN IS, JOVITA EXPLANED THAT PT HAS REQUESTED TRANSFER TO [facility] IN [place]. JACOB ASKED CM TO CALL WHEN STATUS OF TRANSFER IS KNOWN. CM RECEIVED ORDER FOR TRANSFER SPOKE TO INSTRUCTOR PRIVATE KARAN WHO INFORMED CM THAT THE DOCTOR WILL NEED TO SPEAK TO [employer] FOR APPROVAL OF TRANSFER. JOVITA LATER RECEIVED MESSAGE FROM INSTRUCTOR PRIVATE KARAN FOR CM TO PROCEED WITH TRANSFER REQUEST. CM CALLED [facility] EASY ADMIT LINE, , SPOKE TO MIGUEL WHO TOOK INFORMATION FOR TRANSFER REQUEST AND WILL CONTACT [facility]. JOVITA FAXED FACE SHEET AT REQUESTED TO [facility] ADMIT AT [phone]. CM WAITING TRANSFER CENTER TO DETERMINE IF A PHYSICIAN WILL ACCEPT AND IF BED IS AVAILABLE FOR TRANSFER TO [facility]. CM TO CONTINUE TO FOLLOW AND ASSIST NEEDED. Jose D Summers, CASE MANAGEMENT DCP- Discharge Planning Updated by [id number]: Jose D Summers on 11/09/18 11:[address] Patient Name: TYLER GIBBS Admission Status: ER Accout number: [id number] Admission Date: 11-05-2018 : 1930 Admission Diagnosis: Attending: GISEL GREENFIELD Current LOS: 4 Anticipated DC Date: 11-09-2018 Planned Disposition: Acute Care Hospital Primary Insurance: MEDICARE A & B PLANNED EXTERNAL PROVIDER: [facility] Discharge Planning Comments: CM INFORMED THAT PT WANTS TRASFER TO [facility] IN [place]. CM MET WITH PT AND SPOUSE IN ROOM TO DISCUSS DISCHARGE PLANNING AND NEEDS. TYLER GIBBS provided verbal consent to discuss current and ongoing needs with/in the presence of: SPOUSE, JYOTI. PT REPORTS LIVING AT HOME INDEPENDENTLY WITH HIS . PT HAS CPAP AND WALKER FROM [employer] [facility]. PT HAS HOME HEALTH WITH [facility]. CM DISCUSSED AVAILABILITY OF HOME HEALTH, REHAB SERVICES AND MEDICAL EQUIPMENT. PT REPORTS WANTING TRANSFER TO [facility] TO SEE ANOTHER UROLOGIST, PT'S SPOUSE REPORTS THEY WILL FEEL MORE COMFORTABLE WITH HAVING MORE UROLOGISTS TO CARE FOR PT'S NEEDS. CM DISCUSSED THIS REQUEST FOR TRANSFER BEING A "LATERAL" TRANSFER, BOTH REPORT UNDERSTANDING AND ALSO AGREE THAT THEY WILL PAY FOR THE AMBULANCE TRANSPORT TO [facility]. PT'S SPOUSE REPORTS THEY HAVE A [employer] MEMBERSHIP THAT MAY ASSIST WITH THE BILL, BUT IF, THEY WILL TAKE CARE OF PAYMENT. IMPORTANT MESSAGE FROM MEDICARE PROVIDED AND EXPLAINED. CM EXPLAINED PROCESS OF TRANSFER TO ANOTHER HOSPITAL. PT AND SPOUSE REPORT THEY HAVE ALREADY TALKED TO DR. BORJAS AND REQUESTED THE TRANSFER. CM WAITING ON PHYSICIAN ORDERS FOR TRANSFER TO CONTINUE WORKING ON THE PROCESS. Emergency Worker: Jose D Summers DCPIA - Discharge Planning Initial Assessment Updated by [id number]: Jose D Summers on 11/09/18 12:26 pm * Is the patient Alert and Oriented? Yes * How many steps to enter\\exit or inside your home? 0-O / 12-I * PCP [facility], [place]I [place]A REPORTS HAVING APPOINTMENT FOR NEW PRIMARY CARE, DR. ALEJANDRA, IN DECEMBER * Pharmacy [facility] * Preadmission Environment Home with Family * ADLs Independent * Equipment CPAP Walker * Other Equipment [facility] - MEDICAL EQUIPMENT PROVIDER * List name and contact numbers for known caregivers / representatives who currently or will assist patient after discharge: JYOTI GIBBS, SPOUSE, * Verbal permission to speak to the caregivers and representatives has been obtained from the patient. Yes * Community resources currently utilized Home Health * Please name any agencies selected above. [facility] * Additional services required to return to the preadmission environment? Yes * Can the patient safely return to the preadmission environment? Yes * Has this patient been hospitalized within the prior 30 days at any hospital? Yes Coverage Notice Reviewer: [id number] Torres Summers Notice Issued Date-Time: 11/09/2018 12:05 Notice Type: IM Discharge Notice Notice Delivered To: Patient Relationship to Patient: Fisher Name: Delivery Method: HAND - Hand Delivered Latesha Days: Prior Verbal Notification: Recipient Understood Notice: Yes Recipient Signature: Yes Med Rec Note Co-signed by Attending: Coverage Notice Comment: Last DP export: 11/09/18 2:24 p Patient Name: TYLER GIBBS Page 99933 at 1640 All edits/amendments must be made on the electronic document DICTATION DATE: 11/09/181638 HEALTH COACH: FAMILIA 11/09/181638 RPT#: [id number] DC DATE: STATUS: ADM IN [facility] [address] [place] [address] END OF REPORT
--- NOTE | 2018-11-09 17:30 | NUR ---
AT SIDE. WITHOUT CHANGES OR DISTRESS NOTED AT THIS TIME.
--- NOTE | 2018-11-09 19:05 | NUR ---
PT LAYING IN BED. CPAP ON. AT BEDSIDE. PT DENIES ANY NEEDS. GOING HOME. PT WILL CALL FOR ASSIST WHEN NEEDED. NO S/S OF DISTRESS. NAME AND DATE PLACED ON BOARD. WILL CPOC
--- NOTE | 2018-11-09 19:45 | NUR ---
PT LAYING ON LEFT SIDE. CPAP ON, NS INFUSING AT 100 IRRIGATION INFUSING TO ADLER CATH. STRAWCOLOR, PT HAS NO S/S OF DISTRESS. WILL CPOC
[2018-11-09 20:00] VITALS: BP 155/84
--- NOTE | 2018-11-09 22:54 | NUR ---
NIGHT MEDICATIONS GIVEN. FSBS IS 167 2 UNITS GIVEN ORDERED. SNACK PROVIDED. PT IRRAGATION GOING. URINE YELLOW. PT HAS NO S/S OF DISTRESS. WILL CPOC
[2018-11-10] VITALS: BP 149/71
[2018-11-10 04:00] VITALS: BP 143/72
--- NOTE | 2018-11-10 04:15 | NUR ---
PT LAYING IN BED WITH EYES CLOSED. OPENS EYES WHEN NURSE ARRIVES IN ROOM. URINE YELLOW, PT DENIES ANY NEEDS. NO S/S OF DISTRESS. WILL CPOC
[2018-11-10 05:34] LABS: BASOPHILS 0.1 % (0-2); EOSINOPHILS 8.6 % (0-7); HEMATOCRIT 27.3 % (42.0-54.0); HEMOGLOBIN 9.2 g/dL (13.5-17.5); IMMATURE GRANULOCYTES 0.3 % (0-5); LYMPHOCYTES 13.5 % (15-50); MCH 29.6 pg (26.0-34.0); MCHC 33.7 g/dL (31.0-37.0); MCV 87.8 fL (80.0-100.0); MONOCYTES 12.4 % (2-11); NEUTROPHILS 65.1 % (40-80); PLATELET COUNT 256 10x3/uL (130-400); RBC 3.11 10x6/uL (4.20-6.10); RDW 15.7 % (11.5-14.5)
--- NOTE | 2018-11-10 05:45 | NUR ---
PT CALLING FOR BED TUCKER. NURSE ANSWERED. EMPTIED ADLER BAG AGAIN. MARKED IRRIGATION BAG AFTERWARDS FOR I AND O PT ON CPAP. MORNING MEDICATIONS GIVEN. PT WILL CALL FOR ASSIST WHEN NEEDED. WILL CPOC
[2018-11-10 06:01] LABS: ALKALINE PHOSPHATASE 75 U/L (46-116); ALT (SGPT) 10 U/L (10-68); BILIRUBIN - TOTAL 0.38 mg/dL (0.2-1.3); CALCIUM 8.2 mg/dL (8.5-10.1); CARBON DIOXIDE 28.7 mmol/L (21.0-32.0); CHLORIDE - SERUM 104 mmol/L (98-107); CREATININE - SERUM 0.9 mg/dL (0.6-1.3); PROTEIN - SERUM 5.5 g/dL (6.4-8.2); SODIUM 139 mmol/L (136-145); UREA NITROGEN 10 mg/dL (7-18); eGFR NON AFRICAN AMERICAN 84 mL/min (90-120)
--- NOTE | 2018-11-10 06:04 | NUR ---
PT HAD A MODERATE SOFT STOOL. CLEANED PT AND PT NOW SITTING UP SIPPING ON JUICE. PT DENIES ANY QUESTIONS OR CONCERNS ABOUT MORNING MEDICATIONS. CALL LIGHT IN REACH. WILL CPOC
[2018-11-10 06:15] LABS: CALC OSMOLALITY 279 mosm/kg (275-300); GLUCOSE 150 mg/dL (74-106); POTASSIUM - SERUM 3.2 mmol/L (3.5-5.1)
--- NOTE | 2018-11-10 06:19 | NUR ---
FSBS IS 150 NO INSULIN NEEDED PER SLIDING SCALE. PT VERBALIZED UNDERSTANDING. WILL CPOC
--- NOTE | 2018-11-10 06:37 | NUR ---
40 MEQ GIVEN FOR A POTASSIUM OF 3.2 PT VERBALIZED UNDERSTANDING. DENIES ANY NEEDS.
[2018-11-10 07:58] VITALS: BP 151/80
--- NOTE | 2018-11-10 10:16 | NUR ---
ADLER IRREGATION CLAMPED OFF. URINE OP CLEAR. WILL MONITOR.
--- NOTE | 2018-11-10 11:20 | NUR ---
1 UNIT PRBC STARTED. VS WNL. LINE IS PATENT.
[2018-11-10 12:45] VITALS: BP 144/72
--- NOTE | 2018-11-10 13:36 | NUR ---
BLOOD COMPLETED WITHOUT ADVERSE REACTIONS NOTED.
[2018-11-10 13:54] VITALS: Ht 185.4 cm; Wt 78.9 kg
--- NOTE | 2018-11-10 14:52 | NUR ---
AMBULATES HALLWAY WITH PT ASSIST.
[2018-11-10 16:15] VITALS: BP 137/63
--- NOTE | 2018-11-10 16:43 | NUR ---
URINE IS CLEAR YELLOW. DR. TANG HERE. ORDER RECEIVED TO REMOVE ADLER AT 0600 11/11. PT AND FAMILY UNDERSTAND
--- NOTE | 2018-11-10 19:14 | NUR ---
[facility] CALLED AND STATED THEY DID NOT HAVE A DR. THAT WILL ADMIT PATIENT TONIGHT SO IT WILL HAVE TO BE TOMORROW.
--- NOTE | 2018-11-10 19:34 | NUR ---
REPORT RECIEVED AND ROUNDING COMPLETE. PATIENT LAYING IN BED IN SUPINE POSITION. PATIENT HAS A ADLER 3 WAY CATH WITH IRRIGATION SIDE CLAMPED OFF, THERE IS CLEAR YELLOW URINE IN ADLER CATH BAG. PATIENT STATES HE IS HAVING LOOSE STOOLS AT THIS TIME. PATIENT HAS A RIGHT AC PIV WITH NORMAL SALINE RUNNING AT THIS TIME, NO S/SX OF INFILTRATION OR INFECTION. PATIENT STATES IS IN NO PAIN AT THE MOMENT. PATIENT IS SHOWING NO S/SX OF DISTRESS. PATIENT STATES HE HAS NO NEEDS AT THIS TIME. CALL LIGHT WITHIN REACH AND BED IN LOWEST LOCKED POSITION.
[2018-11-10 20:00] VITALS: BP 157/84
[2018-11-11 00:34] VITALS: BP 154/83
--- NOTE | 2018-11-11 04:01 | NUR ---
I have reviewed this patient and I concur with the Shift Assessment completed by the Licensed Practical Nurse today this shift.
[2018-11-11 05:01] VITALS: BP 146/76
[2018-11-11 05:32] LABS: BASOPHILS 0.2 % (0-2); EOSINOPHILS 6.7 % (0-7); HEMATOCRIT 29.2 % (42.0-54.0); HEMOGLOBIN 9.8 g/dL (13.5-17.5); IMMATURE GRANULOCYTES 0.2 % (0-5); LYMPHOCYTES 19.7 % (15-50); MCHC 33.6 g/dL (31.0-37.0); MCV 86.4 fL (80.0-100.0); MONOCYTES 12.5 % (2-11); NEUTROPHILS 60.7 % (40-80); PLATELET COUNT 250 10x3/uL (130-400); RBC 3.38 10x6/uL (4.20-6.10); RDW 15.3 % (11.5-14.5); WBC 9.9 10x3/uL (4.8-10.8)
[2018-11-11 05:42] LABS: ALBUMIN 1.9 g/dL (3.4-5.0); ALKALINE PHOSPHATASE 70 U/L (46-116); ALT (SGPT) 12 U/L (10-68); BILIRUBIN - TOTAL 0.45 mg/dL (0.2-1.3); CALC OSMOLALITY 276 mosm/kg (275-300); CARBON DIOXIDE 27.1 mmol/L (21.0-32.0); CHLORIDE - SERUM 105 mmol/L (98-107); CREATININE - SERUM 0.9 mg/dL (0.6-1.3); GLUCOSE 124 mg/dL (74-106); POTASSIUM - SERUM 3.1 mmol/L (3.5-5.1); PROTEIN - SERUM 5.3 g/dL (6.4-8.2); SODIUM 139 mmol/L (136-145); UREA NITROGEN 8 mg/dL (7-18); eGFR NON AFRICAN AMERICAN 84 mL/min (90-120)
--- NOTE | 2018-11-11 06:13 | NUR ---
PATIENT'S FOLET RMOVED PER ORDER. PATIENT TOLERATED WELL. NO OTHER NEEDS AT THIS TIME.
--- NOTE | 2018-11-11 07:40 | NUR ---
ASSESSMENT COMPLETED. ALERT AND ORIENTED. TELEMERTY SHOWS SR81. RIGHT AC IV WITH NS AT 100. PT IS UP AB DEANA. PT HAS NOT VOIDED SINCE FLOEY REMOVED. WILL DO A BLADDER SCANNER
[2018-11-11 08:57] VITALS: BP 158/76
--- NOTE | 2018-11-11 12:26 | MORECARE ---
CASE MANAGEMENT DISCHARGE SUMMARY PATIENT: TYLER GIBBS UNIT: [id number] ADM DATE: 11/05/18 AGE: 88 : [birth year] SEX: M ROOM/BED: D.7829 AUTHOR: ROLLY,DOC PHYSICIAN: REFERRING PHYSICIAN: GISEL GREENFIELD MD DATE OF SERVICE: 11/11/18 Discharge Plan Patient Name: TYLER GIBBS Facility: [facility]:[place] : 1930 Planned Disposition: Home with Home Health Anticipated Discharge Date: 11/11/18 Discharge Date: Expected LOS: 6 Initial Reviewer: [id number] Initial Review Date: 11/05/2018 Generated: 11/11/18 1:25 pm Comments DCP- Discharge Planning Updated by [id number]: Jose D Summers on 11/09/18 2:[address] Patient Name: TYLER GIBBS Encounter No: [id number] : 1930 Primary Insurance: MEDICARE A & B Anticipated DC Date: 11-09-2018 Planned Disposition: Acute Care Hospital External Planned Provider: [facility] DCP follow-up note: CM RECEIVED CALL FROM JACOB GIBBS, PT'S SON, , WHO REPORTED BEING UNHAPPY WITH DR. TANG AND THE CARE PT HAS RECEIVED FROM THE DOCTOR. JOVITA SPOKE TO PT AND PT'S SPOUSE IN ROOM, ASKED IF IT IS OK TO SHARE INFORMATION REGARDING PT'S CARE AND TREATMENT WITH JACOB, PT REPORTS TO TELL JACOB ANYTHING HE WANTS TO KNOW. JACOB PLANS TO COMPLAIN TO HOSPITAL ADMINISTRATION. JACOB ASKED ABOUT WHAT THE TREATMENT PLAN IS, JOVITA EXPLANED THAT PT HAS REQUESTED TRANSFER TO [facility] IN [place]. JACOB ASKED CM TO CALL WHEN STATUS OF TRANSFER IS KNOWN. CM RECEIVED ORDER FOR TRANSFER SPOKE TO COMPUTATIONAL MATHEMATICIAN KARAN WHO INFORMED CM THAT THE DOCTOR WILL NEED TO SPEAK TO [employer]ELON FOR APPROVAL OF TRANSFER. JOVITA LATER RECEIVED MESSAGE FROM COMPUTATIONAL MATHEMATICIAN KARAN FOR CM TO PROCEED WITH TRANSFER REQUEST. CM CALLED [facility] EASY ADMIT LINE, , SPOKE TO MIGUEL WHO TOOK INFORMATION FOR TRANSFER REQUEST AND WILL CONTACT [facility]. JOVITA FAXED FACE SHEET AT REQUESTED TO [facility] ADMIT AT [phone]. CM WAITING TRANSFER CENTER TO DETERMINE IF A PHYSICIAN WILL ACCEPT AND IF BED IS AVAILABLE FOR TRANSFER TO [facility]. CM TO CONTINUE TO FOLLOW AND ASSIST NEEDED. Jose D Summers, CASE MANAGEMENT DCP- Discharge Planning Updated by [id number]: Jose D Summers on 11/09/18 11:[address] Patient Name: TYLER GIBBS Admission Status: ER Accout number: [id number] Admission Date: 11-05-2018 : 1930 Admission Diagnosis: Attending: GISEL GREENFIELD Current LOS: 4 Anticipated DC Date: 11-09-2018 Planned Disposition: Acute Care Hospital Primary Insurance: MEDICARE A & B PLANNED EXTERNAL PROVIDER: [facility] Discharge Planning Comments: CM INFORMED THAT PT WANTS TRASFER TO [facility] IN [place]. CM MET WITH PT AND SPOUSE IN ROOM TO DISCUSS DISCHARGE PLANNING AND NEEDS. TYLER GIBBS provided verbal consent to discuss current and ongoing needs with/in the presence of: SPOUSE, JYOTI. PT REPORTS LIVING AT HOME INDEPENDENTLY WITH HIS . PT HAS CPAP AND WALKER FROM [employer] [facility]. PT HAS HOME HEALTH WITH [employer] [facility]. CM DISCUSSED AVAILABILITY OF HOME HEALTH, REHAB SERVICES AND MEDICAL EQUIPMENT. PT REPORTS WANTING TRANSFER TO [facility] TO SEE ANOTHER UROLOGIST, PT'S SPOUSE REPORTS THEY WILL FEEL MORE COMFORTABLE WITH HAVING MORE UROLOGISTS TO CARE FOR PT'S NEEDS. CM DISCUSSED THIS REQUEST FOR TRANSFER BEING A "LATERAL" TRANSFER, BOTH REPORT UNDERSTANDING AND ALSO AGREE THAT THEY WILL PAY FOR THE AMBULANCE TRANSPORT TO [facility]. PT'S SPOUSE REPORTS THEY HAVE A [employer] MEMBERSHIP THAT MAY ASSIST WITH THE BILL, BUT IF, THEY WILL TAKE CARE OF PAYMENT. IMPORTANT MESSAGE FROM MEDICARE PROVIDED AND EXPLAINED. CM EXPLAINED PROCESS OF TRANSFER TO ANOTHER HOSPITAL. PT AND SPOUSE REPORT THEY HAVE ALREADY TALKED TO DR. BORJAS AND REQUESTED THE TRANSFER. CM WAITING ON PHYSICIAN ORDERS FOR TRANSFER TO CONTINUE WORKING ON THE PROCESS. Rock Star: Jose D Summers DCPIA - Discharge Planning Initial Assessment Updated by [id number]: Jose D Summers on 11/09/18 12:26 pm * Is the patient Alert and Oriented? Yes * How many steps to enter\\exit or inside your home? 0-O / 12-I * PCP [facility], [place] REPORTS HAVING APPOINTMENT FOR NEW PRIMARY CARE, DR. ALEJANDRA, IN DECEMBER * Pharmacy [facility] * Preadmission Environment Home with Family * ADLs Independent * Equipment CPAP Walker * Other Equipment [facility] - MEDICAL EQUIPMENT PROVIDER * List name and contact numbers for known caregivers / representatives who currently or will assist patient after discharge: JYOTI GIBBS, SPOUSE, * Verbal permission to speak to the caregivers and representatives has been obtained from the patient. Yes * Community resources currently utilized Home Health * Please name any agencies selected above. [facility] * Additional services required to return to the preadmission environment? Yes * Can the patient safely return to the preadmission environment? Yes * Has this patient been hospitalized within the prior 30 days at any hospital? Yes Coverage Notice Reviewer: JULIET Summers Notice Issued Date-Time: 11/09/2018 12:05 Notice Type: IM Discharge Notice Notice Delivered To: Patient Relationship to Patient: Acid Cutter Name: Delivery Method: HAND - Hand Delivered Latesha Days: Prior Verbal Notification: Recipient Understood Notice: Yes Recipient Signature: Yes Med Rec Note Co-signed by Attending: Coverage Notice Comment: Reviewer: JULIET Summers Notice Issued Date-Time: 11/11/2018 12:20 Notice Type: IM Discharge Notice Notice Delivered To: Patient Relationship to Patient: Acid Cutter Name: Delivery Method: HAND - Hand Delivered Latesha Days: Prior Verbal Notification: Recipient Understood Notice: Yes Recipient Signature: Yes Med Rec Note Co-signed by Attending: Coverage Notice Comment: Last DP export: 11/09/18 3:40 p Patient Name: TYLER GIBBS Page [id number] at 1226 All edits/amendments must be made on the electronic document DICTATION DATE: 11/11/18 1225 COMPUTER PROGRAMMING MANAGER: FAMILIA 11/11/18 1225 RPT#: [id number] DC DATE: STATUS: ADM IN [facility] [address] [place] [address] END OF REPORT
--- NOTE | 2018-11-11 12:33 | MORECARE ---
CASE MANAGEMENT DISCHARGE SUMMARY PATIENT: TYLER GIBBS UNIT: [id number] ADM DATE: 11/05/18 AGE: 88 : [birth year] SEX: M ROOM/BED: D.1574 AUTHOR: ROLLY,DOC PHYSICIAN: REFERRING PHYSICIAN: GISEL GREENFIELD MD DATE OF SERVICE: 11/11/18 Discharge Plan Patient Name: TYLER GIBBS Facility: [facility]:[place] : 1930 Planned Disposition: Home with Home Health Anticipated Discharge Date: 11/11/18 Discharge Date: Expected LOS: 6 Initial Reviewer: [id number] Initial Review Date: 11/05/2018 Generated: 11/11/18 1:33 pm Comments DCP- Discharge Planning Updated by [id number]: Jose D Summers on 11/09/18 2:[address] Patient Name: TYLER GIBBS Encounter No: [id number] : 1930 Primary Insurance: MEDICARE A & B Anticipated DC Date: 11-09-2018 Planned Disposition: Acute Care Hospital External Planned Provider: [facility] DCP follow-up note: CM RECEIVED CALL FROM JACOB GIBBS, PT'S SON, , WHO REPORTED BEING UNHAPPY WITH DR. TANG AND THE CARE PT HAS RECEIVED FROM THE DOCTOR. JOVITA SPOKE TO PT AND PT'S SPOUSE IN ROOM, ASKED IF IT IS OK TO SHARE INFORMATION REGARDING PT'S CARE AND TREATMENT WITH JACOB, PT REPORTS TO TELL JACOB ANYTHING HE WANTS TO KNOW. JACOB PLANS TO COMPLAIN TO HOSPITAL ADMINISTRATION. JACOB ASKED ABOUT WHAT THE TREATMENT PLAN IS, JOVITA EXPLANED THAT PT HAS REQUESTED TRANSFER TO [facility] IN [place]. JACOB ASKED CM TO CALL WHEN STATUS OF TRANSFER IS KNOWN. CM RECEIVED ORDER FOR TRANSFER SPOKE TO PERSONNEL COUNSELOR KARAN WHO INFORMED CM THAT THE DOCTOR WILL NEED TO SPEAK TO [employer] FOR APPROVAL OF TRANSFER. JOVITA LATER RECEIVED MESSAGE FROM PERSONNEL COUNSELOR KARAN FOR CM TO PROCEED WITH TRANSFER REQUEST. CM CALLED [facility] EASY ADMIT LINE, , SPOKE TO MIGUEL WHO TOOK INFORMATION FOR TRANSFER REQUEST AND WILL CONTACT [facility]. JOVITA FAXED FACE SHEET AT REQUESTED TO [facility] EASY ADMIT AT [phone]. CM WAITING TRANSFER CENTER TO DETERMINE IF A PHYSICIAN WILL ACCEPT AND IF BED IS AVAILABLE FOR TRANSFER TO [facility]. CM TO CONTINUE TO FOLLOW AND ASSIST NEEDED. Jose D Summers, CASE MANAGEMENT DCP- Discharge Planning Updated by [id number]: Jose D Summers on 11/09/18 11:[address] Patient Name: TYLER GIBBS Admission Status: ER Accout number: [id number] Admission Date: 11-05-2018 : 1930 Admission Diagnosis: Attending: GISEL GREENFIELD Current LOS: 4 Anticipated DC Date: 11-09-2018 Planned Disposition: Acute Care Hospital Primary Insurance: MEDICARE A & B PLANNED EXTERNAL PROVIDER: [facility] Discharge Planning Comments: CM INFORMED THAT PT WANTS TRASFER TO [facility] IN [place]. CM MET WITH PT AND SPOUSE IN ROOM TO DISCUSS DISCHARGE PLANNING AND NEEDS. TYLER GIBBS provided verbal consent to discuss current and ongoing needs with/in the presence of: SPOUSE, JYOTI. PT REPORTS LIVING AT HOME INDEPENDENTLY WITH HIS . PT HAS CPAP AND WALKER FROM [employer] [facility]. PT HAS HOME HEALTH WITH [employer] [facility]. CM DISCUSSED AVAILABILITY OF HOME HEALTH, REHAB SERVICES AND MEDICAL EQUIPMENT. PT REPORTS WANTING TRANSFER TO [facility] TO SEE ANOTHER UROLOGIST, PT'S SPOUSE REPORTS THEY WILL FEEL MORE COMFORTABLE WITH HAVING MORE UROLOGISTS TO CARE FOR PT'S NEEDS. CM DISCUSSED THIS REQUEST FOR TRANSFER BEING A "LATERAL" TRANSFER, BOTH REPORT UNDERSTANDING AND ALSO AGREE THAT THEY WILL PAY FOR THE AMBULANCE TRANSPORT TO [facility]. PT'S SPOUSE REPORTS THEY HAVE A [employer] MEMBERSHIP THAT MAY ASSIST WITH THE BILL, BUT IF, THEY WILL TAKE CARE OF PAYMENT. IMPORTANT MESSAGE FROM MEDICARE PROVIDED AND EXPLAINED. CM EXPLAINED PROCESS OF TRANSFER TO ANOTHER HOSPITAL. PT AND SPOUSE REPORT THEY HAVE ALREADY TALKED TO DR. BORJAS AND REQUESTED THE TRANSFER. CM WAITING ON PHYSICIAN ORDERS FOR TRANSFER TO CONTINUE WORKING ON THE PROCESS. Civil Drafting Technician: Jose D Summers DCPIA - Discharge Planning Initial Assessment Updated by [id number]: Jose D Summers on 11/09/18 12:26 pm * Is the patient Alert and Oriented? Yes * How many steps to enter\\exit or inside your home? 0-O / 12-I * PCP [facility], RICKI SEVILLA REPORTS HAVING APPOINTMENT FOR NEW PRIMARY CARE, DR. ALEJANDRA, IN [place] * Pharmacy [facility] * Preadmission Environment Home with Family * ADLs Independent * Equipment CPAP Walker * Other Equipment [facility] - MEDICAL EQUIPMENT PROVIDER * List name and contact numbers for known caregivers / representatives who currently or will assist patient after discharge: JYOTI GIBBS, SPOUSE, * Verbal permission to speak to the caregivers and representatives has been obtained from the patient. Yes * Community resources currently utilized Home Health * Please name any agencies selected above. [facility] * Additional services required to return to the preadmission environment? Yes * Can the patient safely return to the preadmission environment? Yes * Has this patient been hospitalized within the prior 30 days at any hospital? Yes Coverage Notice Reviewer: [id number] Summers Notice Issued Date-Time: 11/09/2018 12:05 Notice Type: IM Discharge Notice Notice Delivered To: Patient Relationship to Patient: Juice Mixer Name: Delivery Method: HAND - Hand Delivered Latesha Days: Prior Verbal Notification: Recipient Understood Notice: Yes Recipient Signature: Yes Med Rec Note Co-signed by Attending: Coverage Notice Comment: Reviewer: JULIET Summers Notice Issued Date-Time: 11/11/2018 12:20 Notice Type: IM Discharge Notice Notice Delivered To: Patient Relationship to Patient: Juice Mixer Name: Delivery Method: HAND - Hand Delivered Latesha Days: Prior Verbal Notification: Recipient Understood Notice: Yes Recipient Signature: Yes Med Rec Note Co-signed by Attending: Coverage Notice Comment: Last DP export: 11/11/18 11:26 a Patient Name: TYLER GBIBS Page [id number] at 1233 All edits/amendments must be made on the electronic document DICTATION DATE: 11/11/18 1233 STRUCTURAL STEEL ERECTOR: FAMILIA 11/11/18 1233 RPT#: [id number] DC DATE: STATUS: ADM IN [facility] [address] [place] [address] END OF REPORT
--- NOTE | 2018-11-11 12:40 | MORECARE ---
CASE MANAGEMENT DISCHARGE SUMMARY PATIENT: TYLER GIBBS UNIT: [id number] ADM DATE: 11/05/18 AGE: 88 : [birth year] SEX: M ROOM/BED: D.3195 AUTHOR: FIDE LOFTON PHYSICIAN: REFERRING PHYSICIAN: GISEL GREENFIELD MD DATE OF SERVICE: 11/11/18 Discharge Plan Patient Name: TYLER GIBBS Facility: [facility]:[place] : 1930 Planned Disposition: Home with Home Health Anticipated Discharge Date: 11/11/18 Discharge Date: Expected LOS: 6 Initial Reviewer: [email or web address] Initial Review Date: 11/05/2018 Generated: 11/11/18 1:40 pm Comments DCP- Discharge Planning Updated by [id number]: Jose D Summers on 11/11/18 11:[address] Patient Name: TYLER GIBBS Encounter No: [id number] : 1930 Primary Insurance: MEDICARE A & B Anticipated DC Date: 11-11-2018 Planned Disposition: Home with Home Health External Planned Provider: [facility] DCP follow-up note: CM RECEIVED DISCHARGE ORDER, MET WITH PT AND SPOUSE IN ROOM, PT REPORTS HE IS GOING HOME TODAY AND THEY DO NOT NEED THE TRANSFER TO [facility]. PT WOULD LIKE HOME HEALTH RESUMPTION, HE NOR CAN REMEMBER THE NAME OF THE COMPANY THEY CAME OUT ONLY ONCE. CM INFORMED PT THAT CM WILL HAVE [facility] RESUMED. IMPORTANT MESSAGE FROM MEDICARE PROVIDED AND EXPLAINED. CM DISCUSSED MEDICAL EQUIPMENT AND REHAB SERVICES, PT REPORTS WALKING AROUND THE NURSES STATION TWICE WITHOUT DEVICE OR ASSITANCE, HE BELIVES DOES NOT NEED REHAB OR DEVICE TO DISCHARGE HOME TODAY. PT DENIES FURTHER DISCHARGE NEEDS, SPOUSE TO TRANSPORT HOME. CM CALLED [facility], , SPOKE TO NISSA WHO VERIFIED THEY CAN RESUME PT'S HOME HEALTH. CM FAXED REFERRAL AND DISCHARGE INFORMATION TO [facility] AT [phone]. MEDICAL SALES ASSOCIATE NURSE NOTIFED. Jose D Summers. CASE MANAGEMENT DCP- Discharge Planning Updated by [id number]: Jose D Summers on 11/09/18 2:[address] Patient Name: TYLER GIBBS Encounter No: [id number] : 1930 Primary Insurance: MEDICARE A & B Anticipated DC Date: 11-09-2018 Planned Disposition: [facility] External Planned Provider: [facility] DCP follow-up note: CM RECEIVED CALL FROM JACOB GIBBS, PT'S SON, , WHO REPORTED BEING UNHAPPY WITH DR. TANG AND THE CARE PT HAS RECEIVED FROM THE DOCTOR. CM SPOKE TO PT AND PT'S SPOUSE IN ROOM, ASKED IF IT IS OK TO SHARE INFORMATION REGARDING PT'S CARE AND TREATMENT WITH JACOB, PT REPORTS TO TELL JACOB ANYTHING HE WANTS TO KNOW. JACOB PLANS TO COMPLAIN TO HOSPITAL ADMINISTRATION. JACOB ASKED ABOUT WHAT THE TREATMENT PLAN IS, CM EXPLANED THAT PT HAS REQUESTED TRANSFER TO [facility]. JACOB ASKED CM TO CALL WHEN STATUS OF TRANSFER IS KNOWN. CM RECEIVED ORDER FOR TRANSFER SPOKE TO FEATHER CUTTING MACHINE FEEDER KARAN WHO INFORMED CM THAT THE DOCTOR WILL NEED TO SPEAK TO [facility] FOR APPROVAL OF TRANSFER. CM LATER RECEIVED MESSAGE FROM FEATHER CUTTING MACHINE FEEDER KARAN FOR CM TO PROCEED WITH TRANSFER REQUEST. CM CALLED [facility] ADMIT LINE, , SPOKE TO MIGUEL WHO TOOK INFORMATION FOR TRANSFER REQUEST AND WILL CONTACT [facility]. CM FAXED FACE SHEET AT REQUESTED TO [facility] AT [phone]. CM WAITING TRANSFER CENTER TO DETERMINE IF A PHYSICIAN WILL ACCEPT AND IF BED IS AVAILABLE FOR TRANSFER TO [facility]. CM TO CONTINUE TO FOLLOW AND ASSIST NEEDED. Jose D Summers, CASE MANAGEMENT DCP- Discharge Planning Updated by [id number]: Jose D Summers on 11/09/18 11:[address] Patient Name: TYLER GIBBS Admission Status: ER Accout number: [id number] Admission Date: 11-05-2018 : 1930 Admission Diagnosis: Attending: GISEL GREENFIELD Current LOS: 4 Anticipated DC Date: 11-09-2018 Planned Disposition: [facility] Primary Insurance: MEDICARE A & B PLANNED EXTERNAL PROVIDER: [facility] Discharge Planning Comments: CM INFORMED THAT PT WANTS TRASFER TO [facility]. CM MET WITH PT AND SPOUSE IN ROOM TO DISCUSS DISCHARGE PLANNING AND NEEDS. TYLER GIBBS provided verbal consent to discuss current and ongoing needs with/in the presence of: SPOUSE, JYOTI. PT REPORTS LIVING AT HOME INDEPENDENTLY WITH HIS . PT HAS CPAP AND WALKER FROM [facility]. PT HAS HOME HEALTH WITH [facility]. CM DISCUSSED AVAILABILITY OF HOME HEALTH, REHAB SERVICES AND MEDICAL EQUIPMENT. PT REPORTS WANTING TRANSFER TO [facility] TO SEE ANOTHER UROLOGIST, PT'S SPOUSE REPORTS THEY WILL FEEL MORE COMFORTABLE WITH HAVING MORE UROLOGISTS TO CARE FOR PT'S NEEDS. CM DISCUSSED THIS REQUEST FOR TRANSFER BEING A "LATERAL" TRANSFER, BOTH REPORT UNDERSTANDING AND ALSO AGREE THAT THEY WILL PAY FOR THE AMBULANCE TRANSPORT TO [facility] IN [place]. PT'S SPOUSE REPORTS THEY HAVE A [employer] MEMBERSHIP THAT MAY ASSIST WITH THE BILL, BUT IF, THEY WILL TAKE CARE OF PAYMENT. IMPORTANT MESSAGE FROM MEDICARE PROVIDED AND EXPLAINED. CM EXPLAINED PROCESS OF TRANSFER TO ANOTHER HOSPITAL. PT AND SPOUSE REPORT THEY HAVE ALREADY TALKED TO DR. BORJAS AND REQUESTED THE TRANSFER. CM WAITING ON PHYSICIAN ORDERS FOR TRANSFER TO CONTINUE WORKING ON THE PROCESS. Manager Home: Jose D Summers DCPIA - Discharge Planning Initial Assessment Updated by [id number]: Jose D Summers on 11/09/18 12:26 pm * Is the patient Alert and Oriented? Yes * How many steps to enter\\exit or inside your home? 0-O / 12-I * PCP [facility], RICKI SEVILLA REPORTS HAVING APPOINTMENT FOR NEW PRIMARY CARE, DR. ALEJANDRA, IN DECEMBER * [facility] #[facility] * Preadmission Environment Home with Family * ADLs Independent * Equipment CPAP Walker * Other Equipment [facility] - MEDICAL EQUIPMENT PROVIDER * List name and contact numbers for known caregivers / representatives who currently or will assist patient after discharge: JYOTI GIBBS, SPOUSE, * Verbal permission to speak to the caregivers and representatives has been obtained from the patient. Yes * Community resources currently utilized Home Health * Please name any agencies selected above. [facility] * Additional services required to return to the preadmission environment? Yes * Can the patient safely return to the preadmission environment? Yes * Has this patient been hospitalized within the prior 30 days at any hospital? Yes Coverage Notice Reviewer: [id number] - Jose D Summers Notice Issued Date-Time: 11/09/2018 12:05 Notice Type: IM Discharge Notice Notice Delivered To: Patient Relationship to Patient: Refueler Name: Delivery Method: HAND - Hand Delivered Latesha Days: Prior Verbal Notification: Recipient Understood Notice: Yes Recipient Signature: Yes Med Rec Note Co-signed by Attending: Coverage Notice Comment: Reviewer: [id number] - Jose D Summers Notice Issued Date-Time: 11/11/2018 12:20 Notice Type: IM Discharge Notice Notice Delivered To: Patient Relationship to Patient: Refueler Name: Delivery Method: HAND - Hand Delivered Latesha Days: Prior Verbal Notification: Recipient Understood Notice: Yes Recipient Signature: Yes Med Rec Note Co-signed by Attending: Coverage Notice Comment: Last DP export: 11/11/18 11:33 a Patient Name: TYLER GIBBS Page [id number] at 1240 All edits/amendments must be made on the electronic document DICTATION DATE: 11/11/18 1240 ELECTRICIAN SHOP: FAMILIA 11/11/18 1240 RPT#: [id number] DC DATE: STATUS: ADM IN [facility] [address] [place] [address] END OF REPORT
[2018-11-11 13:07] VITALS: BP 154/77
--- NOTE | 2018-11-12 12:15 | MORECARE ---
CASE MANAGEMENT DISCHARGE SUMMARY PATIENT: TYLER GIBBS UNIT: [id number] ADM DATE: 11/05/18 AGE: 88 : [birth year] SEX: M ROOM/BED: D.6767 AUTHOR: ROLLY,DOC PHYSICIAN: REFERRING PHYSICIAN: GISEL GREENFIELD MD DATE OF SERVICE: 11/12/18 Discharge Plan Patient Name: TYLER GIBBS Facility: [facility]:[place] : 1930 Planned Disposition: Home with Home Health Anticipated Discharge Date: 11/11/18 Discharge Date: 11/11/2018 Expected LOS: 6 Initial Reviewer: [email or web address] Initial Review Date: 11/05/2018 Generated: 11/12/18 1:15 pm Comments DCP- Discharge Planning Updated by [id number]: Jose D Summers on 11/11/18 11:[address] Patient Name: TYLER GIBBS Encounter No: [id number] : 1930 Primary Insurance: MEDICARE A & B Anticipated DC Date: 11-11-2018 Planned Disposition: Home with Home Health External Planned Provider: [facility] DCP follow-up note: CM RECEIVED DISCHARGE ORDER, MET WITH PT AND SPOUSE IN ROOM, PT REPORTS HE IS GOING HOME TODAY AND THEY DO NOT NEED THE TRANSFER TO [facility]. PT WOULD LIKE HOME HEALTH RESUMPTION, HE NOR CAN REMEMBER THE NAME OF THE COMPANY THEY CAME OUT ONLY ONCE. CM INFORMED PT THAT CM WILL HAVE [facility] RESUMED. IMPORTANT MESSAGE FROM MEDICARE PROVIDED AND EXPLAINED. CM DISCUSSED MEDICAL EQUIPMENT AND REHAB SERVICES, PT REPORTS WALKING AROUND THE NURSES STATION TWICE WITHOUT DEVICE OR ASSITANCE, HE BELIVES DOES NOT NEED REHAB OR DEVICE TO DISCHARGE HOME TODAY. PT DENIES FURTHER DISCHARGE NEEDS, SPOUSE TO TRANSPORT HOME. CM CALLED [facility], , SPOKE TO NISSA WHO VERIFIED THEY CAN RESUME PT'S HOME HEALTH. CM FAXED REFERRAL AND DISCHARGE INFORMATION TO [facility] AT [phone]. NETWORK ADMINISTRATOR NURSE NOTIFED. Jose D Summers. CASE MANAGEMENT DCP- Discharge Planning Updated by [id number]: Jose D Summers on 11/09/18 2:[address] Patient Name: TYLER GIBBS Encounter No: [id number] : 1930 Primary Insurance: MEDICARE A & B Anticipated DC Date: 11-09-2018 Planned Disposition: [facility] External Planned Provider: [facility] DCP follow-up note: CM RECEIVED CALL FROM JACOB GIBBS, PT'S SON, , WHO REPORTED BEING UNHAPPY WITH DR. TANG AND THE CARE PT HAS RECEIVED FROM THE DOCTOR. CM SPOKE TO PT AND PT'S SPOUSE IN ROOM, ASKED IF IT IS OK TO SHARE INFORMATION REGARDING PT'S CARE AND TREATMENT WITH JACOB, PT REPORTS TO TELL JACOB ANYTHING HE WANTS TO KNOW. JACOB PLANS TO COMPLAIN TO HOSPITAL ADMINISTRATION. JACOB ASKED ABOUT WHAT THE TREATMENT PLAN IS, CM EXPLANED THAT PT HAS REQUESTED TRANSFER TO [facility]. JACOB ASKED CM TO CALL WHEN STATUS OF TRANSFER IS KNOWN. CM RECEIVED ORDER FOR TRANSFER SPOKE TO TELEPHONE MESSENGER KARAN WHO INFORMED CM THAT THE DOCTOR WILL NEED TO SPEAK TO [facility] FOR APPROVAL OF TRANSFER. CM LATER RECEIVED MESSAGE FROM TELEPHONE MESSENGER KARAN FOR CM TO PROCEED WITH TRANSFER REQUEST. CM CALLED [facility] ADMIT LINE, , SPOKE TO MIGUEL WHO TOOK INFORMATION FOR TRANSFER REQUEST AND WILL CONTACT [facility]. CM FAXED FACE SHEET AT REQUESTED TO [facility] ADMIT AT [phone]. CM WAITING TRANSFER CENTER TO DETERMINE IF A PHYSICIAN WILL ACCEPT AND IF BED IS AVAILABLE FOR TRANSFER TO [facility]. CM TO CONTINUE TO FOLLOW AND ASSIST NEEDED. Jose D Summers, CASE MANAGEMENT DCP- Discharge Planning Updated by [id number]: Jose D Summers on 11/09/18 11:[address] Patient Name: TYLER GIBBS Admission Status: ER Accout number: [id number] Admission Date: 11-05-2018 : 1930 Admission Diagnosis: Attending: GISEL GREENFIELD Current LOS: 4 Anticipated DC Date: 11-09-2018 Planned Disposition: [facility] Primary Insurance: MEDICARE A & B PLANNED EXTERNAL PROVIDER: [facility] Discharge Planning Comments: CM INFORMED THAT PT WANTS TRASFER TO [facility]. CM MET WITH PT AND SPOUSE IN ROOM TO DISCUSS DISCHARGE PLANNING AND NEEDS. TYLER GIBBS provided verbal consent to discuss current and ongoing needs with/in the presence of: SPOUSE, JYOTI. PT REPORTS LIVING AT HOME INDEPENDENTLY WITH HIS . PT HAS CPAP AND WALKER FROM [facility]. PT HAS HOME HEALTH WITH [facility]. CM DISCUSSED AVAILABILITY OF HOME HEALTH, REHAB SERVICES AND MEDICAL EQUIPMENT. PT REPORTS WANTING TRANSFER TO [facility] TO SEE ANOTHER UROLOGIST, PT'S SPOUSE REPORTS THEY WILL FEEL MORE COMFORTABLE WITH HAVING MORE UROLOGISTS TO CARE FOR PT'S NEEDS. CM DISCUSSED THIS REQUEST FOR TRANSFER BEING A "LATERAL" TRANSFER, BOTH REPORT UNDERSTANDING AND ALSO AGREE THAT THEY WILL PAY FOR THE AMBULANCE TRANSPORT TO [facility] IN [place]. PT'S SPOUSE REPORTS THEY HAVE A [employer] MEMBERSHIP THAT MAY ASSIST WITH THE BILL, BUT IF, THEY WILL TAKE CARE OF PAYMENT. IMPORTANT MESSAGE FROM MEDICARE PROVIDED AND EXPLAINED. CM EXPLAINED PROCESS OF TRANSFER TO ANOTHER HOSPITAL. PT AND SPOUSE REPORT THEY HAVE ALREADY TALKED TO DR. BORJAS AND REQUESTED THE TRANSFER. CM WAITING ON PHYSICIAN ORDERS FOR TRANSFER TO CONTINUE WORKING ON THE PROCESS. Drafter Assistant: Jose D Summers DCPIA - Discharge Planning Initial Assessment Updated by [id number]: Jose D Summers on 11/09/18 12:26 pm * Is the patient Alert and Oriented? Yes * How many steps to enter\\exit or inside your home? 0-O / 12-I * PCP [facility], [place] REPORTS HAVING APPOINTMENT FOR NEW PRIMARY CARE, DR. ALEJANDRA, IN DECEMBER * [facility] #[facility] * Preadmission Environment Home with Family * ADLs Independent * Equipment CPAP Walker * Other Equipment [facility] - MEDICAL EQUIPMENT PROVIDER * List name and contact numbers for known caregivers / representatives who currently or will assist patient after discharge: JYOTI GIBBS, SPOUSE, * Verbal permission to speak to the caregivers and representatives has been obtained from the patient. Yes * Community resources currently utilized Home Health * Please name any agencies selected above. [facility] * Additional services required to return to the preadmission environment? Yes * Can the patient safely return to the preadmission environment? Yes * Has this patient been hospitalized within the prior 30 days at any hospital? Yes External Providers External Provider: [facility] Next Contact Date: 11/12/2018 Service Request Date: Service Type: Resolution: Reviewer: Comments: Coverage Notice Reviewer: [email or web address] - Jose D Summers Notice Issued Date-Time: 11/09/2018 12:05 Notice Type: IM Discharge Notice Notice Delivered To: Patient Relationship to Patient: Small Animal Veterinarian Name: Delivery Method: HAND - Hand Delivered Latesha Days: Prior Verbal Notification: Recipient Understood Notice: Yes Recipient Signature: Yes Med Rec Note Co-signed by Attending: Coverage Notice Comment: Reviewer: [id number] - Jose D Summers Notice Issued Date-Time: 11/11/2018 12:20 Notice Type: IM Discharge Notice Notice Delivered To: Patient Relationship to Patient: Small Animal Veterinarian Name: Delivery Method: HAND - Hand Delivered Latesha Days: Prior Verbal Notification: Recipient Understood Notice: Yes Recipient Signature: Yes Med Rec Note Co-signed by Attending: Coverage Notice Comment: Last DP export: 11/11/18 11:40 a Patient Name: TYLER GIBBS Page [phone] at 1215 All edits/amendments must be made on the electronic document DICTATION DATE: 11/12/18 1215 GRAPHITE DISK ASSEMBLER: FAMILIA 11/12/18 1215 RPT#: [id number] DC DATE:11/11/18 STATUS: DIS IN [facility] [address] [place] [address] END OF REPORT
[2018-11-12 16:09] LABS: AEROBE ID Final report (())
== END 2018-11-11 11:50 | disposition home health service (06) | DRG 908 ==
LOC: D.ER 06:24 → D.M2 06:39 → OBSVTIME 06:39 → D.M2 11:01
PROVIDERS: Family Medicine; Urology; ADMIT Emergency Medicine; ATTEND Emergency Medicine
PROC: 0TCB8ZZ Extirpation of Matter from Bladder, Via Natural or Artificial Opening Endoscopic (ICD-10-PCS; 2018-11-09)
PROC: 0T9B80Z Drainage of Bladder with Drainage Device, Via Natural or Artificial Opening Endoscopic (ICD-10-PCS; 2018-11-09)
PROC: 0W3R8ZZ Control Bleeding in Genitourinary Tract, Via Natural or Artificial Opening Endoscopic (ICD-10-PCS; principal; 2018-11-09 01:27)
DX: N99.820 Postprocedural hemorrhage of a genitourinary system organ or structure following a genitourinary system procedure (principal); N17.9 Acute kidney failure, unspecified; N13.30 Unspecified hydronephrosis; Y83.9 Surgical procedure, unspecified as the cause of abnormal reaction of the patient, or of later complication, without mention of misadventure at the time of the procedure; N32.89 Other specified disorders of bladder; E11.9 Type 2 diabetes mellitus without complications; D64.9 Anemia, unspecified; I25.10 Atherosclerotic heart disease of native coronary artery without angina pectoris